=== PATIENT | female | born 1955 | race Caucasian/White ===

== ENCOUNTER → 2021-08-17 11:25 | Outpatient (CLI) | payer BC, SELFPAY ==
--- NOTE | 2021-08-17 | DI.US.S_ITS ---
PROCEDURE: US ABD AORTA ANEURYSM SCREEN INDICATIONS: Personal history of other diseases of the circulatory system TECHNIQUE: Real time scanning was performed of the aorta and iliac arteries, with image documentation. COMPARISON: [facility], , US CAROTID DOPPLER , 08/17/2021, 12:12. FINDINGS: Aorta: Proximal aortic diameter measures 2.4 cm. Mid-aorta measures 1.9 cm. There is a fusiform distal abdominal aortic aneurysm seen that measures 3.7 cm AP x 3.8 cm transversely, with a craniocaudal extent of 5.2 cm. Iliac arteries: Right common iliac artery measures 0.6 cm. Left common iliac artery measures 0.8 cm. IMPRESSION: Fusiform distal abdominal aortic aneurysm seen measuring 3.7 cm AP. Dictated by: Nikita Bowman M.D. on 08/17/2021 at 13:11 Approved by: Nikita Bowman M.D. on 08/17/2021 at 13:12
--- NOTE | 2021-08-17 | DI.US.S_ITS ---
PROCEDURE: US CAROTID DOPPLER BI INDICATIONS: Personal history of other diseases of the circulatory system TECHNIQUE: Color and pulse Doppler interrogation was performed of both carotid systems, with image documentation and velocity measurements. COMPARISON: [facility], US, US ABD AORTA ANEURYSM SCREEN, 08/17/2021, 11:57. FINDINGS: Stenosis calculations are based on SRU (Society of Radiologists in Ultrasound) criteria. The flow velocities and the arterial waveforms are normal within both carotid arterial systems. Atherosclerotic plaque is seen on both sides. The estimated degree of internal carotid artery stenosis is less than 50%. Antegrade flow is confirmed within both vertebral arteries. IMPRESSION: No hemodynamically significant stenosis is seen. Dictated by: Nikita Bowman M.D. on 08/17/2021 at 13:13 Approved by: Nikita Bowman M.D. on 08/17/2021 at 13:13
== END ==
PROVIDERS: PCP Physician Assistant; Referring Provider Physician Assistant; Visit Provider Physician Assistant
DX: Z13.6 Encounter for screening for cardiovascular disorders (principal); I71.4 Abdominal aortic aneurysm, without rupture; Z86.79 Personal history of other diseases of the circulatory system
CPT/HCPCS: 76706; 93880

== ENCOUNTER → 2021-10-06 | Outpatient (CLI) | payer BC, SELFPAY ==
--- NOTE | 2021-10-06 11:57 | DI.CT.S_ITS ---
PROCEDURE: CT CHEST ABD PEL W CON INDICATIONS: lung cancer in 2018 TECHNIQUE: After the administration of oral and intravenous contrast, axial sections acquired from the supraclavicular neck to the pubic symphysis. Coronal and sagittal reformats were performed. For radiation dose reduction, the following was used: automated exposure control, adjustment of mA and/or kV according to patient size. COMPARISON:None. FINDINGS: Image quality: Excellent. CHEST: Lower Neck: No enlarged lymph nodes. Thyroid: Normal size Axillae: No enlarged lymph nodes. Chest Wall: Unremarkable. Lungs, pleural and Airways: Biapical pleural irregularity and septal thickening. Focal spiculation posteromedial right upper lobe without a solid component, likely scar. There has been a prior left lower lobectomy. No masses or nodules are identified. Findings are superimposed on moderate diffuse centrilobular emphysematous changes. No suspicious ground-glass opacities. . Heart: Heart size is normal. No pericardial effusion. Mild coronary calcification. Thoracic Vessels: The aorta and pulmonary arteries demonstrate normal size. Moderate atherosclerotic arch calcification. Mediastinum and Leslie: No left hilar adenopathy. Borderline precarinal lymph node at 1.3 cm. Minimally prominent left paratracheal lymph node at 0.8 cm. No right hilar adenopathy. Esophagus: Minor lower esophageal wall thickening. No hiatal hernia. ABDOMEN: Liver: No masses Gallbladder: Normal wall thickness. Biliary ducts: Nondilated. Pancreas: Normal. Spleen: Normal size. Adrenal Glands: No nodules. Kidneys and Ureters: Normal enhancement. Nonobstructing 4 mm right upper pole stone. No hydronephrosis or hydroureter. No calcifications. . Stomach and Bowel: Stomach, small bowel loops, and appendix are normal. There is extensive diverticular disease of the sigmoid colon. Colon and rectum are otherwise normal. Peritoneum: No abnormal intraperitoneal fluid. No free air. Ventral Wall: Tiny fat containing umbilical hernia. Abdominal Nodes: No retroperitoneal or mesenteric adenopathy by size criteria. Vessels: Fusiform distal abdominal aortic aneurysm 4.8 cm in length demonstrates a small amount of circumferential thrombus and measures 4.0 x 4.0 cm in cross-sectional diameter. Moderate calcification at iliac bifurcation and external iliac arteries. The inferior vena cava is normal caliber. PELVIS: Pelvic Organs: Surgically absent uterus. No visible ovarian tissue. Bladder: Normal wall thickness. Pelvic Nodes: No suspicious adenopathy. Miscellaneous: No soft tissue mass or inguinal hernias. Bones: No suspicious bone lesions. Degenerative disc change at L5-S1. IMPRESSION: 1. No evidence of residual disease post left lower lobectomy. 2. Mildly prominent mediastinal lymph nodes as described. Comparison to prior exams is recommended. 3. Moderate pulmonary emphysema. 4. Nonobstructing right upper pole intrarenal calculus. 5. Distal abdominal aortic aneurysm. Correlate with prior imaging. 6. Sigmoid diverticulosis. 7. No evidence of metastatic disease in the abdomen or pelvis. Dictated by: Becca Sam M.D. on 10/15/2021 at 13:52 Approved by: Becca Sam M.D. on 10/15/2021 at 14:07
== END ==
LOC: CT 10:57
PROVIDERS: PCP Physician Assistant; Referring Provider Internal Medicine Medical Oncology; Visit Provider Internal Medicine Medical Oncology
DX: Z08 Encounter for follow-up examination after completed treatment for malignant neoplasm (principal); Z85.118 Personal history of other malignant neoplasm of bronchus and lung; R59.0 Localized enlarged lymph nodes; J43.9 Emphysema, unspecified; N20.0 Calculus of kidney; I71.4 Abdominal aortic aneurysm, without rupture; K57.30 Diverticulosis of large intestine without perforation or abscess without bleeding
CPT/HCPCS: 71260; 74177

== ENCOUNTER → 2021-10-15 10:27 | Outpatient (CLI) | payer BC, SELFPAY ==
--- NOTE | 2021-10-15 | DI.US.S_ITS ---
PROCEDURE: US ABDOMEN COMPLETE INDICATIONS: GASTRO-ESOPHAGEAL REFLUX DISEASE TECHNIQUE: Real-time scanning was performed of the abdominal and retroperitoneal organs, with image documentation. COMPARISON: None. FINDINGS: Liver: The liver demonstrates normal size. The liver demonstrates generalized moderately increased echogenicity. This decreases ultrasound sensitivity for detection of hepatic masses. The main portal vein demonstrates normal size and demonstrates normal appearing, hepatopetal flow. Gallbladder: No findings of gallstones or sludge are seen. The gallbladder wall is not thickened, measuring 3 mm or less. No specific pericholecystic fluid is seen. The sonographic Boo sign is negative. Biliary ducts: Intrahepatic bile ducts are non-dilated. Extrahepatic bile duct caliber measures 5 mm. Normal is 6-7 mm or less in diameter, or 10 mm or less post-cholecystectomy. Pancreas: Visualized portions of the pancreas are sonographically normal. Spleen: Spleen is normal in size and homogeneous in echotexture. Kidneys: Kidneys are normal in size and echotexture. Right kidney measures 9.7 cm long; left kidney measures 10.3 cm long. No hydronephrosis. No solid masses. There is a 7 mm left inferior shadowing kidney stone seen. Aorta: There is a distal abdominal aortic aneurysm seen, measuring 3.9 cm AP x 4.1 cm transversely, a craniocaudal extent of 4.5 cm. Iliacs: Proximal common iliac arteries are normal in caliber at less than 2.5 cm. IVC: Intrahepatic inferior vena cava is patent. Miscellaneous: No free abdominal fluid. IMPRESSION: A cause of gastroesophageal reflux disease is not seen. The gallbladder demonstrates a normal sonographic appearance. No biliary dilatation is seen. The liver demonstrates increased echogenicity. This finding is nonspecific, yet it is most commonly attributed to fatty infiltration. Mild distal abdominal aortic aneurysm, measuring 3.9 cm AP. Dictated by: Nikita Bowman M.D. on 10/15/2021 at 10:40 Approved by: Nikita Bowman M.D. on 10/15/2021 at 10:42
== END ==
PROVIDERS: PCP Physician Assistant; Referring Provider Internal Medicine Gastroenterology; Visit Provider Internal Medicine Gastroenterology
DX: K21.9 Gastro-esophageal reflux disease without esophagitis (principal); I71.4 Abdominal aortic aneurysm, without rupture
CPT/HCPCS: 76700

== ENCOUNTER → 2022-01-18 12:32 | Outpatient (CLI) | payer BC, SELFPAY ==
--- NOTE | 2022-01-18 | DI.MG.S_ITS ---
BILATERAL DIGITAL SCREENING MAMMOGRAM 3D/2D WITH CAD: 01/18/2022 CLINICAL: Routine screening. Family history of breast cancer. Comparison is made to exams dated: 03/13/2020 mammogram and 01/01/2019 mammogram - out side. Both breasts are almost entirely fatty (category a/<25% glandular tissue). Current study was also evaluated with a Computer Aided Detection (CAD) system. No significant masses, calcifications, or other findings are seen in either breast. There has been no significant interval change. IMPRESSION: NEGATIVE There is no mammographic evidence of malignancy. A 1 year screening mammogram is recommended. Based on the Tyrer Cuzick model (a risk assessment model) the patient's lifetime risk is 3.2% and her 10 year risk is 1.5%. According to the ACR, ACS, and NCCN guidelines, an annual breast MRI exam along with mammogram is recommended if the patient's lifetime risk is 20% or greater. This exam was interpreted at Station ID: [id number]. NOTE: For mammograms, a report in lay terms will be sent to the patient. Approximately 15% of breast malignancies will not be visualized mammographically. In the management of a palpable breast mass, a negative mammogram must not discourage biopsy of a clinically suspicious lesion. Electronically Signed By: Kishan tipton/cait:01/18/2022 13:53:52 letter sent: Normal Exam ACR BI-RADS Category 1: Negative 3341F
--- NOTE | 2022-01-18 12:34 | DI.US.S_ITS ---
PROCEDURE: US THYROID INDICATIONS: Nontoxic single thyroid nodule; Breast screning TECHNIQUE: Real-time scanning was performed of the thyroid gland, with image documentation. COMPARISON: None. FINDINGS: In the right superior thyroid a there is a 3 millimeter predominantly cystic hypoechoic nodule with smooth margins and a traversing septation. No punctate microcalcifications identified. Otherwise normal appearance of the thyroid. IMPRESSION: Tiny 3 millimeter right thyroid lobe nodule appears cystic. Follow-up in 12 months recommended to document stability. Dictated by: Marquis Mo M.D. on 01/18/2022 at 15:55 Approved by: Marquis Mo M.D. on 01/18/2022 at 15:56
== END ==
PROVIDERS: PCP Physician Assistant; Referring Provider Physician Assistant; Visit Provider Physician Assistant
DX: E04.1 Nontoxic single thyroid nodule (principal); Z12.31 Encounter for screening mammogram for malignant neoplasm of breast; Z80.3 Family history of malignant neoplasm of breast
CPT/HCPCS: 76536; 77063; 77067

== ENCOUNTER → 2022-03-16 11:56 | Outpatient (CLI) | payer BC, SELFPAY ==
--- NOTE | 2022-03-16 | DI.RAD.S_ITS ---
PROCEDURE: XR FOOT LT MIN 3V INDICATIONS: foot pain TECHNIQUE: 3 views of the foot were acquired. COMPARISON: [facility], CR, XR FOOT RT MIN 3V, 03/16/2022, 12:05. FINDINGS: Bones: No fractures or dislocations. No suspicious bony lesions. Mild 1st MTP and diffuse interphalangeal joint space narrowing. Plantar calcaneal enthesophyte. Soft tissues: No tibiotalar joint effusion. Achilles tendon appears normal. IMPRESSION: 1. Mild 1st MTP and diffuse interphalangeal joint degeneration. 2. Mild calcaneal enthesopathy. Dictated by: Omar Perkins [facility] Interpreted: Justine Bañuelos MD on 03/16/2022 at 12:40 Transcribed by: LUDY on 03/16/2022 at 12:41 Approved by: Justine Bañuelos M.D. on 03/16/2022 at 15:39
--- NOTE | 2022-03-16 12:00 | DI.RAD.S_ITS ---
PROCEDURE: XR FOOT RT MIN 3V INDICATIONS: Foot pain TECHNIQUE: 3 views of the foot were acquired. COMPARISON: None. FINDINGS: Bones: No fractures or dislocations. No suspicious bony lesions. Mild 1st MTP and diffuse interphalangeal joint space narrowing. Soft tissues: No tibiotalar joint effusion. Achilles tendon appears normal. IMPRESSION: 1. Mild 1st MTP and diffuse interphalangeal joint degeneration. Dictated by: Omar Perkins [facility] Interpreted: Justine Bañuelos MD on 03/16/2022 at 12:39 Transcribed by: LUDY on 03/16/2022 at 12:40 Approved by: Justine Bañuelos M.D. on 03/16/2022 at 15:39
--- NOTE | 2022-03-16 12:00 | DI.CT.S_ITS ---
PROCEDURE: CT CHEST WO CON INDICATIONS: Cough/COPD TECHNIQUE: Noncontrast 5 mm thick sections acquired from the pulmonary apices to the posterior costophrenic angles. 1 mm lung window, 5 mm thick coronal and sagittal and 7 mm axial MIP reformats were then acquired. For radiation dose reduction, the following was used: automated exposure control, adjustment of mA and/or kV according to patient size. COMPARISON: Outside Facility, RG, CT THORAX WITH CONTRAST, 09/04/2019, 10:36. [facility], CT, CT CHEST ABD PEL W CON, 10/06/2021, 11:58. FINDINGS: Image quality: Excellent. Lungs and pleura: Within the right lung apex, there is a wispy focus seen, which is similar to the prior examination and felt most likely be related to scarring. Centrilobular emphysematous changes are seen. These are more prominent at the lung apices than at the lung bases. Left lower lobectomy change can be seen, with associated volume loss. No findings of local recurrence can be seen. No acute air space opacities. No pleural effusions or pneumothorax. Central and peripheral airways are patent and normal in caliber. Mediastinum: Heart size is normal. No pericardial effusion. No mediastinal adenopathy by size criteria. The lymph nodes appear improved compared to the prior examination. Thoracic aorta and central pulmonary arteries are normal in size. Esophagus is normal in caliber. There is a small hiatal hernia. Bones and chest wall: No suspicious bony lesions. No vertebral body compression fractures. No axillary or supraclavicular adenopathy by size criteria. Thyroid gland demonstrates no significant noncontrast abnormality. Abdomen: Visualized upper abdominal solid organs and bowel loops appear normal in the absence of contrast. IMPRESSION: Left lower lobectomy, without findings of local recurrence. Likely scarring can be seen involving the right lung apex, which is similar to the prior CT. Underlying emphysematous changes are seen. On the prior study, borderline prominent mediastinal lymph nodes could be seen. These are improved on the current study. Incidental note is made of: Small hiatal hernia Dictated by: Nikita Bowman M.D. on 03/16/2022 at 16:08 Approved by: Nikita Bowman M.D. on 03/16/2022 at 16:11
== END ==
PROVIDERS: PCP Nurse Practitioner Family; Referring Provider Internal Medicine; Visit Provider Internal Medicine
DX: R05.1 Acute cough (principal); R06.02 Shortness of breath; J44.9 Chronic obstructive pulmonary disease, unspecified; K44.9 Diaphragmatic hernia without obstruction or gangrene; M19.072 Primary osteoarthritis, left ankle and foot; M19.071 Primary osteoarthritis, right ankle and foot; M77.32 Calcaneal spur, left foot; M21.6X1 Other acquired deformities of right foot; M21.6X2 Other acquired deformities of left foot
CPT/HCPCS: 71250; 73630

== ENCOUNTER 2022-09-13 11:18 | Day surgery (SDC) | payer MEDICARE, SELFPAY ==
--- NOTE | 2022-09-13 | PATH_ITS ---
[facility] Accession Number: [id number] No. of containers..02 Tissue . 01 Material submitted: . PART A: stomach - ANTRUM BIOPSY PART B: esophagus, E-G Junction - GE JUNCTION BIOPSY . 01 Diagnosis: A. Stomach, Antrum, Biopsy: Antral mucosa with mild chronic gastritis. No evidence of Helicobacter on H/E stain. Negative for intestinal metaplasia. Negative for dysplasia and malignancy. . B. Gastroesophageal Junction, Biopsy: Squamocolumnar junctional mucosa with mild active inflammation and foveolar hyperplasia, consistent with reflux-related changes. Negative for intestinal metaplasia. Negative for dysplasia and malignancy. MRV 09/15/2022 1744 Local . 01 Electronically signed: . Ingris Grimes MD, Pathologist NPI- [id number] . 01 Gross description: . Part A: ANTRUM BIOPSY: Received in formalin are 2 fragment(s) of rodriguez, soft tissue measuring 0.3 x 0.2 x 0.1 cm to 0.1 x 0.1 x 0.1 cm submitted entirely in 1 cassette(s) Part B: GE JUNCTION BIOPSY: Received in formalin are 2 fragment(s) of rodriguez, soft tissue measuring 0.2 x 0.2 x 0.1 cm to 0.2 x 0.1 x 0.1 cm submitted entirely in 1 cassette(s) /CPE 09/14/2022 0831 Local . 01 Pathologist provided ICD-10: K21.00 . 01 CPT . 538948, 670244 Specimen Comment: A courtesy copy of this report has been sent to [phone] Performed at: 01 [facility] [address] [place] [address] [address], [place], [place] [id number] MD Shaun Baltazar MD Phone: [phone]
[2022-09-13 11:37] VITALS: BP 129/74; PULSE 76; RESP 16; TEMP 35.7; O2SAT 98; BMI 28.3
[2022-09-13] MEDS: LACTATED RINGERS 1,000 ML 84 ML IV (11:53)
--- NOTE | 2022-09-13 12:07 | PM.HP.1 ---
History of Present Illness History of Present Illness Date Patient Seen: 09/13/22 Time Patient Seen: 12:07 Chief complaint: EGD Narrative: I reviewed my office note. The patient is off her rabeprazole x1 week now thinking that it creates constipation and abdominal discomfort. She used some alkaline water and had a reaction to that. She uses a little bit of lemon water at this point. She reports for updated EGD in the setting of established Barretts and esophagitis. [facility] Social History household members: spouse Smoking Status: Former smoker alcohol intake: never Meds Home Medications and Allergies Home Medications Medication Instructions Recorded Confirmed Type atenolol 25 mg tablet 12.5 mg PO DAILY 09/16/21 09/13/22 History atorvastatin 20 mg tablet 20 mg PO DAILY 09/16/21 09/13/22 History bimatoprost 0.01 % eye drops 1 drp ophthalmic (eye) DAILY 09/16/21 08/24/22 History (Fidelina) budesonide 160 mcg-glycopyr 9 2 inh inhalation BID 09/16/21 09/13/22 History mcg-formot 4.8 mcg/actuation HFA inhaler (Breztri Aerosphere) pantoprazole 40 mg tablet,delayed 40 mg PO DAILY 09/16/21 09/13/22 History release cetirizine 10 mg capsule (All Day 10 mg PO DAILY #60 caps 08/24/22 08/24/22 Rx Allergy (cetirizine)) Allergies Allergy/AdvReac Type Severity Reaction Status Date / Time Sulfa (Sulfonamide Allergy Unknown Verified 09/13/22 11:33 Antibiotics) Review of Systems Review of Systems ROS: Yes All systems reviewed with the patient and are negative except as otherwise documented Exam Vital Signs (past 8 hours): - 09/13/22 11:37 Temperature 96.3 F L Pulse Rate 76 Respiratory Rate 16 Blood Pressure 129/74 Pulse Oximetry 98 Oxygen Delivery Method Room Air Oxygen Delivery Method Room Air Const General: cooperative HENMT Head: normal to inspection Eyes General: appearance normal, both eyes and all related structures Neck Neck: normal visual inspection Chest Chest: normal inspection of the chest Resp Effort & Inspection: normal respiratory effort Cardio Rate: regular rate GI Inspection: normal to inspection Skin General: no rashes or lesions noted Neuro General: patient alert and patient awake Extrem General: normal to inspection and no pedal edema Psych Appearance: grossly normal Assessment & Plan Assessment & Plan narrative: 67-year-old female with refractory GERD and known Barretts. Updated EGD is pursued today.
--- NOTE | 2022-09-13 12:08 | PM.PREOP ---
Pre-operative Note Interval Note History & Physical reviewed/Exam performed by Physician: Yes Changes to H&P: No ASA Class (for procedural sedation): II
--- NOTE | 2022-09-13 13:02 | PM.OP.EGD ---
Operative Date/Time/Diagnoses Date of procedure: 09/13/22 Time of procedure: 13:03 Pre-op diagnosis: Refractory reflux history of Barretts Post-op diagnosis: same Procedure & Clinicians Study performed: EGD with biopsies Same procedure as scheduled: Yes Indications: Refractory reflux history of Barretts Surgeon: Faisal Dontao Procedure Notes SCOAP/Timeout: Done Procedure in detail: After the risks and benefits were explained, written and verbal informed consent was obtained. The patient was brought into the procedure room and placed into the left lateral decubitus position. Please see anesthesia note for sedation details. The scope was introduced into the mouth through the bite block and advanced under direct visualization to the 2nd portion of the duodenum. The scope was slowly withdrawn carefully examining the mucosa for any defects or lesions. Retroflexed views were accomplished in the stomach. The stomach was decompressed, the scope was then removed from the patient who tolerated the procedure well. Sedation minutes: 10 Complications: none Impression: 1. Duodenum: This was normal from the bulb through the 2nd portion. 2. Stomach: No gastric outlet obstruction no ulcers no mass lesions. Mild gastropathy was appreciated and biopsies were acquired from the antrum for exclusion of H pylori. The patient had a moderately J-shaped stomach. Retroflexed views of the LES disclosed a subtle sliding hiatal hernia. 3. Esophagus: The squamocolumnar junction correlated generally with the top of the gastric folds at 36 cm from the incisors. The Z-line was a little variable but this did not suggest classic Barretts. Evidence of LA grade C erosive esophagitis was present. Couple of biopsies were acquired from the GE junction for histopathologic analysis in light of prior diagnosis of Barretts. Endoscopic diagnosis 1. Small sliding hiatal hernia 2. Mild gastropathy 3. Irregular Z-line 4. LA grade C erosive esophagitis. Post-procedure Plan for aftercare: 1. Await histopathology. 2. I recommend a trial of [id number] Nexium 20 mg once daily taken 30-60 minutes before breakfast in the morning on an empty stomach. 3. Follow up GI clinic on progress. Should the Nexium be tolerated and effective, a longer-term prescription can be provided. Disposition: PACU
[2022-09-13 13:04] VITALS: BP 112/71; PULSE 78; RESP 12; TEMP 36.4; O2SAT 97
[2022-09-13 13:09] VITALS: BP 112/65; PULSE 74; RESP 14; O2SAT 97
[2022-09-13 13:16] VITALS: BP 117/73; PULSE 74; RESP 18; O2SAT 96
[2022-09-13 13:21] VITALS: BP 105/70; PULSE 70; RESP 14; O2SAT 98
== END 2022-09-13 13:28 | disposition home or self-care (01) ==
PROVIDERS: PCP Nurse Practitioner Family; Referring Provider Internal Medicine Gastroenterology; Visit Provider Internal Medicine Gastroenterology
PROC: 0DJ08ZZ Inspection of Upper Intestinal Tract, Via Natural or Artificial Opening Endoscopic (ICD-10-PCS; CPT 43235; principal; 2022-09-13 12:30)
DX: K21.00 Gastro-esophageal reflux disease with esophagitis, without bleeding (principal); Z87.19 Personal history of other diseases of the digestive system; K31.9 Disease of stomach and duodenum, unspecified; K44.9 Diaphragmatic hernia without obstruction or gangrene; K29.50 Unspecified chronic gastritis without bleeding
CPT/HCPCS: 43239; J2704

== ENCOUNTER 2022-11-20 12:55 | Emergency (ER) | payer MEDICARE, SELFPAY ==
--- NOTE | 2022-11-20 13:09 | DI.RAD.S_ITS ---
PROCEDURE: XR CHEST 2V INDICATIONS: cough, SHOB, COPD, left lobectomy, recent cruise TECHNIQUE: 2 views of the chest were acquired. COMPARISON: None. FINDINGS: Surgical changes and devices: None. Lungs and pleura: Lungs are clear. No pleural effusions or pneumothorax. Mediastinum: Mediastinal contours are normal. Heart size is normal. Bones and chest wall: No suspicious bony abnormalities. Soft tissues appear unremarkable. IMPRESSION: No acute cardiopulmonary process. Dictated by: Chepe Tellez M.D. on 11/20/2022 at 13:33 Approved by: Chepe Tellez M.D. on 11/20/2022 at 13:33
[2022-11-20 13:14] VITALS: BP 122/59; PULSE 86; RESP 24; TEMP 36.9; O2SAT 97; BMI 26.4
--- NOTE | 2022-11-20 13:52 | ED.URI ---
HPI - URI/Sore Throat <Kailyn Sam PA-C - Last Filed: 11/20/22 14:38> General Chief Complaint: Upper Respiratory Symptoms Stated Complaint: possible pneumonia Time Seen by Provider: 11/20/22 13:09 Source: patient Mode of arrival: Ambulatory History of Present Illness HPI Narrative: 67-year-old woman with a history of COPD presents with concern for 7 days of upper respiratory symptoms with cough that has been persistent irritating productive of yellow sputum a burning sensation in her sternum when she coughs and congestion and mild fatigue. Patient states that she has been on a cruise for about the past 7 days just got off the ship today she is been using [id number] cough medicines with limited relief from her symptoms. She does state in the past she has had antibiotics and steroids for COPD exacerbations, she is not a current smoker, she says she tries to avoid steroid medications when she can. Yesterday she used a albuterol nebulizer treatment from her son, she says this helped a little bit with her symptoms but she has not used an albuterol nebulizer today. She denies fevers, chills, nausea, vomiting, chest pain, abdominal pain, shortness of breath with exertion or any other symptoms. Related Data Home Medications Medication Instructions Recorded Confirmed atenolol 25 mg tablet 12.5 mg PO DAILY 09/16/21 09/29/22 atorvastatin 20 mg tablet 20 mg PO DAILY 09/16/21 09/29/22 budesonide 160 mcg-glycopyr 9 2 inh inhalation BID 09/16/21 09/29/22 mcg-formot 4.8 mcg/actuation HFA inhaler ([employer]) Previous Rx's Medication Instructions Recorded cetirizine 10 mg capsule (All Day 10 mg PO DAILY #60 caps 08/24/22 Allergy (cetirizine)) amoxicillin 500 mg-potassium 1 tab PO Q8H COPD exacerbation 10 11/20/22 clavulanate 125 mg tablet days #30 tabs (Augmentin) benzonatate 100 mg capsule 100 mg PO TID PRN cough #30 caps 11/20/22 prednisone 20 mg tablet 40 mg PO DAILY COPD exacerbation 4 11/20/22 days #8 tabs Allergies Allergy/AdvReac Type Severity Reaction Status Date / Time Sulfa (Sulfonamide Allergy Unknown Hives Verified 11/20/22 13:14 Antibiotics) Review of Systems <Kailyn Sam PA-C - Last Filed: 11/20/22 14:38> Review of Systems Narrative: See HPI Patient History <Kailyn Sam PA-C - Last Filed: 11/20/22 14:38> Medical History Asthma (~2009) Gonsales's esophagus (~2019) Carpal tunnel syndrome (~1994) Chronic back pain (~2011) COPD (chronic obstructive pulmonary disease) (~2016) Diverticular disease (~2009) Gastric reflux (~2019) Gastric ulcer (~2019) Lung cancer (~2016) Osteoarthritis (~2014) Osteoporosis (~2014) Shoulder pain (~2018) Sleep apnea (~2018) Surgical History Anesthesia History of carotid endarterectomy (~2017) History of carpal tunnel release (~1994) History of hysterectomy (~2002) History of knee surgery (~2009) Status post lobectomy of lung (~2017) Family History Father History of heart disease Hypertension Hyperlipidemia Mother History of heart disease Alzheimer's disease Brother History of heart disease Grandmother Cancer Social History household members: spouse Smoking Status: Former smoker alcohol intake: never Smoking Status: Former smoker Substance Use Type: does not use Exam <Kailyn Sam PA-C - Last Filed: 11/20/22 14:38> Narrative Exam Narrative: GENERAL: [67] year old patient appears stated age. Well-developed patient, in mild distress. HEAD: Atraumatic. Normocephalic. EYES: Pupils equal round and reactive. Extraocular motions intact. No scleral icterus. No injection or drainage. ENT: Nose without bleeding, purulent drainage. Airway patent. NECK: Trachea midline. Non tender CARDIOVASCULAR: Regular rate and rhythm without murmurs, gallops, or rubs. RESPIRATORY: Clear to auscultation, lung sounds slightly diminished in the bases. Breath sounds equal bilaterally. No wheezes, rales, or rhonchi, respiratory rate 24. GASTROINTESTINAL: Abdomen soft, non-tender, nondistended. EXTREMITIES: No edema or joint tenderness. BACK: Nontender without deformity or crepitance. No flank tenderness. NEURO: AOx3. SKIN: No rash or erythema of visible areas Initial Vital Signs Initial Vital Signs: Vital Signs Temperature 98.4 F 11/20/22 13:14 Pulse Rate 86 11/20/22 13:14 Respiratory Rate 24 11/20/22 13:14 Blood Pressure 122/59 L 11/20/22 13:14 Pulse Oximetry 97 11/20/22 13:14 Oxygen Delivery Method Room Air 11/20/22 13:14 <DO Dhaval Bhagat Last Filed: 11/20/22 14:52> Initial Vital Signs Initial Vital Signs: Vital Signs Temperature 98.4 F 11/20/22 13:14 Pulse Rate 86 11/20/22 13:14 Respiratory Rate 24 11/20/22 13:14 Blood Pressure 122/59 L 11/20/22 13:14 Pulse Oximetry 97 11/20/22 13:14 Oxygen Delivery Method Room Air 11/20/22 13:14 Course <Kailyn Sam PA-C - Last Filed: 11/20/22 14:38> Orders Ordered: ED Orders 11/20/22 13:09 CXR [XR chest 2V] Stat 11/20/22 13:20 COVID19 -Nasal RAPID Stat Discontinued Medications Albuterol (Albuterol Hfa Prepack) 1 box MISC SEEINSTR ONE Stop: 11/20/22 13:58 Last Admin: 11/20/22 14:13 Dose: 1 box Documented By: BECKA Vital Signs Vital signs: Vital Signs - 8 hr 11/20/22 13:14 11/20/22 13:53 11/20/22 14:27 Temperature 98.4 F Pulse Rate 86 86 Respiratory Rate 24 20 Blood Pressure 122/59 L Pulse Oximetry 97 98 98 Oxygen Delivery Method Room Air Room Air Room Air Oxygen Flow Rate 0 Fraction of Inspired Oxygen 21 11/20/22 14:45 Temperature Pulse Rate 81 Respiratory Rate 22 Blood Pressure 143/84 H Pulse Oximetry 98 Oxygen Delivery Method Room Air Oxygen Flow Rate Fraction of Inspired Oxygen <DO Dhaval Bhagat Last Filed: 11/20/22 14:52> Orders Ordered: ED Orders 11/20/22 13:09 CXR [XR chest 2V] Stat 11/20/22 13:20 COVID19 -Nasal RAPID Stat Discontinued Medications Albuterol (Albuterol Hfa Prepack) 1 box MISC SEEINSTR ONE Stop: 11/20/22 13:58 Last Admin: 11/20/22 14:13 Dose: 1 box Documented By: BECKA Vital Signs Vital signs: Vital Signs - 8 hr 11/20/22 13:14 11/20/22 13:53 11/20/22 14:27 Temperature 98.4 F Pulse Rate 86 86 Respiratory Rate 24 20 Blood Pressure 122/59 L Pulse Oximetry 97 98 98 Oxygen Delivery Method Room Air Room Air Room Air Oxygen Flow Rate 0 Fraction of Inspired Oxygen 21 11/20/22 14:45 Temperature Pulse Rate 81 Respiratory Rate 22 Blood Pressure 143/84 H Pulse Oximetry 98 Oxygen Delivery Method Room Air Oxygen Flow Rate Fraction of Inspired Oxygen MDM - URI/Sore Throat <Kailyn Sam PA-C - Last Filed: 11/20/22 14:38> Differential Diagnosis Differential diagnosis: Likely upper respiratory infection, viral infection, bronchitis and other (COPD exacerbation) Medical Records Attestation: I reviewed the patient's medical records. Lab Data Attestation: I reviewed the patient's lab results. Labs: Lab Results 11/20/22 Range/Units 13:20 SARS-CoV-2 (PCR) Positive H (Negative) Imaging Data Chest x-ray: My Impression: Agree with Radiology interpretation Radiologist's Impression: [address] [address] XRay Report Signed Patient: Maddie Nassar MR#: [id number] : 1955 Acct:[id number] Age/Sex: 67 / F Date of Service: 11/20/22 Loc: ED Accession Number: [id number] ?? Procedure: XR chest 2V Ordering Provider: Kailyn Sam P.A-C PROCEDURE:? XR CHEST 2V ? INDICATIONS:? cough, SHOB, COPD, left lobectomy, recent cruise ? TECHNIQUE:? 2 views of the chest were acquired.? ? COMPARISON:? None. ? FINDINGS:? ? Surgical changes and devices:? None.? ? Lungs and pleura:? Lungs are clear.? No pleural effusions or pneumothorax.? ? Mediastinum:? Mediastinal contours are normal.? Heart size is normal.? ? Bones and chest wall:? No suspicious bony abnormalities.? Soft tissues appear unremarkable.? ? IMPRESSION:? No acute cardiopulmonary process. ? ? ? Dictated by: Chepe Tellez M.D. on 11/20/2022 at 13:33 ? ? Approved by: Chepe Tellez M.D. on 11/20/2022 at 13:33?? MDM Narrative Medical decision making narrative: This is a 67-year-old woman with a history of left lower lobectomy, COPD, not currently a smoker who presents with concern for upper respiratory symptoms for 7 days after coming off of a cruise today. Patient's testing returns cause positive for COVID, her chest x-ray is negative for pneumonia, I am suspicious for COPD exacerbation given she has had a cough productive of yellow sputum for the past 5 days history of COPD and shortness of breath worse than her baseline. Her history and exam are less suspicious for cardiac etiology and cardiac workup is not obtained today. She does receive evaluation by RT and albuterol with spacer treatment here in the emergency department with education. She already has a steroid inhaler for her COPD. She is satting well on room air at 98%, and is prescribed antibiotics 10-day course of Augmentin, short course of prednisone and benzonatate for treatment. Return precautions provided, follow-up plan discussed, all questions answered. <Nikita Zarate, DO - Last Filed: 11/20/22 14:52> Lab Data Labs: Lab Results 11/20/22 Range/Units 13:20 SARS-CoV-2 (PCR) Positive H (Negative) Discharge Plan Departure Patient Disposition: Home Clinical Impression: Acute exacerbation of chronic obstructive pulmonary disease (COPD), COVID-19 Instructions: COVID-19 Activity Restrictions/Additional Instructions: *You have been diagnosed with COVID-19, COPD exacerbation *What to do: *Please continue to take your regular medications as directed. [3 ] New medication prescriptions sent to your pharmacy: [Prednisone, Augmentin, benzonatate] [ ] New medication written as a paper prescription [ ] No new medications given *Please follow up with your primary care provider in 2-3 days, call for an appointment. Let them know you were seen in the Emergency Department and that we ask that you be seen in follow up. We will electronically transmit a record of today's note if your PCP is in our system. UR positive for COVID today, this likely explains a lot of your recent symptoms, but because of your history of COPD as well as your productive cough with yellow sputum I am prescribing antibiotics for you even though you currently have a virus. I am also prescribing a short course of steroid medication for you as well. Please take both of these as prescribed even if you are feeling better. I also prescribed a cough medicine. *If you do not have a primary care provider please contact the [facility] Resource line at [phone]. They will ask some questions about your medical history and help get you set up with a doctor in the community. *Return to Emergency Department if you should have any new, worsening or concerning symptoms, such as [fever greater than 101 F, shaking chills, worsening pain, persistent vomiting or other bothersome symptoms] Prescriptions: New amoxicillin-pot clavulanate [Augmentin] 500-125 mg tablet 1 tab PO Q8H 10 Days Qty: 30 0RF prednisone 20 mg tablet 40 mg PO DAILY 4 Days Qty: 8 0RF benzonatate 100 mg capsule 100 mg PO TID PRN (Reason: cough) Qty: 30 1RF No Action All Day Allergy (cetirizine) 10 mg capsule 10 mg PO DAILY Qty: 60 0RF Rx Instructions: take one tab BID for 3 days then daily until clear atorvastatin 20 mg Tablet 20 mg PO DAILY atenolol 25 mg Tablet 12.5 mg PO DAILY Breztri Aerosphere 160-9-4.8 mcg/actuation Hfa Aerosol Inhaler 2 inh INHALATION BID Referrals: Irma Michele, [facility] [Primary Care Provider] - Stand Alone Forms: Patient Portal/API <Nikita Zarate, DO - Last Filed: 11/20/22 14:52> Cosign ED Attending Cosgeorgieature Attestation: Dr Zarate Co-Sign Statement: I was available for consultation during this patient's emergency department visit. This chart is signed by myself for administrative purposes only. I did not have direct contact with this patient during this visit. They were seen independently by the APC.
[2022-11-20 13:53] VITALS: PULSE 86; O2SAT 98
[2022-11-20 13:53] LABS: COVID19 -Nasal RAPID POSITIVE (Negative)
[2022-11-20] MEDS: ALBUTEROL HFA PREPACK 1 BOX MISC (14:13)
[2022-11-20 14:27] VITALS: RESP 20; O2SAT 98
[2022-11-20 14:45] VITALS: BP 143/84; PULSE 81; RESP 22; O2SAT 98
== END 2022-11-20 14:46 | disposition home or self-care (01) ==
PROVIDERS: Emergency Provider Student in an Organized Health Care Education/Training Program; PCP Nurse Practitioner Family
DX: U07.1 COVID-19 (principal); J44.1 Chronic obstructive pulmonary disease with (acute) exacerbation
CPT/HCPCS: 71046; 87635; 94640; 99282; 99283; C9803

== ENCOUNTER → 2023-01-20 | Outpatient (CLI) | payer OTHER, SELFPAY ==
--- NOTE | 2023-01-20 | DI.MG.S_ITS ---
BILATERAL DIGITAL SCREENING MAMMOGRAM 3D/2D WITH CAD: 01/20/2023 CLINICAL: Routine screening. Family history of breast cancer. Comparison is made to exams dated: 01/18/2022 mammogram - [facility], 03/13/2020 mammogram, and 01/01/2019 mammogram - out side. Both breasts are almost entirely fatty (category a/<25% glandular tissue). Current study was also evaluated with a Computer Aided Detection (CAD) system. There is a benign focal asymmetry in the left breast. No significant masses, calcifications, or other findings are seen in either breast. There has been no significant interval change. IMPRESSION: BENIGN There is no mammographic evidence of malignancy. A 1 year screening mammogram is recommended. Based on the Tyrer Cuzick model (a risk assessment model) the patient's lifetime risk is 3.1% and her 10 year risk is 1.5%. According to the ACR, ACS, and NCCN guidelines, an annual breast MRI exam along with mammogram is recommended if the patient's lifetime risk is 20% or greater. This exam was interpreted at Station ID: [id number]. NOTE: For mammograms, a report in lay terms will be sent to the patient. Approximately 15% of breast malignancies will not be visualized mammographically. In the management of a palpable breast mass, a negative mammogram must not discourage biopsy of a clinically suspicious lesion. Electronically Signed By: Deshawn amaro/cait:01/30/2023 14:04:03 letter sent: Normal Exam ACR BI-RADS Category 2: Benign Finding(s) 3342F
== END ==
LOC: MAMMO 13:22
PROVIDERS: PCP Physician Assistant; Referring Provider Nurse Practitioner Family; Visit Provider Physician Assistant
DX: Z12.31 Encounter for screening mammogram for malignant neoplasm of breast (principal)
CPT/HCPCS: 77063; 77067

== ENCOUNTER 2023-01-25 13:00 | Inpatient (IN) | payer OTHER, SELFPAY ==
[2023-01-25] VITALS (32 sets, daily range): BP systolic 80–153; BP diastolic 26–85; PULSE 63–101; RESP 15–43; TEMP 36.4–37.9; O2SAT 92–100; BMI 27.3
--- NOTE | 2023-01-25 | DI.RAD.S_ITS ---
PROCEDURE: XR ABDOMEN 1V INDICATIONS: right sided kidney stone TECHNIQUE: Three intra-operative images acquired by the Urology service. COMPARISON: None. FINDINGS: There is opacification of the right urinary collecting system. There is a wire in the renal pelvis and subsequent images of the proximal aspect of a nephroureteral stent. IMPRESSION: Intraoperative fluoroscopy for right ureteral stent placement. Dictated by: Becca Sam M.D. on 01/25/2023 at 19:50 Approved by: Becca Sam M.D. on 01/25/2023 at 19:50
[2023-01-25] MEDS: ONDANSETRON 4 MG ODT SL (13:24)
[2023-01-25 13:59] LABS: Bacteria Urine Moderate (10-30); Culture Indicated Urine Specimen Cultured; RBC Urine 10-30/HPF (0-5/HPF); Squamous Epithelial Cell Urine 1-5 /HPF (0-5/HPF); WBC Urine 10-30/HPF (0-5/HPF)
--- NOTE | 2023-01-25 14:28 | ED.FEMALEGU ---
HPI - Female Genitourinary <Anish Bocanegra PA-C - Last Filed: 01/25/23 18:02> General Chief complaint: Urogenital-Female Stated complaint: Vomiting, ABD pain Time Seen by Provider: 01/25/23 14:21 Source: patient Mode of arrival: Ambulatory History of Present Illness HPI Narrative: 67-year-old female with past medical history sleep apnea, COPD, asthma, osteoporosis, GERD, Gonsales's esophagus, osteoarthritis presents to the ED with 1 day of right lower quadrant pain, right flank pain, nausea, vomiting, chills. Patient denies fever, chest pain, shortness of breath, lightheadedness, dizziness, syncope. Patient also endorses urinary urgency and urinary frequency. Patient has a history of a descending AAA. Patient endorses 10/10 pain and nausea in the ED. patient endorses that she was diagnosed with a tiny kidney stone about 6 months ago. Patient states that she gets UTIs every once in awhile but not frequently. Related Data Home Medications Medication Instructions Recorded Confirmed atenolol 25 mg tablet 12.5 mg PO DAILY 09/16/21 09/29/22 atorvastatin 20 mg tablet 20 mg PO DAILY 09/16/21 09/29/22 budesonide 160 mcg-glycopyr 9 2 inh inhalation BID 09/16/21 09/29/22 mcg-formot 4.8 mcg/actuation HFA inhaler ([employer]) Previous Rx's Medication Instructions Recorded cetirizine 10 mg capsule (All Day 10 mg PO DAILY #60 caps 08/24/22 Allergy (cetirizine)) benzonatate 100 mg capsule 100 mg PO TID PRN cough #30 caps 11/20/22 Allergies Allergy/AdvReac Type Severity Reaction Status Date / Time Sulfa (Sulfonamide Allergy Unknown Hives Verified 11/20/22 13:14 Antibiotics) Review of Systems <Anish Bocanegra PA-C - Last Filed: 01/25/23 18:02> Review of Systems ROS Unobtainable: All systems reviewed & are unremarkable except as noted in HPI and below Constitutional Constitutional: Reports chills, Denies fatigue, Denies fever(s), Denies frequent falls, Denies lethargy and Denies weakness Eyes Eyes: Denies change in vision, Denies eye discharge, Denies irritation and Denies loss of vision ENT Ears, Nose, Mouth, and Throat: Denies change in voice, Denies dizziness, Denies neck pain, Denies sore throat and Denies throat swelling Cardiovascular Cardiovascular: Denies chest pain, Denies irregular heart rhythm, Denies lightheadedness, Denies palpitations, Denies dyspnea, Denies dyspnea on exertion and Denies orthopnea Respiratory Respiratory: Denies cough, Denies dyspnea, Denies dyspnea on exertion and Denies wheezing Gastrointestinal Gastrointestinal: Denies abdominal pain, Denies change in bowel habits, Denies diarrhea, Reports nausea and Reports vomiting Comments: Right flank pain, right lower quadrant pain Genitourinary Genitourinary: Denies hematuria, Denies flank pain, Denies urinary incontinence and Reports urinary urgency Comments: Urinary frequency Musculoskeletal Musculoskeletal: Denies back pain, Denies muscle weakness, Denies neck pain, Denies numbness and Denies tingling Integumentary/Breasts Skin/Breast: Denies pruritus, Denies erythema, Denies rash and Denies wounds Neurologic Neurologic: Denies behavioral changes, Denies confusion, Denies dizziness, Denies frequent falls, Denies loss of vision, Denies numbness, Denies tingling and Denies weakness Psychiatric Psychiatric: Denies anxiety, Denies behavioral changes, Denies confusion, Denies depression, Denies homicidal ideation and Denies suicidal ideation Endocrine Endocrine: Denies fatigue, Denies flushing and Denies palpitations Hematologic/Lymphatic Hematologic/Lymphatic: Denies easy bruising Allergic/Immunologic Allergic/Immunologic: Denies urticaria, Denies throat swelling and Denies wheezing Patient History <Anish Bocanegra PA-C - Last Filed: 01/25/23 18:02> Medical History Asthma (~2009) Gonsales's esophagus (~2019) Carpal tunnel syndrome (~1994) Chronic back pain (~2011) COPD (chronic obstructive pulmonary disease) (~2016) Diverticular disease (~2009) Gastric reflux (~2019) Gastric ulcer (~2019) Lung cancer (~2016) Osteoarthritis (~2014) Osteoporosis (~2014) Shoulder pain (~2018) Sleep apnea (~2018) Surgical History Anesthesia History of carotid endarterectomy (~2017) History of carpal tunnel release (~1994) History of hysterectomy (~2002) History of knee surgery (~2009) Status post lobectomy of lung (~2017) Family History Father History of heart disease Hypertension Hyperlipidemia Mother History of heart disease Alzheimer's disease Brother History of heart disease Grandmother Cancer Last Alcoholic Drink: does not use Substance Use Type: does not use Exam <Anish Bocanegra PA-C - Last Filed: 01/25/23 18:02> Narrative Exam Narrative: Const General:?cooperative, healthy appearing and comfortable HENIN Head:?normal to inspection Ears:?hearing grossly normal bilaterally Nose:?external nose normal Face and sinus:?normal facial exam and sinuses nontender Mouth:?oral mucosae normal Throat:?posterior oropharynx normal Eyes General:?appearance normal, both eyes and all related structures Neck Neck:?normal visual inspection and no lymphadenopathy noted Resp Effort & Inspection:?normal respiratory effort Auscultation:?clear to auscultation bilaterally Cardio Rate:?regular rate Rhythm:?regular rhythm GI Abdomen is soft, nondistended. Generalized tenderness to palpation. Neuro General:?patient alert, patient awake and patient oriented x3 Initial Vital Signs Initial Vital Signs: Vital Signs Temperature 97.5 F L 01/25/23 13:14 Pulse Rate 67 01/25/23 13:14 Respiratory Rate 18 01/25/23 13:14 Blood Pressure 108/67 01/25/23 13:14 Pulse Oximetry 98 01/25/23 13:14 Oxygen Delivery Method Room Air 01/25/23 13:14 <Gay Cameron DO - Last Filed: 01/25/23 18:45> Initial Vital Signs Initial Vital Signs: Vital Signs Temperature 97.5 F L 01/25/23 13:14 Pulse Rate 67 01/25/23 13:14 Respiratory Rate 18 01/25/23 13:14 Blood Pressure 108/67 01/25/23 13:14 Pulse Oximetry 98 01/25/23 13:14 Oxygen Delivery Method Room Air 01/25/23 13:14 Course <Anish Bocanegra PA-C - Last Filed: 01/25/23 18:02> Orders Ordered: ED Orders 01/25/23 13:20 Urine Culture Stat Urine Microscopic Stat 01/25/23 13:59 EKG-12 Lead Stat 01/25/23 14:40 Complete Blood Count AUTO DIFF Stat Comprehensive Metabolic Panel Stat Lactate (Lactic Acid) Stat Lipase Stat 01/25/23 15:42 CT abdomen pelvis w con Stat 01/25/23 17:50 Blood Culture Stat 01/25/23 17:55 CBC Auto Diff [Complete Blood Count AUTO DIFF] Stat Type and Screen Stat Hydrocodone Bitart/Acetaminophen (Hydrocodone/Acet 5/325 Tablet) 1 tab PO PACUNOW PRN PRN Reason: Mild or moderate pain Albuterol (Albuterol 2.5 Mg/3 Ml Neb (Adult)) 2.5 mg INH NOW PRN PRN Reason: Coughing, Wheezing, Dyspnea Albuterol/Ipratropium (Albuterol/Ipratropium 3 Ml Ampul) 3 ml INH Q1H PRN PRN Reason: Shortness Of Breath Benzocaine (Benzocaine/Menthol 1 Anca Pkt) 1 each PO PRN PRN PRN Reason: Sore Throat Fentanyl (Fentanyl 100 Mcg/2 Ml Inj) 0 mcg IV Q5M PRN PRN Reason: Pain, Moderate (4-6) Hydromorphone HCl (Hydromorphone 1 Mg Inj) 0 mg IV Q5MIN PRN PRN Reason: Pain, Moderate (4-6) Hydroxyzine Pamoate (Hydroxyzine Pamoate 25 Mg Capsule) 25 mg PO NOW PRN PRN Reason: Pain, Mild (1-3) Lactated Ringer's (Lactated Ringers) 1,000 mls @ 21 mls/hr IV CONT TYRONE Lorazepam (Lorazepam 2 Mg/Ml Inj) 0.25 mg IV NOW PRN PRN Reason: Anxiety Meperidine HCl (Meperidine 50 Mg/Ml Inj) 25 mg IV PACUNOW PRN PRN Reason: Moderate pain or shivering Metoclopramide HCl (Metoclopramide 10 Mg/2 Ml Inj) 10 mg IV NOW PRN PRN Reason: Nausea And Vomiting Ondansetron HCl (Ondansetron 4 Mg Odt) 4 mg SL NOW PRN PRN Reason: Nausea And Vomiting Last Admin: 01/25/23 13:24 Dose: 4 mg Documented By: GUERO Ondansetron HCl (Ondansetron 4 Mg/2 Ml Inj) 4 mg IV NOW PRN PRN Reason: Nausea And Vomiting Oxycodone HCl (Oxycodone Ir 5 Mg Tablet) 5 mg PO PACUNOW PRN PRN Reason: Mild or moderate pain Oxycodone/Acetaminophen (Oxycodone/Acetaminophen 5/325 Tablet) 1 tab PO PACUNOW PRN PRN Reason: Mild or Moderate Pain Discontinued Medications Sodium Chloride (Normal Saline 0.9%) 1,000 mls @ 1,000 mls/hr IV BOLUS ONE Stop: 01/25/23 17:49 Last Admin: 01/25/23 16:59 Dose: 1,000 mls/hr Documented By: GERDA Ceftriaxone Sodium 1,000 mg/ (Sodium Chloride) 100 mls @ 200 mls/hr IV NOW ONE Stop: 01/25/23 16:55 Last Infusion: 01/25/23 17:41 Dose: 0 mls/hr Documented By: Admin: 01/25/23 17:40 Dose: 200 mls/hr Documented By: LIZZETH Gentamicin Sulfate 240 mg/ (Sodium Chloride) 106 mls @ 106 mls/hr IV NOW ONE Stop: 01/25/23 17:49 Ketorolac Tromethamine (Ketorolac 30 Mg/Ml Vial) 15 mg IV NOW ONE Stop: 01/25/23 14:36 Last Admin: 01/25/23 14:45 Dose: 15 mg Documented By: GERDA Morphine Sulfate (Morphine 4 Mg/Ml Inj) 4 mg IV NOW ONE Stop: 01/25/23 15:57 Last Admin: 01/25/23 16:57 Dose: 4 mg Documented By: GERDA Vital Signs Vital signs: Vital Signs - 8 hr 01/25/23 13:14 01/25/23 15:40 01/25/23 17:03 Temperature 97.5 F L Pulse Rate 67 80 Respiratory Rate 18 Blood Pressure 108/67 153/66 H 151/77 H Pulse Oximetry 98 100 Oxygen Delivery Method Room Air Room Air 01/25/23 17:03 01/25/23 17:30 01/25/23 17:31 Temperature Pulse Rate 93 H 101 H Respiratory Rate 41 H 43 H Blood Pressure 129/56 L Pulse Oximetry 93 Oxygen Delivery Method 01/25/23 17:31 Temperature Pulse Rate 101 H Respiratory Rate 35 H Blood Pressure Pulse Oximetry 92 Oxygen Delivery Method <Gay Cameron, DO - Last Filed: 01/25/23 18:45> Orders Ordered: ED Orders 01/25/23 13:20 Urine Culture Stat Urine Microscopic Stat 01/25/23 13:59 EKG-12 Lead Stat 01/25/23 14:40 Complete Blood Count AUTO DIFF Stat Comprehensive Metabolic Panel Stat Lactate (Lactic Acid) Stat Lipase Stat 01/25/23 15:42 CT abdomen pelvis w con Stat 01/25/23 17:50 Blood Culture Stat 01/25/23 17:55 CBC Auto Diff [Complete Blood Count AUTO DIFF] Stat Type and Screen Stat Hydrocodone Bitart/Acetaminophen (Hydrocodone/Acet 5/325 Tablet) 1 tab PO PACUNOW PRN PRN Reason: Mild or moderate pain Albuterol (Albuterol 2.5 Mg/3 Ml Neb (Adult)) 2.5 mg INH NOW PRN PRN Reason: Coughing, Wheezing, Dyspnea Albuterol/Ipratropium (Albuterol/Ipratropium 3 Ml Ampul) 3 ml INH Q1H PRN PRN Reason: Shortness Of Breath Benzocaine (Benzocaine/Menthol 1 Anca Pkt) 1 each PO PRN PRN PRN Reason: Sore Throat Fentanyl (Fentanyl 100 Mcg/2 Ml Inj) 0 mcg IV Q5M PRN PRN Reason: Pain, Moderate (4-6) Hydromorphone HCl (Hydromorphone 1 Mg Inj) 0 mg IV Q5MIN PRN PRN Reason: Pain, Moderate (4-6) Hydroxyzine Pamoate (Hydroxyzine Pamoate 25 Mg Capsule) 25 mg PO NOW PRN PRN Reason: Pain, Mild (1-3) Lactated Ringer's (Lactated Ringers) 1,000 mls @ 21 mls/hr IV CONT TYRONE Lorazepam (Lorazepam 2 Mg/Ml Inj) 0.25 mg IV NOW PRN PRN Reason: Anxiety Meperidine HCl (Meperidine 50 Mg/Ml Inj) 25 mg IV PACUNOW PRN PRN Reason: Moderate pain or shivering Metoclopramide HCl (Metoclopramide 10 Mg/2 Ml Inj) 10 mg IV NOW PRN PRN Reason: Nausea And Vomiting Ondansetron HCl (Ondansetron 4 Mg Odt) 4 mg SL NOW PRN PRN Reason: Nausea And Vomiting Last Admin: 01/25/23 13:24 Dose: 4 mg Documented By: GUERO Ondansetron HCl (Ondansetron 4 Mg/2 Ml Inj) 4 mg IV NOW PRN PRN Reason: Nausea And Vomiting Oxycodone HCl (Oxycodone Ir 5 Mg Tablet) 5 mg PO PACUNOW PRN PRN Reason: Mild or moderate pain Oxycodone/Acetaminophen (Oxycodone/Acetaminophen 5/325 Tablet) 1 tab PO PACUNOW PRN PRN Reason: Mild or Moderate Pain Discontinued Medications Sodium Chloride (Normal Saline 0.9%) 1,000 mls @ 1,000 mls/hr IV BOLUS ONE Stop: 01/25/23 17:49 Last Admin: 01/25/23 16:59 Dose: 1,000 mls/hr Documented By: GERDA Ceftriaxone Sodium 1,000 mg/ (Sodium Chloride) 100 mls @ 200 mls/hr IV NOW ONE Stop: 01/25/23 16:55 Last Infusion: 01/25/23 17:41 Dose: 0 mls/hr Documented By: Admin: 01/25/23 17:40 Dose: 200 mls/hr Documented By: LIZZETH Gentamicin Sulfate 240 mg/ (Sodium Chloride) 106 mls @ 106 mls/hr IV NOW ONE Stop: 01/25/23 17:49 Ketorolac Tromethamine (Ketorolac 30 Mg/Ml Vial) 15 mg IV NOW ONE Stop: 01/25/23 14:36 Last Admin: 01/25/23 14:45 Dose: 15 mg Documented By: GERDA Morphine Sulfate (Morphine 4 Mg/Ml Inj) 4 mg IV NOW ONE Stop: 01/25/23 15:57 Last Admin: 01/25/23 16:57 Dose: 4 mg Documented By: GERDA Vital Signs Vital signs: Vital Signs - 8 hr 01/25/23 13:14 01/25/23 15:40 01/25/23 17:03 Temperature 97.5 F L Pulse Rate 67 80 Respiratory Rate 18 Blood Pressure 108/67 153/66 H 151/77 H Pulse Oximetry 98 100 Oxygen Delivery Method Room Air Room Air 01/25/23 17:03 01/25/23 17:30 01/25/23 17:31 Temperature Pulse Rate 93 H 101 H Respiratory Rate 41 H 43 H Blood Pressure 129/56 L Pulse Oximetry 93 Oxygen Delivery Method 01/25/23 17:31 Temperature Pulse Rate 101 H Respiratory Rate 35 H Blood Pressure Pulse Oximetry 92 Oxygen Delivery Method MDM - Female Genitourinary <Anish Bocanegra PA-C - Last Filed: 01/25/23 18:02> Lab Data 01/25/23 17:55 01/25/23 14:40 Labs: Lab Results 01/25/23 01/25/23 01/25/23 Range/Units 13:20 14:40 14:40 WBC 8.6 (4.5-11.0) X10^3/uL RBC 4.51 (4.0-5.2) X10^6/uL Hgb 14.4 (12.0-16.0) g/dL Hct 42.1 (36-46) % MCV 93.3 (80-100) fL MCH 31.9 (26-34) PG MCHC 34.1 (30-36) % RDW 14.5 (11.6-14.8) % Plt Count 193 (150-400) X10^3/uL Neut % (Auto) 90.4 H (50-75) % Lymph % (Auto) 7.7 L (25-40) % [place] % (Auto) 1.4 L (3-14) % Eos % (Auto) 0.3 L (2-4) % Baso % (Auto) 0.2 (0-2) % Neut # (Auto) 7800 H (3238-0915) /uL Lymph # (Auto) 700 L (4315-4260) /uL [place] # (Auto) 100 (0-900) /uL Eos # (Auto) 0 (0-450) /uL Baso # (Auto) 0 (0-100) /uL Sodium 140 (137-145) mmol/L Potassium 4.2 (3.4-5.1) mmol/L Chloride 108 H (98-107) mmol/L Carbon Dioxide 25 (22-32) mmol/L BUN 14 (7-17) mg/dL Creatinine 0.83 (0.52-1.04) mg/dL Estimated GFR > 60 (>60) mL/min BUN/Creatinine Ratio 16.9 (6-22) Glucose 122 H (80-110) mg/dL Lactate (0.7-2.1) mmol/L Calcium 8.9 (8.4-10.2) mg/dL Total Bilirubin 1.3 (0.2-1.3) mg/dL AST 47 H (14-36) IU/L ALT 45 H (<35) IU/L Alkaline Phosphatase 85 (38-126) U/L Total Protein 7.2 (6.3-8.2) g/dL Albumin 4.3 (3.5-5.0) g/dL Globulin 2.9 (1.7-4.1) g/dL Albumin/Globulin Ratio 1.5 (1.0-2.8) Lipase 90 (23-300) U/L Urine RBC 10-30/hpf H (0-5/HPF) Urine WBC 10-30/hpf H (0-5/HPF) Ur Squamous Epith Cells 1-5 /hpf (0-5/HPF) Urine Bacteria Moderate (10-30) H (None) Ur Culture Indicated? Specimen cultured 01/25/23 Range/Units 14:40 WBC (4.5-11.0) X10^3/uL RBC (4.0-5.2) X10^6/uL Hgb (12.0-16.0) g/dL Hct (36-46) % MCV (80-100) fL MCH (26-34) PG MCHC (30-36) % RDW (11.6-14.8) % Plt Count (150-400) X10^3/uL Neut % (Auto) (50-75) % Lymph % (Auto) (25-40) % [place] % (Auto) (3-14) % Eos % (Auto) (2-4) % Baso % (Auto) (0-2) % Neut # (Auto) (3787-3183) /uL Lymph # (Auto) (0258-4720) /uL [place] # (Auto) (0-900) /uL Eos # (Auto) (0-450) /uL Baso # (Auto) (0-100) /uL Sodium (137-145) mmol/L Potassium (3.4-5.1) mmol/L Chloride (98-107) mmol/L Carbon Dioxide (22-32) mmol/L BUN (7-17) mg/dL Creatinine (0.52-1.04) mg/dL Estimated GFR (>60) mL/min BUN/Creatinine Ratio (6-22) Glucose (80-110) mg/dL Lactate 1.4 (0.7-2.1) mmol/L Calcium (8.4-10.2) mg/dL Total Bilirubin (0.2-1.3) mg/dL AST (14-36) IU/L ALT (<35) IU/L Alkaline Phosphatase (38-126) U/L Total Protein (6.3-8.2) g/dL Albumin (3.5-5.0) g/dL Globulin (1.7-4.1) g/dL Albumin/Globulin Ratio (1.0-2.8) Lipase (23-300) U/L Urine RBC (0-5/HPF) Urine WBC (0-5/HPF) Ur Squamous Epith Cells (0-5/HPF) Urine Bacteria (None) Ur Culture Indicated? Urine Dip Bedside Urine Glucose Negative Bedside Urine Bilirubin - Negative Bedside Urine Ketone - Negative Urine Specific [place] 1.025 Bedside Urine Occult Blood +++ Bedside Urine pH 5.5 Bedside Urine Protein + 30 Bedside Urine Urobilinogen - Negative Bedside Urine Nitrite + Positive Bedside Urine Leukocytes + 70 Esterase MDM Narrative Medical decision making narrative: 67-year-old female with past medical history sleep apnea, COPD, asthma, osteoporosis, GERD, Gonsales's esophagus, osteoarthritis presents to the ED with 1 day of right lower quadrant pain, right flank pain, nausea, vomiting, chills. Concern for UTI versus pyelonephritis versus nephrolithiasis versus ruptured AAA versus appendicitis versus other intra-abdominal pathology versus other. Will obtain labs, lactate, UA, CT abdomen pelvis. Will give Zofran, ketorolac for symptoms. CT abdomen pelvis shows the 3.7 x 4.2 cm infrarenal abdominal aortic aneurysm, which is minimally changed. There is a 3 mm obstructive stone at the right UVJ causing mild right hydronephrosis, which is being patient's symptoms today. Urologist Dr. Pelletier was consulted, he agrees to admit the patient for stenting. Patient's pain was well controlled with ketorolac and morphine. Patient did appear somewhat pale as she progressed through the ED stay, however vitals remained stable. Labs within normal limits. Lactate normal. Repeat labs ordered. Patient is admitted. <Gay Cameron, - Last Filed: 01/25/23 18:45> Lab Data Labs: Lab Results 01/25/23 01/25/23 01/25/23 Range/Units 13:20 14:40 14:40 WBC 8.6 (4.5-11.0) X10^3/uL RBC 4.51 (4.0-5.2) X10^6/uL Hgb 14.4 (12.0-16.0) g/dL Hct 42.1 (36-46) % MCV 93.3 (80-100) fL MCH 31.9 (26-34) PG MCHC 34.1 (30-36) % RDW 14.5 (11.6-14.8) % Plt Count 193 (150-400) X10^3/uL Neut % (Auto) 90.4 H (50-75) % Lymph % (Auto) 7.7 L (25-40) % [place] % (Auto) 1.4 L (3-14) % Eos % (Auto) 0.3 L (2-4) % Baso % (Auto) 0.2 (0-2) % Neut # (Auto) 7800 H (5443-3760) /uL Lymph # (Auto) 700 L (9735-1647) /uL [place] # (Auto) 100 (0-900) /uL Eos # (Auto) 0 (0-450) /uL Baso # (Auto) 0 (0-100) /uL Sodium 140 (137-145) mmol/L Potassium 4.2 (3.4-5.1) mmol/L Chloride 108 H (98-107) mmol/L Carbon Dioxide 25 (22-32) mmol/L BUN 14 (7-17) mg/dL Creatinine 0.83 (0.52-1.04) mg/dL Estimated GFR > 60 (>60) mL/min BUN/Creatinine Ratio 16.9 (6-22) Glucose 122 H (80-110) mg/dL Lactate (0.7-2.1) mmol/L Calcium 8.9 (8.4-10.2) mg/dL Total Bilirubin 1.3 (0.2-1.3) mg/dL AST 47 H (14-36) IU/L ALT 45 H (<35) IU/L Alkaline Phosphatase 85 (38-126) U/L Total Protein 7.2 (6.3-8.2) g/dL Albumin 4.3 (3.5-5.0) g/dL Globulin 2.9 (1.7-4.1) g/dL Albumin/Globulin Ratio 1.5 (1.0-2.8) Lipase 90 (23-300) U/L Urine RBC 10-30/hpf H (0-5/HPF) Urine WBC 10-30/hpf H (0-5/HPF) Ur Squamous Epith Cells 1-5 /hpf (0-5/HPF) Urine Bacteria Moderate (10-30) H (None) Ur Culture Indicated? Specimen cultured 01/25/23 Range/Units 14:40 WBC (4.5-11.0) X10^3/uL RBC (4.0-5.2) X10^6/uL Hgb (12.0-16.0) g/dL Hct (36-46) % MCV (80-100) fL MCH (26-34) PG MCHC (30-36) % RDW (11.6-14.8) % Plt Count (150-400) X10^3/uL Neut % (Auto) (50-75) % Lymph % (Auto) (25-40) % [place] % (Auto) (3-14) % Eos % (Auto) (2-4) % Baso % (Auto) (0-2) % Neut # (Auto) (8300-1369) /uL Lymph # (Auto) (5208-3579) /uL [place] # (Auto) (0-900) /uL Eos # (Auto) (0-450) /uL Baso # (Auto) (0-100) /uL Sodium (137-145) mmol/L Potassium (3.4-5.1) mmol/L Chloride (98-107) mmol/L Carbon Dioxide (22-32) mmol/L BUN (7-17) mg/dL Creatinine (0.52-1.04) mg/dL Estimated GFR (>60) mL/min BUN/Creatinine Ratio (6-22) Glucose (80-110) mg/dL Lactate 1.4 (0.7-2.1) mmol/L Calcium (8.4-10.2) mg/dL Total Bilirubin (0.2-1.3) mg/dL AST (14-36) IU/L ALT (<35) IU/L Alkaline Phosphatase (38-126) U/L Total Protein (6.3-8.2) g/dL Albumin (3.5-5.0) g/dL Globulin (1.7-4.1) g/dL Albumin/Globulin Ratio (1.0-2.8) Lipase (23-300) U/L Urine RBC (0-5/HPF) Urine WBC (0-5/HPF) Ur Squamous Epith Cells (0-5/HPF) Urine Bacteria (None) Ur Culture Indicated? Urine Dip Bedside Urine Glucose Negative Bedside Urine Bilirubin - Negative Bedside Urine Ketone - Negative Urine Specific [place] 1.025 Bedside Urine Occult Blood +++ Bedside Urine pH 5.5 Bedside Urine Protein + 30 Bedside Urine Urobilinogen - Negative Bedside Urine Nitrite + Positive Bedside Urine Leukocytes + 70 Esterase MDM Narrative Medical decision making narrative: 67-year-old female with past medical history sleep apnea, COPD, asthma, osteoporosis, GERD, Gonsales's esophagus, osteoarthritis presents to the ED with 1 day of right lower quadrant pain, right flank pain, nausea, vomiting, chills. Concern for UTI versus pyelonephritis versus nephrolithiasis versus ruptured AAA versus appendicitis versus other intra-abdominal pathology versus other. Will obtain labs, lactate, UA, CT abdomen pelvis. Will give Zofran, ketorolac for symptoms. CT abdomen pelvis shows the 3.7 x 4.2 cm infrarenal abdominal aortic aneurysm, which is minimally changed. There is a 3 mm obstructive stone at the right UVJ causing mild right hydronephrosis, which is being patient's symptoms today. Urologist Dr. Pelletier was consulted, he agrees to admit the patient for stenting. Patient's pain was well controlled with ketorolac and morphine. Patient did appear somewhat pale as she progressed through the ED stay, however vitals remained stable. Labs within normal limits. Lactate normal. Patient was seen and evaluated by myself as well. Patient's case was concerning as she is known AAA as well, CT abdomen pelvis shows minimal change, 3 mL obstructive stone. Patient has not been persistently hypotensive or tachycardic. She states started with flank pain wraps around to the front, some low-grade chills, nausea vomiting as well as dysuria urgency frequency. Patient had outpatient ultrasound which she shared the findings was 3.7 cm on ultrasound, priors CT shows about 4 cm for her aneurysm. Patient has a obstructive kidney stone with UTI does not meet septic criteria but case was discussed with Urology and plan for OR today. Repeat labs ordered. Patient is admitted. Discharge Plan Departure Patient Disposition: Admitted As Inpatient Clinical Impression: Right kidney stone Admit Date/Time: 01/25/23 17:38 Admit Provider: Fernando Pelletier
[2023-01-25] MEDS: KETOROLAC 30 MG/ML VIAL 15 MG IV (14:45)
[2023-01-25 14:49] LABS: Add Manual Diff / Slide Review NO; Basophils Absolute Auto 0 /uL (0-100); Basophils Percent Auto 0.2 % (0-2); Eosinophils Absolute Auto 0 /uL (0-450); Eosinophils Percent Auto 0.3 % (2-4); Hematocrit 42.1 % (36-46); Hemoglobin 14.4 g/dL (12.0-16.0); Lymphocytes Absolute Auto 700 /uL (1100-4500); Lymphocytes Percent Auto 7.7 % (25-40); Mean Corpuscular HGB Conc 34.1 % (30-36); Mean Corpuscular Hemoglobin 31.9 PG (26-34); Mean Corpuscular Volume 93.3 fL (80-100); Monocytes Absolute Auto 100 /uL (0-900); Monocytes Percent Auto 1.4 % (3-14); Neutrophils Absolute Auto 7800 /uL (1500-7000); Neutrophils Percent Auto 90.4 % (50-75); Platelet Count 193 X10^3/uL (150-400); Red Blood Cell Count 4.51 X10^6/uL (4.0-5.2); Red Cell Distribution Width 14.5 % (11.6-14.8); White Blood Cell Count 8.6 X10^3/uL (4.5-11.0)
[2023-01-25 14:55] LABS: Lactate (Lactic Acid) 1.4 mmol/L (0.7-2.1)
[2023-01-25 14:57] LABS: Alanine Aminotransferase 45 IU/L (<35); Albumin 4.3 g/dL (3.5-5.0); Albumin Globulin Ratio 1.5 (1.0-2.8); Alkaline Phosphatase 85 U/L (38-126); Aspartate Aminotransferase 47 IU/L (14-36); BUN Creatinine Ratio 16.9 (6-22); Bilirubin Total 1.3 mg/dL (0.2-1.3); Blood Urea Nitrogen 14 mg/dL (7-17); Calcium 8.9 mg/dL (8.4-10.2); Carbon Dioxide 25 mmol/L (22-32); Chloride 108 mmol/L (98-107); Estimated Glomerular Filt Rate > 60 mL/min (>60); Globulin 2.9 g/dL (1.7-4.1); Glucose 122 mg/dL (80-110); HEMOLYSIS < 15 (0-50); Lipase 90 U/L (23-300); Potassium 4.2 mmol/L (3.4-5.1); Sodium 140 mmol/L (137-145); Total Protein 7.2 g/dL (6.3-8.2)
--- NOTE | 2023-01-25 15:42 | DI.CT.S_ITS ---
PROCEDURE: CT ABDOMEN PELVIS W CON INDICATIONS: Abdominal, flank pain, hx AAA TECHNIQUE: After the administration of oral and IV contrast, axial sections were acquired from the lung bases to the pubic symphysis. Coronal and sagittal reformats were performed. For radiation dose reduction, the following was used: automated exposure control, adjustment of mA and/or kV according to patient size. COMPARISON: CT, CT CHEST WO CON, 03/16/2022, 12:04. [facility], CT, CT CHEST ABD PEL W CON, 10/06/2021, 11:58. Outside Facility, RG, CT ABDOMEN/PELVIS WITH CONTRAST, 03/18/2020, 10:50. FINDINGS: Image quality: Excellent. Lung bases: Moderate to severe emphysema.. Small hiatal hernia. Heart: Normal size. Moderate coronary artery calcification. ABDOMEN: Liver: Normal size. Moderate hepatic steatosis. Gallbladder: Unremarkable. Biliary ducts: Unremarkable. Pancreas: Unremarkable. Spleen: Unremarkable. Adrenal Glands: Unremarkable. Kidneys and Ureters: There is a 3 mm stone at the right ureterovesical junction. There is moderate right hydronephrosis and mild perinephric stranding. Mild right hydroureter is noted. No left renal stone or hydronephrosis.. Stomach and Bowel: Stomach, small bowel loops, and colon are normal in caliber. There are innumerable sigmoid diverticula. There is mild thickening of the sigmoid colon. Peritoneum: No abnormal intraperitoneal fluid. No free air. Ventral Wall: No hernia. Abdominal Nodes: No retroperitoneal or mesenteric adenopathy by size criteria. Vessels: Infrarenal abdominal aortic aneurysm measuring 3.7 x 4.2 cm, minimally since 03/18/2020. Moderate atherosclerotic calcifications. The inferior vena cava is normal in size. PELVIS: Pelvic Organs: Unremarkable. Bladder: Unremarkable. Pelvic Nodes: No enlarged lymph nodes. Miscellaneous: No inguinal hernias are seen. Bones: Unremarkable. IMPRESSION: 1. There is a 3 mm obstructive stone at the right ureterovesical junction causing mild right hydronephrosis. 2. Severe sigmoid diverticulosis. There is thickening of sigmoid colon, likely secondary to chronic diverticular disease. A differential diagnosis is segmental colitis. 3. Moderate hepatic steatosis. 4. A 3.7 x 4.2 cm infrarenal abdominal aortic aneurysm, minimally changed. 5. Moderate to severe emphysema. Dictated by: Rayne Antunez M.D. on 01/25/2023 at 16:57 Approved by: Rayne Antunez M.D. on 01/25/2023 at 17:15
--- NOTE | 2023-01-25 15:47 | PC.NURSE ---
patient reports significant right flank and abd pain. Declining anything stronger for pain at this time
--- NOTE | 2023-01-25 16:55 | PC.NURSE ---
Patient continues to express significant discomfort. Patient shaking, rapid shallow breathing and using her home inhaler. Patient color poor, cool to touch. Provider brought to bedside. Patient agreeable to small dose of pain medication. Patient moved to Room 8.
[2023-01-25] MEDS: MORPHINE 4 MG/ML INJ IV (16:57)
[2023-01-25] MEDS: ONDANSETRON 4 MG/2 ML INJ (16:57)
[2023-01-25] MEDS: SODIUM CHLORIDE 0.9% 1,000 ML 1000 ML IV (16:59)
--- NOTE | 2023-01-25 17:14 | PC.NURSE ---
Generalized abd discomfort upon exam
--- NOTE | 2023-01-25 17:34 | P.CONS_ITS ---
History of Present Illness Consult details Date Patient Seen: 01/25/23 Time Patient Seen: 17:34 Chief complaint: Vomiting, ABD pain Reason for consult: Urinary tract infection and ureteral stone Narrative: The patient is a 67-year-old female presenting to the [facility] ED with a 1 day complaint of right lower quadrant pain right flank pain nausea, vomiting, and chills. She also reports urinary frequency and urgency. Her pain on p resentation with associated nausea was 10/10. CT KUB demonstrates a 3-4 mm right distal ureteral calculus. Urinalysis demonstrates moderate bacteria, leukocytes, and is leukocyte esterase positive. WBC demonstrates left shift. Chest no previous history of active stone but states that she was told she had ?tiny? stone several months ago. Review of imaging study history indicates a finding of a nonobstructing 4 mm right upper pole calculus on CT imaging 10/06/2021. Meds Home Medications and Allergies Home Medications Medication Instructions Recorded Confirmed Type atenolol 25 mg tablet 12.5 mg PO DAILY 09/16/21 09/29/22 History atorvastatin 20 mg tablet 20 mg PO DAILY 09/16/21 09/29/22 History budesonide 160 mcg-glycopyr 9 2 inh inhalation BID 09/16/21 09/29/22 History mcg-formot 4.8 mcg/actuation HFA inhaler ([employer]) cetirizine 10 mg capsule (All Day 10 mg PO DAILY #60 caps 08/24/22 09/29/22 Rx Allergy (cetirizine)) benzonatate 100 mg capsule 100 mg PO TID PRN cough #30 caps 11/20/22 Rx Allergies Allergy/AdvReac Type Severity Reaction Status Date / Time Sulfa (Sulfonamide Allergy Unknown Hives Verified 11/20/22 13:14 Antibiotics) Review of Systems Review of Systems ROS: Yes All systems reviewed with the patient and are negative except as otherwise documented Exam Vital Signs (past 8 hours): - 01/25/23 13:14 01/25/23 15:40 01/25/23 17:03 Temperature 97.5 F L Pulse Rate 67 80 Respiratory Rate 18 Blood Pressure 108/67 153/66 H 151/77 H Pulse Oximetry 98 100 Oxygen Delivery Method Room Air Room Air 01/25/23 17:03 Temperature Pulse Rate 93 H Respiratory Rate 41 H Blood Pressure Pulse Oximetry Oxygen Delivery Method Oxygen Delivery Method Room Air Narrative Exam Narrative: Elderly woman in moderate distress but hemodynamically stable. Chest-equal and unlabored expansion bilaterally other than light crackles bilateral upper flores. Heart-regular rate and rhythm. Objective Labs 01/25/23 14:40 01/25/23 14:40 Labs: Laboratory Results - last 24 hr 01/25/23 01/25/23 01/25/23 13:20 14:40 14:40 WBC 8.6 RBC 4.51 Hgb 14.4 Hct 42.1 MCV 93.3 MCH 31.9 MCHC 34.1 RDW 14.5 Plt Count 193 Neut % (Auto) 90.4 H Lymph % (Auto) 7.7 L [place] % (Auto) 1.4 L Eos % (Auto) 0.3 L Baso % (Auto) 0.2 Neut # (Auto) 7800 H Lymph # (Auto) 700 L [place] # (Auto) 100 Eos # (Auto) 0 Baso # (Auto) 0 Sodium 140 Potassium 4.2 Chloride 108 H Carbon Dioxide 25 BUN 14 Creatinine 0.83 Estimated GFR > 60 BUN/Creatinine Ratio 16.9 Glucose 122 H Lactate Calcium 8.9 Total Bilirubin 1.3 AST 47 H ALT 45 H Alkaline Phosphatase 85 Total Protein 7.2 Albumin 4.3 Globulin 2.9 Albumin/Globulin Ratio 1.5 Lipase 90 Urine RBC 10-30/hpf H Urine WBC 10-30/hpf H Ur Squamous Epith Cells 1-5 /hpf Urine Bacteria Moderate (10-30) H Ur Culture Indicated? Specimen cultured 01/25/23 14:40 WBC RBC Hgb Hct MCV MCH MCHC RDW Plt Count Neut % (Auto) Lymph % (Auto) [place] % (Auto) Eos % (Auto) Baso % (Auto) Neut # (Auto) Lymph # (Auto) [place] # (Auto) Eos # (Auto) Baso # (Auto) Sodium Potassium Chloride Carbon Dioxide BUN Creatinine Estimated GFR BUN/Creatinine Ratio Glucose Lactate 1.4 Calcium Total Bilirubin AST ALT Alkaline Phosphatase Total Protein Albumin Globulin Albumin/Globulin Ratio Lipase Urine RBC Urine WBC Ur Squamous Epith Cells Urine Bacteria Ur Culture Indicated? [facility] Medical History Asthma (~2009) Gonsales's esophagus (~2019) Carpal tunnel syndrome (~1994) Chronic back pain (~2011) COPD (chronic obstructive pulmonary disease) (~2016) Diverticular disease (~2009) Gastric reflux (~2019) Gastric ulcer (~2019) Lung cancer (~2017) Osteoarthritis (~2014) Osteoporosis (~2014) Shoulder pain (~2018) Sleep apnea (~2018) Surgical History Anesthesia History of carotid endarterectomy (~2017) History of carpal tunnel release (~1994) History of hysterectomy (~2002) History of knee surgery (~2009) Status post lobectomy of lung (~2017) Family History Father History of heart disease Hypertension Hyperlipidemia Mother History of heart disease Alzheimer's disease Brother History of heart disease Grandmother Cancer Social History household members: spouse Tobacco & Substance Use Smoking Status: Former smoker alcohol intake: never Assessment & Plan Assessment & Plan narrative: Assessment: 1. Obstructing 3-4 mm right distal ureteral calculus. 2. UTI/right pyelonephritis. Plan: 1. Discussion, informed consent, and scheduling for immediate operative intervention-CYSTOSCOPY/RIGHT URETERAL STONE MANIPULATION WITHOUT REMOVAL/PLACEMENT RIGHT URETERAL STENT.
--- NOTE | 2023-01-25 17:37 | PC.NURSE ---
This RN's first interaction with patient. Pt was in fasttrack room until a treatment room was available.
[2023-01-25] MEDS: cefTRIAXone 1,000 MG in SODIUM CHLORIDE 0.9% 100 ML 200 MG IV (17:40)
--- NOTE | 2023-01-25 17:40 | PC.NURSE ---
Report given to Jani VACA for PACU
[2023-01-25 18:16] LABS: Hematocrit 41.3 % (36-46); Hemoglobin 14.3 g/dL (12.0-16.0); Mean Corpuscular HGB Conc 34.6 % (30-36); Mean Corpuscular Hemoglobin 32.3 PG (26-34); Mean Corpuscular Volume 93.4 fL (80-100); Platelet Count 120 X10^3/uL (150-400); Red Blood Cell Count 4.43 X10^6/uL (4.0-5.2); Red Cell Distribution Width 13.9 % (11.6-14.8)
[2023-01-25 18:23] LABS: Add Manual Diff / Slide Review YES
[2023-01-25] MEDS: GENTAMICIN 240 MG in SODIUM CHLORIDE 0.9% 100 ML 106 MG IV (18:41)
--- NOTE | 2023-01-25 18:45 | SUR.OPER ---
Lithotomy on padded OR bed, head on pillow, arms secured on padded arm boards at <90 degrees abduction. Legs secured in padded yellow fins stirrups.
--- NOTE | 2023-01-25 19:00 | P.OP_ITS ---
Operative Date/Time/Diagnoses Date of procedure: 01/25/23 Time of procedure: 19:00 Pre-op diagnosis: 1. Obstructing 3-4 mm right distal ureteral calculus. 2. UTI/right pyelonephritis. Post-op diagnosis: same Procedure & Clinicians Procedure: 1. Cystoscopy/right ureteral stone manipulation without removal. 2. Cystoscopy/placement right ureteral stent. Same procedure as scheduled: Yes Indications: 1. Obstructing 3-4 mm right distal ureteral calculus. 2. UTI/right pyelonephritis. Surgeon: Fernando Pelletier Click Yes if Unassisted: Yes Anesthesia Type: General Operative Notes Findings: Moderate atrophic vaginitis and grade 2-3 cystocele. Closure Type: not applicable Specimen(s): none sent Applied: other (Six Dominican by 22-32 cm multi-length stent.) Estimated Blood Loss (mL): 0 Blood products transfused: none Procedure in detail: The patient was positioned supine was administered general anesthesia. She was then repositioned in semilithotomy abdomen, genitalia and prepped and sterile 22 Dominican panendoscope passed the urinary findings as described above. A sponge stick with gauze was required to elevate the trigone and bladder floor for adequate visualization of the ureters normal position bilaterally. A 0.35 hybrid guidewire was then selected and advanced in the right collecting system and advanced proximally under direct and fluoroscopic guidance. Next, a 6 Dominican by 22-32 cm multi-length stent was selected and this was advanced over the hybrid guidewire, again under direct and fluoroscopic guidance. NO RETRIEVAL LINE WAS LEFT IN PLACE. The bladder was then drained completely and the gaspar endoscope was removed. The patient then repositioned supine, awakened, and transferred [facility] and in stable condition. Complications: none Post-operative Condition: stable Disposition: PACU Plan for aftercare: 1. Admit to acute care-hospitalist service. 2. Follow-up at [facility] post discharge to formulate next step plan for right ureteroscopic laser lithotripsy.
[2023-01-25] MEDS: LACTATED RINGERS 1,000 ML 21 ML IV ×2 (19:08→19:10)
[2023-01-25 19:09] LABS: Neutrophils Absolute Manual 1260 /uL (3000-5900); Total Cells Counted 100
[2023-01-25 19:10] LABS: RBC Morphology Normal Morphology
[2023-01-25] MEDS: LACTATED RINGERS 1,000 ML 42 ML IV (19:42)
[2023-01-25 21:03] LABS: White Blood Cell Count 1.8 X10^3/uL (4.5-11.0)
[2023-01-25] MEDS: LACTATED RINGERS 1,000 ML 75 ML IV (22:40)
--- NOTE | 2023-01-25 23:42 | P.HP_ITS ---
History of Present Illness History of Present Illness Date Patient Seen: 01/25/23 Time Patient Seen: 23:42 Chief complaint: Vomiting, ABD pain Narrative: The pt is a 67 yo with a hx of severe COPD s/p lobectomy and HTN who has been having lower back pain for the past 2 days but the pain became much more severe today and radiated to the anterior aspect of the abd and suprapubic area. She reports having nausea and vomiting today, chills, sweats, urinary urgency and frequency. The pt also states she has had kidney stones for several years. There has been no crampy abd pain, no change in bowel habits or constipation. CT scan done in the ER showed a 3 mm Rt UJP stone with right sided hydronephrosis, urology was notified and she was taken to the OR [facility] for a cystoscopy and stent placement. Post procedure, she was hypotensive even after 4 liters but she states she is like this frequently after surgery. [facility] Medical History Asthma (~2009) Gonsales's esophagus (~2019) Carpal tunnel syndrome (~1994) Chronic back pain (~2011) COPD (chronic obstructive pulmonary disease) (~2016) Diverticular disease (~2009) Gastric reflux (~2019) Gastric ulcer (~2019) Lung cancer (~2016) Osteoarthritis (~2014) Osteoporosis (~2014) Shoulder pain (~2018) Sleep apnea (~2018) Surgical History Anesthesia History of carotid endarterectomy (~2017) History of carpal tunnel release (~1994) History of hysterectomy (~2002) History of knee surgery (~2009) Status post lobectomy of lung (~2017) Family History Father History of heart disease Hypertension Hyperlipidemia Mother History of heart disease Alzheimer's disease Brother History of heart disease Grandmother Cancer Social History household members: spouse Smoking Status: Former smoker alcohol intake: never Meds Home Medications and Allergies Home Medications Medication Instructions Recorded Confirmed Type atenolol 25 mg tablet 12.5 mg PO DAILY 09/16/21 01/25/23 History atorvastatin 20 mg tablet 20 mg PO DAILY 09/16/21 01/25/23 History budesonide 160 mcg-glycopyr 9 2 inh inhalation BID 09/16/21 01/25/23 History mcg-formot 4.8 mcg/actuation HFA inhaler ([employer]) hydroxyzine HCl 50 mg tablet 50 mg PO BEDTIME 01/25/23 01/25/23 History Allergies Allergy/AdvReac Type Severity Reaction Status Date / Time Sulfa (Sulfonamide Allergy Unknown Hives Verified 11/20/22 13:14 Antibiotics) Exam Vital Signs (past 8 hours): - 01/25/23 17:03 01/25/23 17:03 01/25/23 17:30 Temperature Pulse Rate 93 H 101 H Respiratory Rate 41 H 43 H Blood Pressure 151/77 H Pulse Oximetry 93 Oxygen Delivery Method Oxygen Flow Rate 01/25/23 17:31 01/25/23 17:31 01/25/23 18:13 Temperature 99.1 F Pulse Rate 101 H 90 Respiratory Rate 35 H 22 Blood Pressure 129/56 L Pulse Oximetry 92 94 Oxygen Delivery Method Room Air Oxygen Flow Rate 01/25/23 19:03 01/25/23 19:05 01/25/23 19:07 Temperature 100.3 F H Pulse Rate 91 H 89 94 H Respiratory Rate 27 H 26 H 22 Blood Pressure 86/37 L 87/37 L 80/37 L Pulse Oximetry 95 95 95 Oxygen Delivery Method Room Air Room Air Room Air Oxygen Flow Rate 01/25/23 19:12 01/25/23 19:16 01/25/23 19:16 Temperature Pulse Rate 98 H 94 H 94 H Respiratory Rate 16 16 15 Blood Pressure 97/39 L 88/48 L 88/48 L Pulse Oximetry 94 94 94 Oxygen Delivery Method Room Air Room Air Room Air Oxygen Flow Rate 01/25/23 19:26 01/25/23 19:26 01/25/23 19:32 Temperature Pulse Rate 93 H 63 91 H Respiratory Rate 17 22 23 Blood Pressure 99/46 L 99/46 L 92/40 L Pulse Oximetry 96 94 95 Oxygen Delivery Method Room Air Room Air Room Air Oxygen Flow Rate 01/25/23 19:36 01/25/23 19:41 01/25/23 19:44 Temperature 99 F Pulse Rate 94 H 91 H 92 H Respiratory Rate 17 21 16 Blood Pressure 82/42 L 86/41 L 87/43 L Pulse Oximetry 95 95 95 Oxygen Delivery Method Room Air Room Air Room Air Oxygen Flow Rate 01/25/23 20:00 01/25/23 20:15 01/25/23 20:30 Temperature 99.0 F 98.2 F 98.1 F Pulse Rate 92 H 92 H 93 H Respiratory Rate 15 15 16 Blood Pressure 104/33 L 99/44 L 117/85 Pulse Oximetry 92 92 93 Oxygen Delivery Method Oxygen Flow Rate 0 0 0 01/25/23 20:45 01/25/23 21:00 01/25/23 21:15 Temperature 98.1 F 98.1 F Pulse Rate 97 H 90 91 H Respiratory Rate 16 15 15 Blood Pressure 108/45 L 108/45 L 101/49 L Pulse Oximetry 93 93 93 Oxygen Delivery Method Oxygen Flow Rate 0 0 0 01/25/23 22:50 01/25/23 21:45 01/25/23 22:00 Temperature Pulse Rate 94 H 94 H 94 H Respiratory Rate 15 15 15 Blood Pressure 94/45 L 103/43 L 86/30 L Pulse Oximetry 94 94 92 Oxygen Delivery Method Oxygen Flow Rate 0 0 0 01/25/23 22:15 01/25/23 22:30 01/25/23 22:45 Temperature Pulse Rate 95 H 99 H 98 H Respiratory Rate 17 17 17 Blood Pressure 99/49 L 94/42 L 95/35 L Pulse Oximetry 95 97 98 Oxygen Delivery Method Oxygen Flow Rate 0 0 0 01/25/23 23:00 Temperature 99.8 F H Pulse Rate 98 H Respiratory Rate 17 Blood Pressure 87/26 L Pulse Oximetry 97 Oxygen Delivery Method Oxygen Flow Rate 0 Oxygen Delivery Method Room Air Oxygen Flow Rate 0 Const General: cooperative and comfortable Orientation: alert, awake and oriented x3 Resp Auscultation: clear to auscultation bilaterally Cardio Rate: regular rate Rhythm: regular rhythm GI Palpation: soft Auscultation: normal bowel sounds Objective Labs 01/25/23 17:55 01/25/23 14:40 Labs: Laboratory Results - last 24 hr 01/25/23 01/25/23 01/25/23 13:20 14:40 14:40 WBC 8.6 RBC 4.51 Hgb 14.4 Hct 42.1 MCV 93.3 MCH 31.9 MCHC 34.1 RDW 14.5 Plt Count 193 Neut % (Auto) 90.4 H Lymph % (Auto) 7.7 L [place] % (Auto) 1.4 L Eos % (Auto) 0.3 L Baso % (Auto) 0.2 Neut # (Auto) 7800 H Lymph # (Auto) 700 L [place] # (Auto) 100 Eos # (Auto) 0 Baso # (Auto) 0 Total Counted Seg Neutrophils % Band Neutrophils % Lymphocytes % (Manual) Monocytes % (Manual) Neutrophils # (Manual) Plt Morphology Comment RBC Morphology Sodium 140 Potassium 4.2 Chloride 108 H Carbon Dioxide 25 BUN 14 Creatinine 0.83 Estimated GFR > 60 BUN/Creatinine Ratio 16.9 Glucose 122 H Lactate Calcium 8.9 Total Bilirubin 1.3 AST 47 H ALT 45 H Alkaline Phosphatase 85 Total Protein 7.2 Albumin 4.3 Globulin 2.9 Albumin/Globulin Ratio 1.5 Lipase 90 Urine RBC 10-30/hpf H Urine WBC 10-30/hpf H Ur Squamous Epith Cells 1-5 /hpf Urine Bacteria Moderate (10-30) H Ur Culture Indicated? Specimen cultured Blood Type Antibody Screen 01/25/23 01/25/23 01/25/23 14:40 17:55 17:55 WBC 1.8 L* D RBC 4.43 Hgb 14.3 Hct 41.3 MCV 93.4 MCH 32.3 MCHC 34.6 RDW 13.9 Plt Count 120 L Neut % (Auto) Not Reportable Lymph % (Auto) Not Reportable [place] % (Auto) Not Reportable Eos % (Auto) Not Reportable Baso % (Auto) Not Reportable Neut # (Auto) Lymph # (Auto) Not Reportable [place] # (Auto) Not Reportable Eos # (Auto) Baso # (Auto) Not Reportable Total Counted 100 Seg Neutrophils % 52.0 Band Neutrophils % 18.0 H Lymphocytes % (Manual) 26.0 Monocytes % (Manual) 4.0 Neutrophils # (Manual) 1260 L Plt Morphology Comment RBC Morphology Normal morphology Sodium Potassium Chloride Carbon Dioxide BUN Creatinine Estimated GFR BUN/Creatinine Ratio Glucose Lactate 1.4 Calcium Total Bilirubin AST ALT Alkaline Phosphatase Total Protein Albumin Globulin Albumin/Globulin Ratio Lipase Urine RBC Urine WBC Ur Squamous Epith Cells Urine Bacteria Ur Culture Indicated? Blood Type B Negative Antibody Screen Negative Assessment & Plan Assessment and plan (1) Right kidney stone: Status: Acute (2) Hydronephrosis: Status: Acute (3) UTI (urinary tract infection): Status: Acute (4) COPD (chronic obstructive pulmonary disease): Status: Acute (5) Gastric reflux: Status: Acute (6) Diverticular disease: Status: Acute Plan Will admit the pt to the hospitalist service, started heidi pt on zosyn ( received gentamycin in the OR), antiemetics and pain meds ordered PRN. Breathing tx & albuterol prn ordered due to her COPD. currently on room air, hypotensive but asymptomatic at this time, continue on IVF of NS at 125cc/hr, repeat labs in am, urine culture pending, The pt will f/up with urology as an outpt for possible lithotripsy.
[2023-01-26] VITALS (45 sets, daily range): BP systolic 87–134; BP diastolic 28–62; PULSE 78–97; RESP 16–43; TEMP 36.3–37.1; O2SAT 61–100
[2023-01-26] MEDS: PIPERACILLIN/TAZO 3.375 GM in SODIUM CHLORIDE 0.9% 100 ML IV ×4 (00:07→23:41)
[2023-01-26] MEDS: SODIUM CHLORIDE 0.9% 1,000 ML 125 ML IV ×3 (00:07→17:16)
[2023-01-26] MEDS: ALBUTEROL 1.25 MG/3 ML NEB (PEDIATRIC) INH (00:16)
[2023-01-26] MEDS: ACETAMINOPHEN 325 MG TABLET 650 MG PO (02:26)
[2023-01-26] MEDS: IBUPROFEN 600 MG TABLET PO (02:27)
[2023-01-26 04:59] LABS: MRSA (Nasal) PCR Not Detected (Not Detect)
[2023-01-26] MEDS: HYDROCODONE/ACET 5/325 TABLET 1 TAB PO (05:09)
[2023-01-26 05:23] LABS: Add Manual Diff / Slide Review NO; Basophils Absolute Auto 0 /uL (0-100); Basophils Percent Auto 0.1 % (0-2); Eosinophils Absolute Auto 0 /uL (0-450); Hematocrit 37.2 % (36-46); Hemoglobin 12.6 g/dL (12.0-16.0); Lymphocytes Absolute Auto 800 /uL (1100-4500); Lymphocytes Percent Auto 4.5 % (25-40); Mean Corpuscular HGB Conc 33.8 % (30-36); Mean Corpuscular Hemoglobin 31.9 PG (26-34); Mean Corpuscular Volume 94.4 fL (80-100); Monocytes Absolute Auto 900 /uL (0-900); Monocytes Percent Auto 5.1 % (3-14); Neutrophils Absolute Auto 15200 /uL (1500-7000); Neutrophils Percent Auto 90.3 % (50-75); Platelet Count 133 X10^3/uL (150-400); Red Blood Cell Count 3.94 X10^6/uL (4.0-5.2); Red Cell Distribution Width 14.7 % (11.6-14.8)
[2023-01-26 05:42] LABS: White Blood Cell Count 16.8 X10^3/uL (4.5-11.0)
[2023-01-26 06:01] LABS: BUN Creatinine Ratio 13.7 (6-22); Blood Urea Nitrogen 13 mg/dL (7-17); Calcium 7.9 mg/dL (8.4-10.2); Carbon Dioxide 23 mmol/L (22-32); Chloride 110 mmol/L (98-107); Estimated Glomerular Filt Rate > 60 mL/min (>60); Glucose 153 mg/dL (80-110); HEMOLYSIS < 15 (0-50); Potassium 3.9 mmol/L (3.4-5.1); Sodium 141 mmol/L (137-145)
[2023-01-26 06:08] LABS: CTX-M Resistance Not Detected (Not Detect); Enterococcus faecalis Not Detected (Not Detect); Enterococcus faecium Not Detected (Not Detect); IMP Resistance Not Detected (Not Detect); KPC Resistance Not Detected (Not Detect); Listeria monocytogenes Not Detected (Not Detect); NDM Resistance Not Detected (Not Detect); OXA-48-like Resistance Not Detected (Not Detect); Staphylococcus species Not Detected (Not Detect); VIM Resistance Not Detected (Not Detect)
[2023-01-26] MEDS: PANTOPRAZOLE DR 20 MG TABLET PO (06:08)
[2023-01-26 06:09] LABS: Acinetobacter calcoa-baumannii Not Detected (Not Detect); Bacteroides fragilis Not Detected (Not Detect); Candida albicans Not Detected (Not Detect); Candida auris Not Detected (Not Detect); Candida glabrata Not Detected (Not Detect); Candida krusei Not Detected (Not Detect); Candida parapsilosis Not Detected (Not Detect); Candida tropicalis Not Detected (Not Detect); Cryptococcus neoformans/gatti Not Detected (Not Detect); Enterobacter cloacae complex Not Detected (Not Detect); Enterobacterales DETECTED (Not Detect); Haemophilus influenzae Not Detected (Not Detect); Klebsiella aerogenes Not Detected (Not Detect); Neisseria meningitidis Not Detected (Not Detect); Proteus species Not Detected (Not Detect); Pseudomonas aeruginosa Not Detected (Not Detect); Salmonella species Not Detected (Not Detect); Serratia marcescens Not Detected (Not Detect); Staphylococcus epidermidis Not Detected (Not Detect); Staphylococcus lugdunensis Not Detected (Not Detect); Stenotrophomonas maltophilia Not Detected (Not Detect); Streptococcus agalactiae (Gr B Not Detected (Not Detect); Streptococcus pneumonia Not Detected (Not Detect); Streptococcus pyogenes (Gr A) Not Detected (Not Detect); Streptococcus species Not Detected (Not Detect)
[2023-01-26] MEDS: ALBUTEROL/IPRATROPIUM 3 ML AMPUL INH (07:09)
[2023-01-26] MEDS: ATORVASTATIN 20 MG TABLET PO (08:09)
[2023-01-26] MEDS: ENOXAPARIN 40 MG/0.4 ML SYRINGE SUBCUT (08:09)
[2023-01-26] MEDS: BUTALB/APAP/CAFFEINE 50/325/40 TABLET 1 EACH PO ×2 (10:29→20:48)
[2023-01-26] MEDS: PHENAZOPYRIDINE 100 MG TABLET PO ×3 (10:29→20:47)
[2023-01-26] MEDS: FLUCONAZOLE 100 MG TABLET 150 MG PO (10:29)
--- NOTE | 2023-01-26 13:46 | CM.DANOTE ---
Initial DCP Assessment Note: Pt is a 67-year old woman who presented to the ER with 1-day of lower right quadrant pain, nausea, vomiting, chills, and urinary urgency/frequency. She describes her pain as 10/10. CT imaging demonstrates a small kidney stone causing mild right hydronephrosis, and plan is for stent placement 01/[address] Fan. Payor: [facility] PCP: Dr. Irma Michele BEHAVIORAL GENETICIST reviewed EMR and medical status. Met with pt/spouse at bedside to introduce self and role. Pt found to be wincing, expressing continued acute pain. She shares that she did have the stent placement today, however due to sepsis, she will need antibiotics and resolution of the infection before a second surgery can be done approx. 2-weeks from now. Plan is for pt to f/u with Dr. Fan/Urology outpatient for f/u and scheduling of surgery. Pt denies any further needs at this time, will plan to care for her once she is d/c'd home, no in-home resource needs are identified at this time. DCP to continue to monitor and follow as d/c care plan is developed. Discharge Planning/Care Management CM Discharge Assessment Start: 01/26/23 13:41 Freq: Status: Active Protocol: Document 01/26/23 13:41 DPL (Rec: 01/26/23 13:46 DPL [id number]) Discharge Planning Assessment Assigned Curing Room Supervisor THOMAS Hernandez Advance Directives? No History Provided By Patient Expected Length of Stay 3 Has Patient been admitted in last 30 No days? Prior Living Arrangements House Comment Lives independently w/spouse in her own home. Household Members spouse Type of transporation used prior to Drives own vehicle admit Independent with ADL's Yes Is patient alert and oriented? Yes Comment N/A Caregiver for Another No Comment N/A Comment None anticipated. Barriers to Discharge No Discharge Plan Home Referrals Initiated None needed Additional Comment Pt is requesting assistance with making her f/u appt. w/ Urology prior to d/c. Review Status In Process Please Provide Date Initial DC 01/26/23 Assessment Was Performed
--- NOTE | 2023-01-26 14:14 | PM.PN.1 ---
Subjective Subjective Interval history: The pt is a 67 yo with a hx of severe COPD s/p lobectomy and HTN who was admitted with obstructive uropathy, now found to have gram negative bacteremia due to urinary infection in the setting of her obstruction. She feels much improved today, a bit weak but has chronic back pain and resolution of her presenting symptoms. She is tolerating a diet today without nausea or vomiting. Exam Vital Signs (past 8 hours): - 01/26/23 07:16 01/26/23 06:30 01/26/23 06:30 Pulse Rate 87 84 Respiratory Rate 16 20 Blood Pressure 105/56 L Pulse Oximetry 94 94 Oxygen Delivery Method Room Air 01/26/23 07:00 01/26/23 07:00 01/26/23 07:30 Pulse Rate 82 Respiratory Rate 21 Blood Pressure 118/55 L 118/57 L Pulse Oximetry 94 Oxygen Delivery Method 01/26/23 07:30 01/26/23 08:00 01/26/23 08:00 Pulse Rate 86 90 Respiratory Rate 18 19 Blood Pressure 99/51 L Pulse Oximetry 94 94 Oxygen Delivery Method 01/26/23 07:00 01/26/23 10:00 01/26/23 08:30 Pulse Rate 89 Respiratory Rate 36 H Blood Pressure Pulse Oximetry 94 94 Oxygen Delivery Method Room Air Room Air 01/26/23 08:31 01/26/23 08:31 01/26/23 08:32 Pulse Rate 91 H 91 H Respiratory Rate 36 H 38 H Blood Pressure 126/57 L Pulse Oximetry 94 94 Oxygen Delivery Method 01/26/23 08:32 01/26/23 09:00 01/26/23 09:16 Pulse Rate 88 Respiratory Rate 23 Blood Pressure 132/57 L 131/59 L Pulse Oximetry 95 Oxygen Delivery Method 01/26/23 09:16 01/26/23 09:30 01/26/23 10:00 Pulse Rate 87 86 82 Respiratory Rate 27 H 29 H 22 Blood Pressure Pulse Oximetry 95 95 95 Oxygen Delivery Method 01/26/23 10:30 01/26/23 11:00 01/26/23 11:30 Pulse Rate 86 83 78 Respiratory Rate 28 H 25 H 19 Blood Pressure Pulse Oximetry 95 Oxygen Delivery Method 01/26/23 12:00 01/26/23 12:30 01/26/23 12:36 Pulse Rate 88 87 Respiratory Rate 29 H 32 H Blood Pressure 118/58 L Pulse Oximetry 96 Oxygen Delivery Method 01/26/23 12:36 01/26/23 12:44 01/26/23 12:44 Pulse Rate 86 93 H Respiratory Rate 35 H 36 H Blood Pressure 113/55 L Pulse Oximetry 95 91 Oxygen Delivery Method 01/26/23 13:00 01/26/23 13:00 01/26/23 13:02 Pulse Rate 81 82 Respiratory Rate 29 H 25 H Blood Pressure 117/54 L Pulse Oximetry 95 96 Oxygen Delivery Method 01/26/23 13:02 Pulse Rate Respiratory Rate Blood Pressure 116/59 L Pulse Oximetry Oxygen Delivery Method Oxygen Delivery Method Room Air Oxygen Flow Rate 0 Narrative Exam Narrative: Gen: No acute distress CV: RRR no mr/g Pulm: CTA b/l Abd: S NT ND Ext; No edema Objective Labs 01/26/23 04:50 01/26/23 04:50 Labs: Laboratory Results - last 24 hr 01/25/23 01/25/23 01/25/23 14:40 14:40 14:40 WBC 8.6 RBC 4.51 Hgb 14.4 Hct 42.1 MCV 93.3 MCH 31.9 MCHC 34.1 RDW 14.5 Plt Count 193 Neut % (Auto) 90.4 H Lymph % (Auto) 7.7 L [place] % (Auto) 1.4 L Eos % (Auto) 0.3 L Baso % (Auto) 0.2 Neut # (Auto) 7800 H Lymph # (Auto) 700 L [place] # (Auto) 100 Eos # (Auto) 0 Baso # (Auto) 0 Total Counted Seg Neutrophils % Band Neutrophils % Lymphocytes % (Manual) Monocytes % (Manual) Neutrophils # (Manual) Plt Morphology Comment RBC Morphology Sodium 140 Potassium 4.2 Chloride 108 H Carbon Dioxide 25 BUN 14 Creatinine 0.83 Estimated GFR > 60 BUN/Creatinine Ratio 16.9 Glucose 122 H Lactate 1.4 Calcium 8.9 Total Bilirubin 1.3 AST 47 H ALT 45 H Alkaline Phosphatase 85 Total Protein 7.2 Albumin 4.3 Globulin 2.9 Albumin/Globulin Ratio 1.5 Lipase 90 Nasal Screen MRSA (PCR) A.calcoaceticus-baumannii cmplx PCR Bacteroides fragilis Sonia albicans (PCR) Sonia auris (PCR) C. glabrata (PCR) C. krusei (PCR) C. parapsilosis (PCR) C. tropicalis (PCR) C. neoform/gattii (PCR) Enterobacterales (PCR) E. cloacae complex PCR Enterococc faecalis PCR Enterococc faecium PCR E. coli (PCR) H. influenzae (PCR) Klebsiella aerogenes (PCR) Klebsiella oxytoca PCR Klebsiella pneumoniae List. monocytogenes PCR N. meningitidis (PCR) Proteus species (PCR) Salmonella spp. (PCR) Serratia marcescens PCR Staphylococcus sp PCR Staph aureus (PCR) Staph epidermidis (PCR) Staph lugdunensis PCR S. maltophilia (PCR) Streptococcus sp PCR Group A Strep (PCR) Strep agalactiae (PCR) Strep pneumoniae (PCR) P. aeruginosa (PCR) blaIMP Car res Gene PCR KPC-Carbap Res Gene PCR blaNDM Car Res Gene PCR OXA-48 Carbapenem Resis Gene (PCR) blaVIM Car Res Gene PCR CTX-M Gene Resistance (PCR) Blood Type Antibody Screen 01/25/23 01/25/23 01/26/23 17:55 17:55 02:16 WBC 1.8 L* D RBC 4.43 Hgb 14.3 Hct 41.3 MCV 93.4 MCH 32.3 MCHC 34.6 RDW 13.9 Plt Count 120 L Neut % (Auto) Not Reportable Lymph % (Auto) Not Reportable [place] % (Auto) Not Reportable Eos % (Auto) Not Reportable Baso % (Auto) Not Reportable Neut # (Auto) Lymph # (Auto) Not Reportable [place] # (Auto) Not Reportable Eos # (Auto) Baso # (Auto) Not Reportable Total Counted 100 Seg Neutrophils % 52.0 Band Neutrophils % 18.0 H Lymphocytes % (Manual) 26.0 Monocytes % (Manual) 4.0 Neutrophils # (Manual) 1260 L Plt Morphology Comment RBC Morphology Normal morphology Sodium Potassium Chloride Carbon Dioxide BUN Creatinine Estimated GFR BUN/Creatinine Ratio Glucose Lactate Calcium Total Bilirubin AST ALT Alkaline Phosphatase Total Protein Albumin Globulin Albumin/Globulin Ratio Lipase Nasal Screen MRSA (PCR) Not detected A.calcoaceticus-baumannii cmplx PCR Bacteroides fragilis Sonia albicans (PCR) Sonia auris (PCR) C. glabrata (PCR) C. krusei (PCR) C. parapsilosis (PCR) C. tropicalis (PCR) C. neoform/gattii (PCR) Enterobacterales (PCR) E. cloacae complex PCR Enterococc faecalis PCR Enterococc faecium PCR E. coli (PCR) H. influenzae (PCR) Klebsiella aerogenes (PCR) Klebsiella oxytoca PCR Klebsiella pneumoniae List. monocytogenes PCR N. meningitidis (PCR) Proteus species (PCR) Salmonella spp. (PCR) Serratia marcescens PCR Staphylococcus sp PCR Staph aureus (PCR) Staph epidermidis (PCR) Staph lugdunensis PCR S. maltophilia (PCR) Streptococcus sp PCR Group A Strep (PCR) Strep agalactiae (PCR) Strep pneumoniae (PCR) P. aeruginosa (PCR) blaIMP Car res Gene PCR KPC-Carbap Res Gene PCR blaNDM Car Res Gene PCR OXA-48 Carbapenem Resis Gene (PCR) blaVIM Car Res Gene PCR CTX-M Gene Resistance (PCR) Blood Type B Negative Antibody Screen Negative 01/26/23 01/26/23 01/26/23 04:50 04:50 04:56 WBC 16.8 H D RBC 3.94 L Hgb 12.6 Hct 37.2 MCV 94.4 MCH 31.9 MCHC 33.8 RDW 14.7 Plt Count 133 L Neut % (Auto) 90.3 H Lymph % (Auto) 4.5 L [place] % (Auto) 5.1 Eos % (Auto) 0.0 L Baso % (Auto) 0.1 Neut # (Auto) 30708 H Lymph # (Auto) 800 L [place] # (Auto) 900 Eos # (Auto) 0 Baso # (Auto) 0 Total Counted Seg Neutrophils % Band Neutrophils % Lymphocytes % (Manual) Monocytes % (Manual) Neutrophils # (Manual) Plt Morphology Comment RBC Morphology Sodium 141 Potassium 3.9 Chloride 110 H Carbon Dioxide 23 BUN 13 Creatinine 0.95 Estimated GFR > 60 BUN/Creatinine Ratio 13.7 Glucose 153 H Lactate Calcium 7.9 L Total Bilirubin AST ALT Alkaline Phosphatase Total Protein Albumin Globulin Albumin/Globulin Ratio Lipase Nasal Screen MRSA (PCR) A.calcoaceticus-baumannii cmplx PCR Not detected Bacteroides fragilis Not detected Sonia albicans (PCR) Not detected Sonia auris (PCR) Not detected C. glabrata (PCR) Not detected C. krusei (PCR) Not detected C. parapsilosis (PCR) Not detected C. tropicalis (PCR) Not detected C. neoform/gattii (PCR) Not detected Enterobacterales (PCR) Detected H E. cloacae complex PCR Not detected Enterococc faecalis PCR Not detected Enterococc faecium PCR Not detected E. coli (PCR) Not detected H. influenzae (PCR) Not detected Klebsiella aerogenes (PCR) Not detected Klebsiella oxytoca PCR Not detected Klebsiella pneumoniae Not detected List. monocytogenes PCR Not detected N. meningitidis (PCR) Not detected Proteus species (PCR) Not detected Salmonella spp. (PCR) Not detected Serratia marcescens PCR Not detected Staphylococcus sp PCR Not detected Staph aureus (PCR) Not detected Staph epidermidis (PCR) Not detected Staph lugdunensis PCR Not detected S. maltophilia (PCR) Not detected Streptococcus sp PCR Not detected Group A Strep (PCR) Not detected Strep agalactiae (PCR) Not detected Strep pneumoniae (PCR) Not detected P. aeruginosa (PCR) Not detected blaIMP Car res Gene PCR Not detected KPC-Carbap Res Gene PCR Not detected blaNDM Car Res Gene PCR Not detected OXA-48 Carbapenem Resis Gene (PCR) Not detected blaVIM Car Res Gene PCR Not detected CTX-M Gene Resistance (PCR) Not detected Blood Type Antibody Screen [facility] Medical History Asthma (~2009) Gonsales's esophagus (~2019) Carpal tunnel syndrome (~1994) Chronic back pain (~2011) COPD (chronic obstructive pulmonary disease) (~2016) Diverticular disease (~2009) Gastric reflux (~2019) Gastric ulcer (~2019) Lung cancer (~2016) Osteoarthritis (~2014) Osteoporosis (~2014) Shoulder pain (~2018) Sleep apnea (~2018) Surgical History Anesthesia History of carotid endarterectomy (~2017) History of carpal tunnel release (~1994) History of hysterectomy (~2002) History of knee surgery (~2009) Status post lobectomy of lung (~2017) Family History Father History of heart disease Hypertension Hyperlipidemia Mother History of heart disease Alzheimer's disease Brother History of heart disease Grandmother Cancer Social History household members: spouse Smoking Status: Former smoker alcohol intake: never Assessment & Plan Assessment & Plan narrative: 1. Sepsis with hypotension, thrombocytopenia, and hyperbilirubinemia secondary to gram negative bacteremia in the setting of #2 below - continue zosyn for antibiotics pending blood and urine culture results - now s/p stent placement with urology, no clemente catheter placed. Outpatient follow up with urology recommended for further management. - appreciate urology consultation - continue to follow leukocytosis and renal function with cbc and bmp 2. Acute cystitis / bacteremia secondary to R nephrolithiasis with R ureteral obstruction / hydronephrosis. - continue zosyn as noted above, treatment with 10 -14 days of antibiotic therapy given bacteremia with stent placement, will hope to transition to oral once cultures finalize. 3. COPD with prior lobectomy, without exacerbation - patient to bring in home breztri for continued maintenance therapy - albuterol prn to continue as needed for wheezing or shortness of breath. 4. HLD, chronic - continue home statin 5. HTN, chronic - hold home atenolol for now given presenting sepsis with hypotensino. Code: Full, surrogate is patient's spouse DVT: Lovenox daily Dispo: can downgrade from ICU to floor, hemodynamically improved with no hypotension today, no pressor needs. Will be inpatient. Anticipate discharge home in the next 2-3 days. I spent 30 minutes providing critical care management this patient. This excludes time spent in performing separately billed procedures. Scores SOFA PaO2/FIO2: >=400 mmHg Platelets: < 150 Bilirubin: 1.2-1.9 mg/dL Hypotension: MAP < 70 mmHg Andres Coma Scale: 15 Renal: < 1.2 mg/dL SOFA Score: 3
--- NOTE | 2023-01-26 14:16 | PC.NURSE ---
Addendum entered by Izabela Penny R.N. 01/26/23 18:54: Pt BP continues to be stable, pt complaining of vaginal itching without vaginal drainage - provider notified. Pt became tachypneic around 1800, RT called to eval and treat per order. Original Note: Pt BP stable today with systolics over 110 and MAPs >65 without vasopressors. Atenolol held per provider in am due to hypotensive overnight. Pt a little light-headed with standing and ambulation but was not orthostatic. In AM pt complained about headache, provider ordered a migraine medication which resolved the headache.
[2023-01-26] MEDS: VENTOLIN 2 EACH INH (15:13)
[2023-01-26] MEDS: ALBUTEROL 2.5 MG/3 ML NEB (ADULT) INH (18:32)
[2023-01-26] MEDS: FORMOTEROL INH (19:56)
[2023-01-26] MEDS: GLYCOPYRROLATE INH (19:56)
[2023-01-26] MEDS: [UNRECOGNIZED DRUG - OTHER] INH (19:56)
[2023-01-26] MEDS: BUDESONIDE INH (19:56)
[2023-01-26] MEDS: SENNOSIDES 8.6 MG TABLET 17.2 MG PO (20:48)
[2023-01-26] MEDS: hydrOXYzine pamoate 25 MG CAPSULE 50 MG PO (20:48)
[2023-01-27] VITALS (31 sets, daily range): BP systolic 149–179; BP diastolic 68–98; PULSE 77–100; RESP 16–48; TEMP 36.1–36.6; O2SAT 88–96
[2023-01-27] MEDS: SODIUM CHLORIDE 0.9% 1,000 ML 125 ML IV (01:55)
[2023-01-27] MEDS: ALBUTEROL 2.5 MG/3 ML NEB (ADULT) INH ×4 (02:49→18:05)
[2023-01-27 04:47] LABS: Add Manual Diff / Slide Review NO; Basophils Absolute Auto 0 /uL (0-100); Eosinophils Absolute Auto 0 /uL (0-450); Hematocrit 35.9 % (36-46); Hemoglobin 12.1 g/dL (12.0-16.0); Lymphocytes Absolute Auto 1000 /uL (1100-4500); Lymphocytes Percent Auto 5.5 % (25-40); Mean Corpuscular HGB Conc 33.7 % (30-36); Mean Corpuscular Hemoglobin 31.8 PG (26-34); Mean Corpuscular Volume 94.1 fL (80-100); Monocytes Absolute Auto 800 /uL (0-900); Monocytes Percent Auto 4.7 % (3-14); Neutrophils Absolute Auto 16100 /uL (1500-7000); Neutrophils Percent Auto 89.8 % (50-75); Platelet Count 133 X10^3/uL (150-400); Red Blood Cell Count 3.81 X10^6/uL (4.0-5.2); Red Cell Distribution Width 14.9 % (11.6-14.8); White Blood Cell Count 17.9 X10^3/uL (4.5-11.0)
[2023-01-27 05:00] LABS: BUN Creatinine Ratio 18.2 (6-22); Blood Urea Nitrogen 16 mg/dL (7-17); Calcium 7.5 mg/dL (8.4-10.2); Carbon Dioxide 19 mmol/L (22-32); Chloride 117 mmol/L (98-107); Estimated Glomerular Filt Rate > 60 mL/min (>60); Glucose 150 mg/dL (80-110); HEMOLYSIS < 15 (0-50); Potassium 3.8 mmol/L (3.4-5.1); Sodium 145 mmol/L (137-145)
[2023-01-27] MEDS: [UNRECOGNIZED DRUG - OTHER] INH ×2 (08:19→20:14)
[2023-01-27] MEDS: FORMOTEROL INH ×2 (08:19→20:14)
[2023-01-27] MEDS: BUDESONIDE INH ×2 (08:19→20:14)
[2023-01-27] MEDS: GLYCOPYRROLATE INH ×2 (08:19→20:14)
[2023-01-27] MEDS: cefTRIAXone 2,000 MG in SODIUM CHLORIDE 0.9% 100 ML 200 MG IV (08:52)
[2023-01-27] MEDS: atenoloL 25 MG TABLET 12.5 MG PO (08:53)
[2023-01-27] MEDS: PHENAZOPYRIDINE 100 MG TABLET PO ×3 (08:55→20:24)
[2023-01-27] MEDS: ATORVASTATIN 20 MG TABLET PO (08:55)
--- NOTE | 2023-01-27 11:18 | DI.RAD.S_ITS ---
PROCEDURE: XR CHEST 1V INDICATIONS: hemoptysis TECHNIQUE: One view of the chest was acquired. COMPARISON: [facility], CR, XR CHEST 2V, 11/20/2022, 13:11. FINDINGS: Surgical changes and devices: None. Lungs and pleura: Lung volumes are low. Increase, [id number] diffuse lung disease. No pleural effusions identified. Mediastinum: Heart size within normal limits. Bones and chest wall: Unremarkable IMPRESSION: Increased, [id number] diffuse lung disease representing infection/inflammation. A component of alveolar hemorrhage is possible given reported hemoptysis. Consider future imaging surveillance to assess for resolution. Dictated by: Jason Carmichael M.D. on 01/27/2023 at 11:54 Approved by: Jason Carmichael M.D. on 01/27/2023 at 11:55
--- NOTE | 2023-01-27 14:13 | PC.NURSE ---
Pt c/o SOB after waking. Oxygenation 85%-88% on RA. Pt declining nasal cannula, stating, It's making me worse. Humidification added to oxygen, pt still declining. Pt tachypneic with small hemoptysis into a tissue. Crackles in lungs bilaterally with +1 general edema with +2 in BLE. Fluids stopped. Pt able to recover, saturation 92% on RA. Provider notified. Sputum obtained. Pt able to ambulate to BR without tachypneia recurrence. Care ongoing, will continue to monitor.
--- NOTE | 2023-01-27 14:47 | PM.PN.1 ---
Subjective Subjective Interval history: The pt is a 67 yo with a hx of severe COPD s/p lobectomy and HTN who was admitted with obstructive uropathy, now found to have E. coli bacteremia due to urinary infection in the setting of her obstruction. She feels horrible today, complains of diffuse swelling, shortness of breath, required O2 overnight but is peeing a lot this morning and feels better now. She also developed some hemoptysis today and some sputum production. Chest xray with diffuse lung disease but no focal infiltrates, most likely pulmonary edema in this setting. Exam Vital Signs (past 8 hours): - 01/27/23 08:12 01/27/23 08:19 01/27/23 08:30 Temperature Pulse Rate 82 89 Respiratory Rate 26 H 24 Blood Pressure Pulse Oximetry 92 90 L Oxygen Delivery Method Nasal Cannula Room Air Room Air Oxygen Flow Rate 2 01/27/23 08:00 01/27/23 09:30 01/27/23 10:00 Temperature Pulse Rate 100 H 86 Respiratory Rate 26 H 22 Blood Pressure 160/98 H 162/72 H Pulse Oximetry 88 L 92 92 Oxygen Delivery Method Room Air Oxygen Flow Rate 0 0 0 01/27/23 12:34 01/27/23 12:40 01/27/23 14:00 Temperature 97.4 F L Pulse Rate 81 Respiratory Rate 22 Blood Pressure 166/88 H Pulse Oximetry 92 91 Oxygen Delivery Method Room Air Oxygen Flow Rate 0 0 Oxygen Delivery Method Room Air Oxygen Flow Rate 0 Narrative Exam Narrative: Gen: No acute distress CV: RRR no mr/g Pulm: trace rales bilateral bases, no wheezing. Abd: S NT ND Ext; No edema Objective Labs 01/27/23 04:15 01/27/23 04:15 Labs: Laboratory Results - last 24 hr 01/27/23 01/27/23 04:15 04:15 WBC 17.9 H RBC 3.81 L Hgb 12.1 Hct 35.9 L MCV 94.1 MCH 31.8 MCHC 33.7 RDW 14.9 H Plt Count 133 L Neut % (Auto) 89.8 H Lymph % (Auto) 5.5 L [place] % (Auto) 4.7 Eos % (Auto) 0.0 L Baso % (Auto) 0.0 Neut # (Auto) 80280 H Lymph # (Auto) 1000 L [place] # (Auto) 800 Eos # (Auto) 0 Baso # (Auto) 0 Sodium 145 Potassium 3.8 Chloride 117 H Carbon Dioxide 19 L BUN 16 Creatinine 0.88 Estimated GFR > 60 BUN/Creatinine Ratio 18.2 Glucose 150 H Calcium 7.5 L PFSH Medical History Asthma (~2009) Gonsales's esophagus (~2019) Carpal tunnel syndrome (~1994) Chronic back pain (~2011) COPD (chronic obstructive pulmonary disease) (~2016) Diverticular disease (~2009) Gastric reflux (~2019) Gastric ulcer (~2019) Lung cancer (~2016) Osteoarthritis (~2014) Osteoporosis (~2014) Shoulder pain (~2018) Sleep apnea (~2018) Surgical History Anesthesia History of carotid endarterectomy (~2017) History of carpal tunnel release (~1994) History of hysterectomy (~2002) History of knee surgery (~2009) Status post lobectomy of lung (~2017) Family History Father History of heart disease Hypertension Hyperlipidemia Mother History of heart disease Alzheimer's disease Brother History of heart disease Grandmother Cancer Social History household members: spouse Smoking Status: Former smoker alcohol intake: never Assessment & Plan Assessment & Plan narrative: 1. Sepsis with hypotension, thrombocytopenia, and hyperbilirubinemia secondary to gram negative bacteremia in the setting of #2 below - narrow to ceftriaxone from zosyn given urine cultures with sensitive E. coli. Can discharge on oral therapy. Awaiting final blood cultures still, pending speciation and sensitivities though high probability for E. coli. - WBC increased slightly, unclear if new pulmonary process but should have been covered with zosyn, may be stress response. If not improving tomorrow, or new fever add azithro for atypical coverage. - now s/p stent placement with urology, no clemente catheter placed. Outpatient follow up with urology recommended for further management. - appreciate urology consultation - continue to follow leukocytosis and renal function with cbc and bmp 2. Acute cystitis / bacteremia secondary to R nephrolithiasis with R ureteral obstruction / hydronephrosis. - continued zosyn as noted above initially and will narrow to ceftriaxone today, treatment with 10 -14 days of antibiotic therapy given bacteremia with stent placement, will transition to oral therapy on discharge. 3. Acute respiratory failure with hypoxia, secondary to acute volume overload from resuscitation for #1 and #2 above. - hold IV fluids - CXR today with likely diffuse edema, patient now no longer requiring O2. - discussed furosemide with patient for symptom help, but patient wished to avoid at this time given how much she is already urinating. Will continue to follow for now. 4. COPD with prior lobectomy, without exacerbation - patient brought in home [facility] for continued maintenance therapy, will continue at this time. - albuterol prn to continue as needed for wheezing or shortness of breath. 5. HLD, chronic - continue home statin 6. HTN, chronic - Resumed home atenolol. Code: Full, surrogate is patient's spouse DVT: Lovenox daily Dispo: Anticipate discharge home in the next 1-3 days, remains inpatient.
[2023-01-27] MEDS: ACETAMINOPHEN 325 MG TABLET 650 MG PO ×2 (15:46→20:24)
[2023-01-27] MEDS: hydrOXYzine pamoate 25 MG CAPSULE 50 MG PO (20:23)
[2023-01-27] MEDS: SODIUM CHLORIDE 0.9% FLUSH 10 ML IV (20:24)
[2023-01-27] MEDS: FUROSEMIDE 40 MG/4 ML VIAL IV (21:15)
--- NOTE | 2023-01-27 22:39 | PC.NURSE ---
Addendum entered by Annmarie Velásquez R.N. 01/28/23 06:57: Patient was able to rest throughout the night, total UOP 3700ml clear orange. Sleeping without O2, SpO2 92%, no more shortness of breath or hemoptymis. Original Note: [employer] [id number] Dr. King contacted at 2039 about increased shortness of breath and hemoptysis, patient has coarse crackles posteriorly and coarse audible wheezes. Patient had refused Lasix earlier, but is agreeable to it now. 40mg IV Lasix given, Purewick placed for night.
[2023-01-28] VITALS (39 sets, daily range): BP systolic 127–180; BP diastolic 59–83; PULSE 72–90; RESP 14–53; TEMP 36.1–37.2; O2SAT 89–96
[2023-01-28 04:49] LABS: Add Manual Diff / Slide Review NO; Basophils Absolute Auto 0 /uL (0-100); Basophils Percent Auto 0.1 % (0-2); Eosinophils Absolute Auto 0 /uL (0-450); Eosinophils Percent Auto 0.2 % (2-4); Hematocrit 36.3 % (36-46); Hemoglobin 12.4 g/dL (12.0-16.0); Lymphocytes Absolute Auto 2300 /uL (1100-4500); Lymphocytes Percent Auto 13.8 % (25-40); Mean Corpuscular HGB Conc 34.2 % (30-36); Mean Corpuscular Hemoglobin 31.6 PG (26-34); Mean Corpuscular Volume 92.4 fL (80-100); Monocytes Absolute Auto 1000 /uL (0-900); Monocytes Percent Auto 5.8 % (3-14); Neutrophils Absolute Auto 13600 /uL (1500-7000); Neutrophils Percent Auto 80.1 % (50-75); Platelet Count 149 X10^3/uL (150-400); Red Blood Cell Count 3.93 X10^6/uL (4.0-5.2); Red Cell Distribution Width 14.7 % (11.6-14.8); White Blood Cell Count 16.9 X10^3/uL (4.5-11.0)
[2023-01-28 04:55] LABS: Blood Urea Nitrogen 16 mg/dL (7-17); Calcium 8.5 mg/dL (8.4-10.2); Carbon Dioxide 27 mmol/L (22-32); Chloride 107 mmol/L (98-107); Estimated Glomerular Filt Rate > 60 mL/min (>60); Glucose 118 mg/dL (80-110); HEMOLYSIS < 15 (0-50); Potassium 3.1 mmol/L (3.4-5.1); Sodium 141 mmol/L (137-145)
[2023-01-28] MEDS: ACETAMINOPHEN 325 MG TABLET 650 MG PO (07:35)
[2023-01-28] MEDS: PANTOPRAZOLE DR 20 MG TABLET PO (07:36)
[2023-01-28] MEDS: cefTRIAXone 2,000 MG in SODIUM CHLORIDE 0.9% 100 ML 200 MG IV (07:36)
[2023-01-28] MEDS: PHENAZOPYRIDINE 100 MG TABLET PO (08:25)
[2023-01-28] MEDS: atenoloL 25 MG TABLET 12.5 MG PO (08:25)
[2023-01-28] MEDS: ATORVASTATIN 20 MG TABLET PO (08:25)
[2023-01-28] MEDS: FORMOTEROL INH ×2 (08:26→19:27)
[2023-01-28] MEDS: [UNRECOGNIZED DRUG - OTHER] INH ×2 (08:26→19:27)
[2023-01-28] MEDS: GLYCOPYRROLATE INH ×2 (08:26→19:27)
[2023-01-28] MEDS: BUDESONIDE INH ×2 (08:26→19:27)
[2023-01-28] MEDS: SODIUM CHLORIDE 0.9% FLUSH 10 ML IV ×2 (08:39→21:09)
[2023-01-28] MEDS: ALBUTEROL 2.5 MG/3 ML NEB (ADULT) INH ×4 (08:47→19:21)
[2023-01-28] MEDS: POTASSIUM CHLORIDE 20 MEQ TAB 40 MEQ PO (09:25)
--- NOTE | 2023-01-28 12:48 | P.PN_ITS ---
Subjective Subjective Interval history: The pt is a 67 yo with a hx of severe COPD s/p lobectomy and HTN who was admitted with obstructive uropathy, now found to have E. coli bacteremia due to urinary infection in the setting of her obstruction. Feels much improved today, got a dose of furosemide overnight and does not feel dyspnic today. WBC improving. We had prolonged discussion about risks and benefits of discharge home vs continued monitoring. After discussion with patient and daughter they elected for continued monitoring here in the hospital, and if continued stability discharge home tomorrow. Exam Vital Signs (past 8 hours): - 01/28/23 06:00 01/28/23 07:00 01/28/23 08:48 Temperature Pulse Rate 81 Respiratory Rate 14 Blood Pressure Pulse Oximetry 91 92 Oxygen Delivery Method Room Air Nasal Cannula Nasal Cannula Oxygen Flow Rate 1 01/28/23 08:00 01/28/23 10:05 01/28/23 11:02 Temperature 97.7 F Pulse Rate 80 72 Respiratory Rate 27 H 18 Blood Pressure 166/76 H 133/62 Pulse Oximetry 93 92 Oxygen Delivery Method Room Air Oxygen Flow Rate 2 0 01/28/23 05:00 01/28/23 05:30 01/28/23 06:00 Temperature Pulse Rate 76 72 75 Respiratory Rate 27 H 25 H 27 H Blood Pressure Pulse Oximetry 92 92 92 Oxygen Delivery Method Oxygen Flow Rate 01/28/23 06:30 01/28/23 07:00 01/28/23 07:30 Temperature Pulse Rate 76 82 81 Respiratory Rate 26 H 29 H 34 H Blood Pressure Pulse Oximetry 92 90 L 91 Oxygen Delivery Method Oxygen Flow Rate 01/28/23 07:32 01/28/23 07:32 01/28/23 08:00 Temperature Pulse Rate 80 73 Respiratory Rate 35 H 31 H Blood Pressure 166/76 H Pulse Oximetry 90 L 92 Oxygen Delivery Method Oxygen Flow Rate 01/28/23 08:30 01/28/23 09:00 01/28/23 09:30 Temperature Pulse Rate 81 90 85 Respiratory Rate 53 H 35 H 30 H Blood Pressure Pulse Oximetry 89 L 91 Oxygen Delivery Method Oxygen Flow Rate 01/28/23 10:00 01/28/23 10:30 01/28/23 10:53 Temperature Pulse Rate 76 77 77 Respiratory Rate 30 H 26 H 45 H Blood Pressure Pulse Oximetry Oxygen Delivery Method Oxygen Flow Rate 01/28/23 11:01 01/28/23 12:24 Temperature Pulse Rate 83 Respiratory Rate 14 Blood Pressure 133/62 Pulse Oximetry 90 L Oxygen Delivery Method Room Air Oxygen Flow Rate Oxygen Delivery Method Room Air Oxygen Flow Rate 0 Narrative Exam Narrative: Gen: No acute distress CV: RRR no mr/g Pulm: trace rales bilateral bases, no wheezing. Abd: S NT ND Ext; No edema Objective Labs 01/28/23 04:05 01/28/23 04:05 Labs: Laboratory Results - last 24 hr 01/28/23 01/28/23 04:05 04:05 WBC 16.9 H RBC 3.93 L Hgb 12.4 Hct 36.3 MCV 92.4 MCH 31.6 MCHC 34.2 RDW 14.7 Plt Count 149 L Neut % (Auto) 80.1 H Lymph % (Auto) 13.8 L [place] % (Auto) 5.8 Eos % (Auto) 0.2 L Baso % (Auto) 0.1 Neut # (Auto) 54735 H Lymph # (Auto) 2300 [place] # (Auto) 1000 H Eos # (Auto) 0 Baso # (Auto) 0 Sodium 141 Potassium 3.1 L Chloride 107 Carbon Dioxide 27 BUN 16 Creatinine 0.80 Estimated GFR > 60 BUN/Creatinine Ratio 20.0 Glucose 118 H Calcium 8.5 PFSH Medical History Asthma (~2009) Gonsales's esophagus (~2019) Carpal tunnel syndrome (~1994) Chronic back pain (~2011) COPD (chronic obstructive pulmonary disease) (~2016) Diverticular disease (~2009) Gastric reflux (~2019) Gastric ulcer (~2019) Lung cancer (~2016) Osteoarthritis (~2015) Osteoporosis (~2015) Shoulder pain (~2018) Sleep apnea (~2019) Surgical History Anesthesia History of carotid endarterectomy (~2017) History of carpal tunnel release (~1994) History of hysterectomy (~2002) History of knee surgery (~2009) Status post lobectomy of lung (~2017) Family History Father History of heart disease Hypertension Hyperlipidemia Mother History of heart disease Alzheimer's disease Brother History of heart disease Grandmother Cancer Social History household members: spouse Smoking Status: Former smoker alcohol intake: never Assessment & Plan Assessment & Plan narrative: 1. Sepsis with hypotension, thrombocytopenia, and hyperbilirubinemia secondary to gram negative bacteremia in the setting of #2 below - narrowed to ceftriaxone yesterday from zosyn given urine cultures with sensitive E. coli. Can discharge on oral therapy. Blood cultures finalized with gaspar-sensitive E. coli. - WBC improved today. Developed hemoptysis on 01/27, CXR without focal infiltrate and think bleeding likely due to recent intubation on admission. - now s/p stent placement with urology, no clemente catheter placed. Outpatient fo llow up with urology recommended for further management. - appreciate urology consultation - continue to follow leukocytosis and renal function with cbc and bmp 2. Acute cystitis / bacteremia secondary to R nephrolithiasis with R ureteral obstruction / hydronephrosis. - continued zosyn as noted above initially and will narrow to ceftriaxone on 01/27, treatment with 14 days of antibiotic therapy total given bacteremia with stent placement, will transition to oral therapy on discharge. 3. Acute respiratory failure with hypoxia, secondary to acute volume overload from resuscitation for #1 and #2 above. - likely secondary to fluid resuscitation. Improved after getting single dose of diuretic overnight on 01/27. - CXR 01/27 with likely diffuse edema, patient now no longer requiring O2. 4. COPD with prior lobectomy, without exacerbation - [facility] for continued maintenance therapy, will continue at this time. - albuterol prn to continue as needed for wheezing or shortness of breath. 5. HLD, chronic - continue home statin 6. HTN, chronic - Resumed home atenolol. She remains hypertensive. With above fluid retention, consider additional HCTZ or other diuretic for treatment of HTN if pressures remain elevated. Code: Full, surrogate is patient's spouse DVT: Lovenox daily Dispo: Anticipate discharge home in the next 1-2 days, remains inpatient. She is ambulatory without assistance in her room, no need for PT/OT at this time.
[2023-01-28] MEDS: BUTALB/APAP/CAFFEINE 50/325/40 TABLET 1 EACH PO (16:52)
[2023-01-29] VITALS (7 sets, daily range): BP systolic 130–149; BP diastolic 68–88; PULSE 80–91; RESP 16–19; TEMP 36.7–37.5; O2SAT 89–97
[2023-01-29] MEDS: ACETAMINOPHEN 325 MG TABLET 650 MG PO (04:34)
[2023-01-29 05:23] LABS: Add Manual Diff / Slide Review NO; Basophils Absolute Auto 0 /uL (0-100); Basophils Percent Auto 0.3 % (0-2); Eosinophils Absolute Auto 100 /uL (0-450); Hematocrit 36.4 % (36-46); Hemoglobin 12.7 g/dL (12.0-16.0); Lymphocytes Absolute Auto 2500 /uL (1100-4500); Lymphocytes Percent Auto 23.4 % (25-40); Mean Corpuscular HGB Conc 34.7 % (30-36); Mean Corpuscular Hemoglobin 31.9 PG (26-34); Mean Corpuscular Volume 91.8 fL (80-100); Monocytes Absolute Auto 1000 /uL (0-900); Monocytes Percent Auto 9.3 % (3-14); Neutrophils Absolute Auto 7100 /uL (1500-7000); Platelet Count 157 X10^3/uL (150-400); Red Blood Cell Count 3.97 X10^6/uL (4.0-5.2); Red Cell Distribution Width 14.1 % (11.6-14.8); White Blood Cell Count 10.8 X10^3/uL (4.5-11.0)
[2023-01-29 05:28] LABS: BUN Creatinine Ratio 14.8 (6-22); Blood Urea Nitrogen 12 mg/dL (7-17); Calcium 8.5 mg/dL (8.4-10.2); Carbon Dioxide 25 mmol/L (22-32); Chloride 103 mmol/L (98-107); Estimated Glomerular Filt Rate > 60 mL/min (>60); Glucose 123 mg/dL (80-110); HEMOLYSIS < 15 (0-50); Potassium 3.2 mmol/L (3.4-5.1); Sodium 137 mmol/L (137-145)
--- NOTE | 2023-01-29 07:55 | PM.DS.1 ---
History of Present Illness History of Present Illness Date Patient Seen: 01/25/23 Time Patient Seen: 23:42 Chief complaint: Vomiting, ABD pain Narrative: The pt is a 67 yo with a hx of severe COPD s/p lobectomy and HTN who has been having lower back pain for the past 2 days but the pain became much more severe today and radiated to the anterior aspect of the abd and suprapubic area. She reports having nausea and vomiting today, chills, sweats, urinary urgency and frequency. The pt also states she has had kidney stones for several years. There has been no crampy abd pain, no change in bowel habits or constipation. CT scan done in the ER showed a 3 mm Rt UJP stone with right sided hydronephrosis, urology was notified and she was taken to the OR [facility] for a cystoscopy and stent placement. Post procedure, she was hypotensive even after 4 liters but she states she is like this frequently after surgery. Discharge Providers Provider Date of admission: 01/25/23 17:38 Discharge Date: 01/29/23 Primary care physician: Irma Michele Discharge provider: Gopi Doshi DO Summary Hospital Course Discharge Diagnosis: 1. Sepsis with hypotension, thrombocytopenia, and hyperbilirubinemia secondary to gram negative bacteremia in the setting of #2 below, resolved ?- narrowed to ceftriaxone yesterday from zosyn given urine cultures with sensitive E. coli. Can discharge on oral therapy. Blood cultures finalized with gaspar-sensitive E. coli. ?- WBC now normal. Developed hemoptysis on 01/27, CXR without focal infiltrate and think bleeding likely due to recent intubation on admission. ?- now s/p stent placement with urology, no clemente catheter placed. Outpatient follow up with urology recommended for further management. ?- appreciate urology consultation 2. Acute cystitis / bacteremia secondary to R nephrolithiasis with R ureteral obstruction / hydronephrosis, improved ?- continued zosyn as noted above initially and narrowed to ceftriaxone on 01/27, recieved 4 days of IV abx - E. coli pansensitive - discharged on 10 more days of po levaquin 3. Acute respiratory failure with hypoxia, secondary to acute volume overload from resuscitation for #1 and #2 above. Resolved. ?- likely secondary to fluid resuscitation. Improved after getting single dose of diuretic overnight on 01/27. ?- CXR 01/27 with likely diffuse edema, patient now no longer requiring O2 after lasix. 4. COPD with prior lobectomy, without exacerbation ?- patient brought in home breztri for continued maintenance therapy, will continue at this time. ?- albuterol prn to continue as needed for wheezing or shortness of breath. 5. HLD, chronic ?- continue home statin 6. HTN, chronic ?- Resumed home atenolol. She remains hypertensive. With above fluid retention, consider additional HCTZ or other diuretic for treatment of HTN if pressures remain elevated. 7. Hemoptysis - occured following intubation for urologic stent, likely trauma related from intubation, was also receiving DVT proph with lovenox - CXR showed inflammation with possible small alveolar hemorrhage, but repeat CXR the next day showed this was resolving - counseled to see her PCP if the hemoptysis doesn't resolved over time - not on any blood thinners at home Hospital Course: Admitted for sepsis and found to have impacted R kidney stone with R hydro. Recieved IV Zosyn and blood and urine cultures grew pansensitive E. coli. Urology placed stent and pt will see in clinic for lithotripsy and stent removal. Was requiring O2 following extubation from stent, with some mild hemoptysis. CXR showed inflammation with possible alveolar hemorrhage but serial CXR showed this was improving. She was counseled to have her PCP f/u on the hemoptysis if not resolving over time. May warrant outpatient CT chest if this is the case. Weaned off O2 after receiving IV lasix. Discharged on 10 additional days of po levaquin to complete 14 day abx course. Time Spent with Patient Time spent: Greater than 30 minutes Exam Vital Signs (past 8 hours): - 01/29/23 00:00 01/29/23 02:00 01/29/23 04:00 Temperature 98.1 F 99.5 F Pulse Rate 84 91 H Respiratory Rate 18 19 Blood Pressure 149/68 H 135/88 Pulse Oximetry 90 L 90 L 89 L Oxygen Delivery Method Room Air 01/29/23 06:00 Temperature Pulse Rate Respiratory Rate Blood Pressure Pulse Oximetry 92 Oxygen Delivery Method Room Air Oxygen Delivery Method Room Air Oxygen Flow Rate 0 Narrative Exam Narrative: Gen: No acute distress CV: RRR no mr/g Pulm: trace rales bilateral bases, no wheezing. Abd: S NT ND Ext; No edema Objective Labs 01/29/23 04:30 01/29/23 04:30 Labs: Laboratory Results - last 24 hr 01/29/23 01/29/23 04:30 04:30 WBC 10.8 RBC 3.97 L Hgb 12.7 Hct 36.4 MCV 91.8 MCH 31.9 MCHC 34.7 RDW 14.1 Plt Count 157 Neut % (Auto) 66.0 Lymph % (Auto) 23.4 L Miner % (Auto) 9.3 Eos % (Auto) 1.0 L Baso % (Auto) 0.3 Neut # (Auto) 7100 H Lymph # (Auto) 2500 [place] # (Auto) 1000 H Eos # (Auto) 100 Baso # (Auto) 0 Sodium 137 Potassium 3.2 L Chloride 103 Carbon Dioxide 25 BUN 12 Creatinine 0.81 Estimated GFR > 60 BUN/Creatinine Ratio 14.8 Glucose 123 H Calcium 8.5 PFSH Medical History Asthma (~2009) Gonsales's esophagus (~2019) Carpal tunnel syndrome (~1994) Chronic back pain (~2011) COPD (chronic obstructive pulmonary disease) (~2016) Diverticular disease (~2009) Gastric reflux (~2019) Gastric ulcer (~2019) Lung cancer (~2016) Osteoarthritis (~2014) Osteoporosis (~2014) Shoulder pain (~2018) Sleep apnea (~2018) Surgical History Anesthesia History of carotid endarterectomy (~2017) History of carpal tunnel release (~1994) History of hysterectomy (~2002) History of knee surgery (~2009) Status post lobectomy of lung (~2017) Family History Father History of heart disease Hypertension Hyperlipidemia Mother History of heart disease Alzheimer's disease Brother History of heart disease Grandmother Cancer Social History household members: spouse Smoking Status: Former smoker alcohol intake: never Discharge Plan Discharge Plan Patient Disposition: Home Provider Discharge Comment: You were admitted for an impacted kidney stone causing sepsis from E. coli UTI and bloodstream infection. A stent was placed by urology to relieve the obstruction, and now you will need to f/u with them in clinic for stone removal. Your sepsis improved with IV antibiotics and you will now finish 10 more days of oral antibiotics at home. Discharge orders & Medications Prescriptions: New levofloxacin 750 mg tablet 750 mg PO DAILY 10 Days Qty: 10 0RF Rx Instructions: start on 01/30. Continued atorvastatin 20 mg Tablet 20 mg PO DAILY atenolol 25 mg Tablet 12.5 mg PO DAILY Breztri Aerosphere 160-9-4.8 mcg/actuation Hfa Aerosol Inhaler 2 inh INHALATION BID hydroxyzine HCl 50 mg tablet 50 mg PO BEDTIME Follow up/Referrals: Irma Michele PA-C [Primary Care Provider] - 2 Weeks Fernando Pelletier MD [Physician] - 1 Week Visit Report/Discharge Packet Stand Alone Forms: Patient Portal/API, Stroke Signs & Symptoms Discharge Data Primary Care Provider: Irma Michele
[2023-01-29] MEDS: ALBUTEROL 2.5 MG/3 ML NEB (ADULT) INH (08:17)
[2023-01-29] MEDS: GLYCOPYRROLATE INH (08:18)
[2023-01-29] MEDS: BUDESONIDE INH (08:18)
[2023-01-29] MEDS: FORMOTEROL INH (08:18)
[2023-01-29] MEDS: [UNRECOGNIZED DRUG - OTHER] INH (08:18)
[2023-01-29] MEDS: ENOXAPARIN 40 MG/0.4 ML SYRINGE SUBCUT (08:22)
[2023-01-29] MEDS: PHENAZOPYRIDINE 100 MG TABLET PO (08:22)
[2023-01-29] MEDS: ATORVASTATIN 20 MG TABLET PO (08:22)
[2023-01-29] MEDS: atenoloL 25 MG TABLET 12.5 MG PO (08:22)
[2023-01-29] MEDS: POTASSIUM CHLORIDE 20 MEQ TAB 40 MEQ PO (08:30)
[2023-01-29] MEDS: cefTRIAXone 2,000 MG in SODIUM CHLORIDE 0.9% 100 ML 200 MG IV (08:30)
--- NOTE | 2023-01-29 09:16 | DI.RAD.S_ITS ---
PROCEDURE: XR CHEST 1V INDICATIONS: continued hemoptysis TECHNIQUE: One view of the chest was acquired. COMPARISON: [facility], CR, XR CHEST 1V, 01/27/2023, 11:32. FINDINGS: Surgical changes and devices: Mediastinal surgical clips noted Lungs and pleura: Lungs are clear. No pleural effusions or pneumothorax. Left basilar atelectasis and or infiltrate Mediastinum: Mediastinal contours appear normal. Heart size is normal. Atherosclerotic vascular calcification noted in the aortic arch. Bones and chest wall: No suspicious bony lesions. Overlying soft tissues appear unremarkable. IMPRESSION: Improving left basilar atelectasis and or infiltrate Approved by: Kenny Flores M.D. on 01/29/2023 at 10:05
--- NOTE | 2023-01-29 10:25 | PC.NURSE ---
Addendum entered by Gricelda Murphy R.N. 01/29/23 12:14: Pt D/C orders HL D/C'd intact. Home instructions given w/understanding Pt escorted by staff via W/C to waiting vehicle D/C in stable status Original Note: Pt denies discomfort HL discontinued intact Chest X-ray completed. Awaiting D/C after CXR viewed Call light w/in reach, pt calls appropriately for needs Continue w/plan of care.
--- NOTE | 2023-01-29 13:51 | CM.DPC ---
DCP Discharge Home Per MD, pt has improved but still coughing up some bloody mucus and xray determined no further medical concerns with her lungs at this time and pt medically stable to d/c with stent in place and oral abx and outpt f/u with Urology for her kidney stones after she completes her abx course and no further barriers to discharge at this time. Plan: Patient to d/c home via spouse POV and oral medications and outpt f/u with Dr. Pelletier for stent and kidney stones. No further SW needs at this time. Otilia Orozco, EXTENSION SERVICE SPECIALIST
== END 2023-01-29 12:05 | disposition home or self-care (01) | DRG 659 ==
LOC: ED 14:46 → AC 17:39 → ICU 01-26 07:38
PROVIDERS: Emergency Medicine; Internal Medicine; Admitting Provider Specialist; Emergency Provider Student in an Organized Health Care Education/Training Program; PCP Physician Assistant; Referring Provider Student in an Organized Health Care Education/Training Program; Visit Provider Internal Medicine
PROC: 0T768DZ Dilation of Right Ureter with Intraluminal Device, Via Natural or Artificial Opening Endoscopic (ICD-10-PCS; principal; 2023-01-25 18:15)
DX: N13.6 Pyonephrosis (principal); A41.9 Sepsis, unspecified organism; J96.01 Acute respiratory failure with hypoxia; R04.2 Hemoptysis; J44.9 Chronic obstructive pulmonary disease, unspecified; Z90.2 Acquired absence of lung [part of]; I10 Essential (primary) hypertension; I95.81 Postprocedural hypotension; K21.9 Gastro-esophageal reflux disease without esophagitis; D69.6 Thrombocytopenia, unspecified; E80.6 Other disorders of bilirubin metabolism; E78.5 Hyperlipidemia, unspecified; I71.40 Abdominal aortic aneurysm, without rupture, unspecified
CPT/HCPCS: 36415; 52330; 52332; 71045; 74018; 74177; 76000; 80048; 80053; 81003; 81015; 83605; 83690; 85007; 85025; 86850; 86900; 86901; 87040; 87070; 87077; 87086; 87154; 87186; 87205; 87797; 93005; 93010; 94640; 94760; 94762; 96374; 96375; 99222; 99284; J0330; J0696; J1100; J1170; J1650; J1885; J1940; J2270; J2405; J2543; J3010; J7613

== ENCOUNTER → 2023-02-15 12:26 | Outpatient (CLI) | payer OTHER, SELFPAY ==
[2023-01-25 21:41] VITALS: BMI 27.3
--- NOTE | 2023-02-15 12:27 | DI.RAD.S_ITS ---
PROCEDURE: XR KUB INDICATIONS: kidney stones TECHNIQUE: One view of the abdomen acquired. COMPARISON: [facility], CT, CT ABDOMEN PELVIS W CON, 01/25/2023, 15:32. [facility], CR, XR ABDOMEN 1V, 01/25/2023, 18:49. FINDINGS: Surgical changes and devices: Right ureteral stent in expected position.. Bowel: Bowel gas pattern is normal. Soft tissues: No suspicious abdominal calcifications. Visualized solid organ contours appear normal in size. Bones: No suspicious bony lesions. IMPRESSION: Right ureteral stent. Right UVJ stone not identified and may have passed. Please correlate with clinical data. Dictated by: Feli Chávez MD, PhD on 02/15/2023 at 13:08 Approved by: Feli Chávez MD, PhD on 02/15/2023 at 13:10
== END ==
PROVIDERS: PCP Physician Assistant; Referring Provider Specialist; Visit Provider Specialist
DX: N20.0 Calculus of kidney (principal); Z96.0 Presence of urogenital implants
CPT/HCPCS: 74018

== ENCOUNTER 2023-02-18 06:40 | Day surgery (SDC) | payer OTHER, SELFPAY ==
[2023-01-25 21:41] VITALS: BMI 27.3
[2023-02-16 16:09] VITALS: BMI 29.1
[2023-02-18] VITALS (7 sets, daily range): BP systolic 114–136; BP diastolic 53–67; PULSE 68–83; RESP 12–22; TEMP 36.2–36.5; O2SAT 95–100; BMI 29.1
--- NOTE | 2023-02-18 | DI.RAD.S_ITS ---
PROCEDURE: XR ABDOMEN 1V INDICATIONS: RT STENT REMOVAL TECHNIQUE: 2 intra-operative images acquired by the Urology service. COMPARISON: [facility], CR, XR ABDOMEN 1V, 01/25/2023, 18:49. FINDINGS: Operative fluoroscopy utilized during ureteral stent removal. IMPRESSION: Operative imaging utilized during removal of a right ureteral stent. No radiographic evidence of complications. Dictated by: Julien Marcus M.D. on 02/18/2023 at 13:19 Approved by: Julien Marcus M.D. on 02/18/2023 at 13:20
--- NOTE | 2023-02-18 07:34 | PM.PREOP ---
Pre-operative Note Interval Note History & Physical reviewed/Exam performed by Physician: Yes Changes to H&P: No
[2023-02-18] MEDS: LACTATED RINGERS 1,000 ML 21 ML IV (07:36)
[2023-02-18] MEDS: CEFAZOLIN 2 GM/100 ML PREMIX 100 ML IV (07:50)
--- NOTE | 2023-02-18 08:09 | SUR.OPER ---
Lithotomy on padded OR bed, head on pillow, arms secured on padded arm boards at <90 degrees abduction. Legs secured in padded yellow fins stirrups.
[2023-02-18] MEDS: iopamidoL 30 ML VIAL INTRAURETH (08:17)
--- NOTE | 2023-02-18 08:38 | P.OP_ITS ---
Operative Date/Time/Diagnoses Date of procedure: 02/18/23 Time of procedure: 08:30 Pre-op diagnosis: 1. 3 mm right distal ureteral calculus. 2. Retained right ureteral stent. 3. History of urosepsis. Post-op diagnosis: same Procedure & Clinicians Procedure: 1. Cystoscopy/right ureteral stent removal. 2. Cystoscopy/right ureteroscopic stone extraction. 3. Cystoscopy/right retrograde pyelogram. Same procedure as scheduled: No (No laser treatment required. See findings.) Indications: 1. 3 mm right distal ureteral calculus. 2. Retained right ureteral stent. 3. History of urosepsis. Surgeon: Fernando Pelletier Click Yes if Unassisted: Yes Anesthesia Type: General Operative Notes Findings: 1. Urethra-mild to moderate-sized caruncle without thrombosis or hemorrhage. 2. Bladder-grade 2 cystocele. Normal ureteral orifices bilaterally. The right ureteral orifice has a right ureteral stent coil emitting with associated mild edema and erythema. There encrustations noted on the stent coil. 3. Right ureter- index calculus readily fragmented into numerous pieces upon removal of the ureteral stent. Closure Type: not applicable Specimen(s): other (Stone fragments.) Estimated Blood Loss (mL): 0 Procedure in detail: The patient was positioned in supine was administered general anesthesia. She was then repositioned in semi-lithotomy in the lower abdomen, genitalia, and groin were then prepped and draped in sterile fashion. The 22 Maltese panendoscope was then passed the lower urinary tract with findings as described above. The alligator foreign body grasper was utilized and engaged the distal right ureteral stent coil and then bring it out to the level of the urethral meatus. Attempts to pass a hybrid guidewire were unsuccessful due to stent encrustation. Therefore, the stent was manually removed in its entirety in the gaspar endoscope was reintroduced lower urinary tract and now 0.35 hybrid guidewire was advanced through the working channel of the panendoscope was then advanced in the right ureteral orifice in proximally under direct and fluoroscopic guidance. The panendoscope was then backloaded off the wire. The wire was secured to the surgical drape. The semi rigid ureteral scope was then prepared and was introduced in lower urinary tract and then into the right ureteral orifice. Stone fragments were seen in residing dependently in the floor of the bladder at this time as well as in the distal ureteral segment. Ureteroscopy was performed to the level of the right ureteropelvic junction without evidence of intact stone seen. At this point the semi rigid ureteral scope was withdrawn to a point just proximal to the right ureteral orifice. A retrograde pyelogram was then performed with cine. No stone or filling defect was identified. The semi rigid ureteral scope was then removed. The panendoscope was then reintrodu juan in the bladder was irrigated of its fragments. Numerous fragments were then collected and submitted to laboratory for analysis. The bladder was drained completely and the panendoscope was removed a final time. The patient was then repositioned in supine, awakened, and transported recovery in stable condition. Complications: none Post-operative Condition: stable Disposition: PACU Plan for aftercare: Discharge home.
[2023-02-18] MEDS: ONDANSETRON 4 MG/2 ML INJ IV (08:45)
[2023-02-18] MEDS: ACETAMINOPHEN 325 MG TABLET 650 MG PO (08:56)
== END 2023-02-18 09:33 | disposition home or self-care (01) ==
PROVIDERS: PCP Physician Assistant; Referring Provider Specialist; Visit Provider Specialist
PROC: (CPT 52352; principal; 2023-02-18 07:45)
DX: N20.1 Calculus of ureter (principal); Z96.0 Presence of urogenital implants; N36.2 Urethral caruncle
CPT/HCPCS: 52352; 74018; 76000; 82365; J0690; J1100; J2405; J2704; J3010; Q9967

== ENCOUNTER → 2023-04-11 12:19 | Outpatient (CLI) | payer OTHER, SELFPAY ==
[2023-01-25 21:41] VITALS: BMI 27.3
[2023-04-11 13:49] LABS: Uric Acid 3.4 mg/dL (2.5-6.2)
== END ==
PROVIDERS: PCP Physician Assistant; Referring Provider Specialist; Visit Provider Specialist
DX: Z96.0 Presence of urogenital implants (principal); N20.1 Calculus of ureter; N13.30 Unspecified hydronephrosis; N20.0 Calculus of kidney
CPT/HCPCS: 36415; 82310; 84550

== ENCOUNTER → 2023-05-06 12:13 | Outpatient (CLI) | payer OTHER, SELFPAY ==
[2023-01-25 21:41] VITALS: BMI 27.3
--- NOTE | 2023-05-06 | DI.CT.S_ITS ---
PROCEDURE: CT CHEST WO CON INDICATIONS: Chronic obstructive pulmonary disease, unspecified TECHNIQUE: Noncontrast 5 mm thick sections acquired from the pulmonary apices to the posterior costophrenic angles. 1 mm lung window, 5 mm thick coronal and sagittal and 7 mm axial MIP reformats were then acquired. For radiation dose reduction, the following was used: automated exposure control, adjustment of mA and/or kV according to patient size. COMPARISON: [facility], CT, CT CHEST WO CON, 03/16/2022, 12:04. FINDINGS: Image quality: Diagnostic. Lungs and pleura: There is severe centrilobular emphysema with an apical predominance. Apical scarring is present bilaterally, as before. Mediastinum: Heart size is normal. No pericardial effusion. No mediastinal adenopathy by size criteria. Thoracic aorta and central pulmonary arteries are normal in size. Scattered atheromatous calcifications are present within the aortic arch. Esophagus is normal in caliber. No hiatal hernia. Bones and chest wall: No suspicious bony lesions. No vertebral body compression fractures. No axillary or supraclavicular adenopathy by size criteria. The thyroid is unremarkable. Upper Abdomen: Visualized upper abdominal solid organs and bowel loops appear normal in the absence of contrast. IMPRESSION: 1. No suspicious pulmonary nodules or acute airspace opacities. 2. Pulmonary emphysema. Dictated by: Heather Gupta M.D. on 05/06/2023 at 15:58 Approved by: Heather Gupta M.D. on 05/06/2023 at 16:02
== END ==
PROVIDERS: PCP Physician Assistant; Referring Provider Internal Medicine; Visit Provider Internal Medicine
DX: C34.32 Malignant neoplasm of lower lobe, left bronchus or lung (principal); J43.2 Centrilobular emphysema
CPT/HCPCS: 71250

== ENCOUNTER → 2023-06-22 14:44 | Outpatient (CLI) | payer OTHER, SELFPAY ==
[2023-01-25 21:41] VITALS: BMI 27.3
--- NOTE | 2023-06-22 | DI.US.S_ITS ---
PROCEDURE: US THYROID INDICATIONS: THYROID NODULE TECHNIQUE: Real-time scanning was performed of the thyroid gland, with image documentation. COMPARISON: [facility], US, US THYROID, 01/18/2022, 12:49. FINDINGS: Right: Thyroid lobe measures 4.6 x 1.7 x 1.7 cm, and is homogeneous in echotexture. Left: Thyroid lobe measures 3.3 x 1.4 x 1.5 cm, and is homogenous in echotexture. Isthmus: 0.2 cm thick. Nodule number: 1 Location: Right upper pole Size: 0.3 x 0.2 x 0.2 cm, previously 0.3 x 0.2 x 0.2 cm. Composition: Cystic Echogenicity: Anechoic Shape: wider than tall. Margins: Smooth Echogenic foci: Peripheral Total points: 1 ACR TI-RADS category: Benign IMPRESSION: Unremarkable thyroid ultrasound. No further follow-up currently required. ACR TI-RADS definitions and recommendations: TI-RADS 1 (benign): 0 points. FNA not needed. TI-RADS 2 (not suspicious): 2 points. FNA not needed. TI-RADS 3 (mildly suspicious): 3 points. * FNA if 2.5 cm or larger, follow up if 1.5 cm or larger (at 1, 3, and 5 years). TI-RADS 4 (moderately suspicious): 4-6 points. * FNA if 1.5 cm or larger, follow up if 1 cm or larger (at 1, 2, 3, and 5 years). TI-RADS 5 (highly suspicious): 7 points or more. * FNA if 1 cm or larger, follow up if 0.5 cm or larger (every year for 5 years). Dictated by: Julien Marcus M.D. on 06/22/2023 at 17:31 Approved by: Julien Marcus M.D. on 06/22/2023 at 17:37
--- NOTE | 2023-06-22 | DI.US.S_ITS ---
PROCEDURE: US AORTA LIMITED INDICATIONS: HX ENDARTERECTOMY TECHNIQUE: Real time scanning was performed of the aorta and iliac arteries, with image documentation. COMPARISON: None. FINDINGS: Aorta: Proximal aortic diameter measures 2.4 cm. Mid-aorta measures 2.2 cm. Distal aortic diameter is 3.9 cm. Iliac arteries: Right common iliac artery measures 1.1 cm. Left common iliac artery measures 0.9 cm. Elevated velocities in the external iliac vasculature, measuring 305 centimeter/second on the right and 264 centimeter/second on the left. IMPRESSION: Infrarenal aortic aneurysm measuring 3.9 cm. Recommend 3 year follow-up per ACR consensus guidelines. Elevated velocities within the external iliac vasculature, suggestive of stenosis. Dictated by: Chepe Tellez M.D. on 06/23/2023 at 0:55 Approved by: Chepe Tellez M.D. on 06/23/2023 at 0:57
--- NOTE | 2023-06-22 | DI.MRI.S_ITS ---
P pole ROCEDURE: MR LUMBAR SPINE WO CON INDICATIONS: RADICULOPATHY TECHNIQUE: Noncontrast sagittal T1 spin echo and T2 fast echo, sagittal STIR, and T2 fast spin echo through the lumbar spine. In cases with scoliosis, additional coronal T2 fast spin echo may be performed. COMPARISON: [facility], , AORTA LIMITED, 06/22/2023, 15:11. FINDINGS: Image quality: Excellent. Alignment and Curvature: There is normal bony alignment. Bone Marrow: Marrow is of normal overall signal. No acute vertebral body compression fractures. Spinal Cord: Conus medullaris terminates at the L1-2 level. Visualized cord demonstrates normal signal and size. Paraspinous Soft Tissues: No paravertebral masses. Infrarenal aortic aneurysm, better characterized on same day aortic ultrasound T12-L1: Normal appearance. L1-L2: Normal appearance. L2-L3: Disc osteophyte complex, facet hypertrophy, moderate spinal canal narrowing, moderate right and mild left neural foraminal narrowing. L3-L4: Broad-based disc bulge, ligamentum flavum hypertrophy, facet hypertrophy causing moderate spinal canal narrowing, mild right and [id number] left neural foraminal narrowing. L4-L5: Broad-based disc bulge, ligamentum flavum hypertrophy, facet hypertrophy causing severe spinal canal narrowing and moderate to severe bilateral neural foraminal narrowing L5-S1: Broad-based disc bulge, ligamentum flavum hypertrophy. Severe left and mild to moderate right neural foraminal narrowing. IMPRESSION: Multilevel degenerative disc disease and facet arthrosis. Of note, there is moderate spinal canal narrowing at L2-3, L3-4 and severe spinal canal narrowing at L4-5. Additionally, there is severe left and [id number] right neural foraminal narrowing at L5-S1, moderate to severe bilateral neural foraminal narrowing at L4-5. Infrarenal aortic aneurysm, better characterized on same day ultrasound. Please see ultrasound for further recommendations. Dictated by: Chepe Tellez M.D. on 06/23/2023 at 0:27 Approved by: Chepe Tellez M.D. on 06/23/2023 at 0:32
--- NOTE | 2023-06-22 | DI.US.S_ITS ---
PROCEDURE: US CAROTID DOPPLER BI INDICATIONS: AAA TECHNIQUE: Color and pulse Doppler interrogation was performed of both carotid systems, with image documentation and velocity measurements. COMPARISON: [facility], , US CAROTID DOPPLER BI, 08/17/2021, 12:12. FINDINGS: Stenosis calculations are based on SRU (Society of Radiologists in Ultrasound) criteria. Right side: Brachial blood pressure: 141/66 mm Hg. Common carotid artery peak systolic velocity: 78 cm/sec. Internal carotid artery peak systolic velocity: 135 cm/sec. Internal carotid artery end diastolic velocity: 42 cm/sec. External carotid artery peak systolic velocity: 77 cm/sec. ICA/CCA peak systolic ratio: 1.7 . Mckeon scale imaging description: Moderate atherosclerotic plaque Percent internal carotid artery stenosis: Greater than 50 . Vertebral artery: Flow direction is antegrade. Left side: Brachial blood pressure: 142/68 mm Hg. Common carotid artery peak systolic velocity: 169 cm/sec. Internal carotid artery peak systolic velocity: 116 cm/sec. Internal carotid artery end diastolic velocity: 32 cm/sec. External carotid artery peak systolic velocity: 86 cm/sec. ICA/CCA peak systolic ratio: 0.7 . Mckeon scale imaging description: Atherosclerotic plaque particularly in the distal common carotid Percent internal carotid artery stenosis: Less than 50 . Vertebral artery: Flow direction is antegrade. IMPRESSION: 50-69% stenosis, proximal right ICA. Less than but approaching 50% stenosis in the proximal left ICA. Greater than 50% stenosis in the distal left CCA Approved by: Kenny Flores M.D. on 06/22/2023 at 19:29
== END ==
PROVIDERS: PCP Physician Assistant; Referring Provider Physical Medicine & Rehabilitation; Visit Provider Physical Medicine & Rehabilitation
DX: M51.16 Intervertebral disc disorders with radiculopathy, lumbar region (principal); M51.17 Intervertebral disc disorders with radiculopathy, lumbosacral region; M47.26 Other spondylosis with radiculopathy, lumbar region; M47.27 Other spondylosis with radiculopathy, lumbosacral region; I65.23 Occlusion and stenosis of bilateral carotid arteries; I71.40 Abdominal aortic aneurysm, without rupture, unspecified; E04.1 Nontoxic single thyroid nodule; Z98.890 Other specified postprocedural states
CPT/HCPCS: 72148; 76536; 76770; 93880; 93979

== ENCOUNTER → 2023-11-17 12:19 | Outpatient (CLI) | payer MEDICARE, SELFPAY ==
[2023-01-25 21:41] VITALS: BMI 27.3
--- NOTE | 2023-11-17 12:20 | DI.RAD.S_ITS ---
PROCEDURE: XR FOOT LT MIN 3V INDICATIONS: lateral pain / swelling x 2 weeks, cracking last night TECHNIQUE: 3 views of the foot were acquired. COMPARISON: [facility], , XR FOOT LT MIN 3V, 03/16/2022, 12:05. FINDINGS: Bones: Mildly displaced fracture at the base of the 5th metatarsal, 1.3 cm from the base. Soft tissues: No tibiotalar joint effusion. Achilles tendon appears normal. IMPRESSION: Mildly displaced fracture at the base of the 5th metatarsal. Dictated by: Chepe Tellez M.D. on 11/17/2023 at 14:50 Approved by: Chepe Tellez M.D. on 11/17/2023 at 14:51
== END ==
PROVIDERS: PCP Physician Assistant; Referring Provider Physician Assistant; Visit Provider Physician Assistant
DX: S92.352A Displaced fracture of fifth metatarsal bone, left foot, initial encounter for closed fracture (principal); M79.672 Pain in left foot
CPT/HCPCS: 73630

== ENCOUNTER → 2024-01-31 12:37 | Outpatient (CLI) | payer MEDICARE, SELFPAY ==
[2023-01-25 21:41] VITALS: BMI 27.3
--- NOTE | 2024-01-31 12:39 | DI.MG.S_ITS ---
BILATERAL DIGITAL SCREENING MAMMOGRAM 3D/2D WITH CAD: 01/31/2024 CLINICAL: Routine screening. Family history of breast cancer. Comparison is made to exams dated: 01/20/2023 mammogram, 01/18/2022 mammogram - [facility], and 03/13/2020 mammogram - out side. The breasts are almost entirely fatty (category a/<25% glandular tissue). Current study was also evaluated with a Computer Aided Detection (CAD) system. There is a benign focal asymmetry in the left breast. No significant masses, calcifications, or other findings are seen in either breast. There has been no significant interval change. IMPRESSION: BENIGN There is no mammographic evidence of malignancy. A 1 year screening mammogram is recommended. Based on the Tyrer Cuzick model (a risk assessment model) the patient's lifetime risk is 2.9% and her 10 year risk is 1.5%. According to the ACR, ACS, and NCCN guidelines, an annual breast MRI exam along with mammogram is recommended if the patient's lifetime risk is 20% or greater. This exam was interpreted at Station ID: [id number]. NOTE: For mammograms, a report in lay terms will be sent to the patient. Approximately 15% of breast malignancies will not be visualized mammographically. In the management of a palpable breast mass, a negative mammogram must not discourage biopsy of a clinically suspicious lesion. Electronically Signed By: Becca cartagena/cait:01/31/2024 14:59:16 letter sent: Normal Exam ACR BI-RADS Category 2: Benign [id number]
== END ==
PROVIDERS: PCP Internal Medicine; Visit Provider Physician Assistant
DX: Z12.31 Encounter for screening mammogram for malignant neoplasm of breast (principal); Z80.3 Family history of malignant neoplasm of breast; R92.313 Mammographic fatty tissue density, bilateral breasts
CPT/HCPCS: 77063; 77067

== ENCOUNTER → 2024-03-21 11:45 | Outpatient (CLI) | payer MEDICARE, SELFPAY ==
[2023-01-25 21:41] VITALS: BMI 27.3
[2024-03-21 13:09] LABS: Add Manual Diff / Slide Review NO; Basophils Absolute Auto 0 /uL (0-100); Basophils Percent Auto 0.5 % (0-2); Eosinophils Absolute Auto 200 /uL (0-450); Eosinophils Percent Auto 2.3 % (2-4); Hematocrit 45.9 % (36-46); Hemoglobin 15.6 g/dL (12.0-16.0); Lymphocytes Absolute Auto 1500 /uL (1100-4500); Mean Corpuscular HGB Conc 34.1 % (30-36); Mean Corpuscular Hemoglobin 32.2 PG (26-34); Mean Corpuscular Volume 94.6 fL (80-100); Monocytes Absolute Auto 600 /uL (0-900); Monocytes Percent Auto 8.7 % (3-14); Neutrophils Absolute Auto 4500 /uL (1500-7000); Neutrophils Percent Auto 66.5 % (50-75); Platelet Count 205 X10^3/uL (150-400); Red Blood Cell Count 4.85 X10^6/uL (4.0-5.2); Red Cell Distribution Width 13.7 % (11.6-14.8); White Blood Cell Count 6.8 X10^3/uL (4.5-11.0)
[2024-03-21 13:10] LABS: Alanine Aminotransferase 27 IU/L (<35); Albumin 4.5 g/dL (3.5-5.0); Albumin Globulin Ratio 1.6 (1.0-2.8); Alkaline Phosphatase 72 U/L (38-126); Aspartate Aminotransferase 57 IU/L (14-36); BUN Creatinine Ratio 17.3 (6-22); Bilirubin Total 1.6 mg/dL (0.2-1.3); Blood Urea Nitrogen 14 mg/dL (7-17); Calcium 9.5 mg/dL (8.4-10.2); Carbon Dioxide 22 mmol/L (22-32); Chloride 109 mmol/L (98-107); Estimated Glomerular Filt Rate > 60 mL/min (>60); Globulin 2.8 g/dL (1.7-4.1); Glucose 97 mg/dL (80-110); Potassium 4.5 mmol/L (3.4-5.1); Sodium 141 mmol/L (137-145); Total Protein 7.3 g/dL (6.3-8.2)
[2024-03-21 13:11] LABS: HEMOLYSIS 119 (0-50)
== END ==
PROVIDERS: PCP Internal Medicine; Referring Provider Physician Assistant; Visit Provider Physician Assistant
DX: L29.89 Other pruritus (principal)
CPT/HCPCS: 36415; 80053; 85025

== ENCOUNTER 2024-03-26 13:53 | Emergency (ER) | payer MEDICARE, SELFPAY ==
[2023-01-25 21:41] VITALS: BMI 27.3
[2024-03-26] VITALS (7 sets, daily range): BP systolic 138–166; BP diastolic 69–72; PULSE 66–78; RESP 20; TEMP 36.5; O2SAT 90–99; BMI 28.5
[2024-03-26 16:29] LABS: Alanine Aminotransferase 33 IU/L (<35); Albumin 4.6 g/dL (3.5-5.0); Albumin Globulin Ratio 1.4 (1.0-2.8); Alkaline Phosphatase 75 U/L (38-126); Aspartate Aminotransferase 48 IU/L (14-36); BUN Creatinine Ratio 15.7 (6-22); Bilirubin Total 1.4 mg/dL (0.2-1.3); Blood Urea Nitrogen 13 mg/dL (7-17); Calcium 9.5 mg/dL (8.4-10.2); Carbon Dioxide 25 mmol/L (22-32); Chloride 107 mmol/L (98-107); Estimated Glomerular Filt Rate > 60 mL/min (>60); Globulin 3.4 g/dL (1.7-4.1); Glucose 96 mg/dL (80-110); HEMOLYSIS < 15 (0-50); Lipase 72 U/L (23-300); Potassium 3.9 mmol/L (3.4-5.1); Sodium 139 mmol/L (137-145)
[2024-03-26 16:36] LABS: Bacteria Urine None Seen; Culture Indicated Urine Cult Not Indicated; RBC Urine None Seen (0-5/HPF); Squamous Epithelial Cell Urine None Seen (0-5/HPF); Urine Volume 10mL (spun); WBC Urine None Seen (0-5/HPF)
[2024-03-26 16:55] LABS: Add Manual Diff / Slide Review NO; Basophils Absolute Auto 100 /uL (0-100); Basophils Percent Auto 0.7 % (0-2); Eosinophils Absolute Auto 200 /uL (0-450); Eosinophils Percent Auto 1.8 % (2-4); Hematocrit 47.9 % (36-46); Hemoglobin 16.5 g/dL (12.0-16.0); Lymphocytes Absolute Auto 2100 /uL (1100-4500); Lymphocytes Percent Auto 23.6 % (25-40); Mean Corpuscular HGB Conc 34.4 % (30-36); Mean Corpuscular Hemoglobin 32.7 PG (26-34); Monocytes Absolute Auto 700 /uL (0-900); Neutrophils Absolute Auto 5900 /uL (1500-7000); Neutrophils Percent Auto 65.9 % (50-75); Platelet Count 237 X10^3/uL (150-400); Red Blood Cell Count 5.05 X10^6/uL (4.0-5.2); Red Cell Distribution Width 13.8 % (11.6-14.8); White Blood Cell Count 8.9 X10^3/uL (4.5-11.0)
--- NOTE | 2024-03-26 18:10 | DI.CT.S_ITS ---
PROCEDURE: CT ABDOMEN PELVIS W CON INDICATIONS: R abdominal pain hx of stones TECHNIQUE: After the administration of intravenous contrast, axial sections acquired from the lung bases to the pubic symphysis. Coronal and sagittal reformats were performed. For radiation dose reduction, the following was used: automated exposure control, adjustment of mA and/or kV according to patient size. COMPARISON: [facility], CT, CT ABDOMEN PELVIS W CON, 01/25/2023, 15:32. FINDINGS: Image quality: Diagnostic. Lower Chest: No significant findings. ABDOMEN: Liver: No solid mass. Steatosis. Gallbladder: No radiopaque gallstones or wall thickening. Biliary ducts: No biliary dilation. Pancreas: No ductal dilation. Spleen: Size is within normal limits. Adrenal Glands: No adrenal nodules. Kidneys and Ureters: No hydronephrosis. No solid mass. No complex renal cystic lesion which requires follow up. Stomach and Bowel: Normal colonic caliber, without significant wall thickening. Prominent colonic diverticula are present without appreciable inflammatory change. Appendix is normal. Peritoneum: No abnormal intraperitoneal fluid. No free air. Ventral Wall: No significant ventral hernia. Abdominal Nodes: No retroperitoneal or mesenteric adenopathy by size criteria. Vessels: Aorta demonstrates aneurysmal dilation of the distal abdominal aorta immediately superior to the iliac bifurcation, unchanged. PELVIS: Pelvic Organs: Unremarkable. Bladder: No bladder wall thickening, accounting for underdistention. Pelvic Nodes: No enlarged lymph nodes. Miscellaneous: No inguinal hernias are seen. Bones: No aggressive osseous abnormality. IMPRESSION: Appendix is normal. No hydronephrosis. Diverticulosis. Dictated by: Justine Bañuelos M.D. on 03/26/2024 at 19:26 Approved by: Justine Bañuelos M.D. on 03/26/2024 at 19:28
--- NOTE | 2024-03-26 18:32 | PC.NURSE ---
Patient returned from CT, pain at IV site with administration of IV contrast in CT. cartography/mapping technician brought patient back to room, reported infiltration of IV. Heat applied to site with compression. New IV will be started.
[2024-03-26] MEDS: ACETAMINOPHEN IV 1,000 MG/100 ML VIAL 400 MG IV (19:11)
--- NOTE | 2024-03-26 19:42 | ED.GENADULT ---
HPI - General Adult General Chief complaint: Abdominal Pain Stated complaint: abd and back px, sob Time Seen by Provider: 03/26/24 18:08 Source: patient Mode of arrival: Family Vehicle History of Present Illness HPI narrative: Patient is a 68-year-old female who is here for evaluation of right sided back and right-sided abdominal pain. She was also having bruising along her lower abdomen. She was also having intermittent issues with rashes and itching. The itching in the rash has been present for the past several months. She has seen Dermatology. She was taking Zyrtec. She also has topical cream that she can use. She states she was told that she needs to see an floor covering layer. No new medications or exposures. About 3 weeks ago she started to develop some bruising along her lower abdomen. No trauma. She states that it is still there but it is improving. The past couple days she was noticed some pain in the right side of her abdomen and right flank. She has kidney stones in the past. No fevers. No vomiting. No recent illnesses. No sore throat. No bruising other than on her lower abdomen. Related Data Home Medications Medication Instructions Recorded Confirmed atenolol 25 mg tablet 12.5 mg PO DAILY 09/16/21 11/17/23 budesonide 160 mcg-glycopyr 9 2 inh inhalation BID 09/16/21 11/17/23 mcg-formot 4.8 mcg/actuation HFA inhaler (Breztri Aerosphere) rosuvastatin 20 mg tablet 20 mg PO DAILY 02/16/23 11/17/23 esomeprazole magnesium 20 mg 20 mg PO DAILY 11/17/23 11/17/23 capsule,delayed release losartan 25 mg tablet 25 mg PO DAILY 11/17/23 11/17/23 losartan 50 mg tablet 50 mg PO DAILY 11/17/23 11/17/23 desoximetasone 0.25 % topical cream applic topical 03/21/24 03/21/24 hydroxyzine pamoate 25 mg capsule 25 mg PO DAILY PRN 03/21/24 03/21/24 Previous Rx's Medication Instructions Recorded estradiol 0.01% (0.1 mg/gram) 1 g vaginal 2XW #42.5 grams 09/21/23 vaginal cream (Estrace) naproxen 500 mg tablet 500 mg PO BID #40 tabs 11/17/23 clotrimazole-betamethasone 1 1 applic topical BID 2 weeks #45 03/21/24 %-0.05 % topical cream grams Allergies Allergy/AdvReac Type Severity Reaction Status Date / Time Sulfa (Sulfonamide Allergy Unknown Hives Verified 11/17/23 11:53 Antibiotics) Penicillins Allergy Verified 03/21/24 11:15 Quinolones AdvReac Intermediate Verified 11/17/23 11:53 Review of Systems Review of Systems ROS Unobtainable: All systems reviewed & are unremarkable except as noted in HPI and below Patient History Medical History Vaginal voiding Postmenopausal atrophic vaginitis History of UTI History of nephrolithiasis Retained ureteral stent Right ureteral calculus Osteoarthritis (~2014) Sleep apnea (~2018) COPD (chronic obstructive pulmonary disease) (~2016) Asthma (~2009) Shoulder pain (~2018) Osteoporosis (~2014) Chronic back pain (~2011) Carpal tunnel syndrome (~1994) Gastric reflux (~2019) Gastric ulcer (~2019) Diverticular disease (~2009) Gonsales's esophagus (~2019) Lung cancer (~2016) Surgical History History of ureter stent Anesthesia History of knee surgery (~2009) Status post lobectomy of lung (~2017) History of carotid endarterectomy (~2017) History of hysterectomy (~2002) History of carpal tunnel release (~1994) Family History Father History of heart disease Hypertension Hyperlipidemia Mother History of heart disease Alzheimer's disease Brother History of heart disease Grandmother Cancer Sister Cancer Social History number of children: 2 household members: spouse Smoking Status: Former smoker alcohol intake: never Smoking Status: Former smoker Substance Use Type: does not use Exam Initial Vital Signs Initial Vital Signs: Vital Signs Temperature 97.7 F 03/26/24 13:59 Pulse Rate 67 03/26/24 13:59 Respiratory Rate 20 03/26/24 13:59 Blood Pressure 166/72 H 03/26/24 13:59 Pulse Oximetry 98 03/26/24 13:59 Oxygen Delivery Method Room Air 03/26/24 13:59 Const General: cooperative, comfortable and No ill appearing [facility] Head: normal to inspection and normocephalic Resp Effort & Inspection: normal respiratory effort Cardio Rate: regular rate GI Inspection: normal to inspection and non-distended Palpation: soft, No firm, No guarding and tender (Mild tenderness right side abdomen) Back/Spine/Pelvis Back: No CVA tenderness Skin Other: No rashes noted. She does have what appears to be bruising on both sides of her lower abdomen. No signs of cellulitis. No urticaria noted. Neuro General: patient alert, patient awake, patient oriented x3 and moves all extremities Extrem General: No edema Course Orders Ordered: ED Orders 03/26/24 15:56 Urine Microscopic Stat 03/26/24 16:09 Comprehensive Metabolic Panel Stat Lipase Stat 03/26/24 16:42 Complete Blood Count AUTO DIFF Stat 03/26/24 18:10 CT abdomen pelvis w con Stat 03/26/24 19:48 PTT Partial Thromboplastin Earnest Stat Prothrombin Time INR Stat Discontinued Medications Acetaminophen (Ofirmev) 1,000 mg in 100 mls @ 400 mls/hr IV NOW ONE Stop: 03/26/24 19:01 Last Infusion: 03/26/24 19:32 Dose: Infused Documented By: Admin: 03/26/24 19:11 Dose: 400 mls/hr Documented By: RICARDO Ondansetron HCl (Ondansetron 4 Mg/2 Ml Inj) 4 mg IV NOW PRN PRN Reason: Nausea And Vomiting Ondansetron HCl (Ondansetron 4 Mg Odt) 4 mg PO NOW PRN PRN Reason: Nausea And Vomiting Vital Signs Vital signs: Vital Signs - 8 hr 03/26/24 18:07 03/26/24 18:08 03/26/24 18:08 Pulse Rate 68 66 Blood Pressure 138/69 Pulse Oximetry 90 L 97 03/26/24 19:07 03/26/24 19:30 03/26/24 20:00 Pulse Rate 78 68 67 Blood Pressure Pulse Oximetry 97 99 99 03/26/24 20:30 Pulse Rate 71 Blood Pressure Pulse Oximetry 98 Medical Decision Making Lab Data Lab results reviewed: Yes I reviewed the patient's lab results. 03/26/24 16:42 03/26/24 16:09 Labs: Lab Results 03/26/24 03/26/2403/26/24 Range/Units 15:56 16:09 16:42 WBC 8.9 (4.5-11.0) X10^3/uL RBC 5.05 (4.0-5.2) X10^6/uL Hgb 16.5 H (12.0-16.0) g/dL Hct 47.9 H (36-46) % MCV 95.0 (80-100) fL MCH 32.7 (26-34) PG MCHC 34.4 (30-36) % RDW 13.8 (11.6-14.8) % Plt Count 237 (150-400) X10^3/uL Neut % (Auto) 65.9 (50-75) % Lymph % (Auto) 23.6 L (25-40) % Parke % (Auto) 8.0 (3-14) % Eos % (Auto) 1.8 L (2-4) % Baso % (Auto) 0.7 (0-2) % Neut # (Auto) 5900 (4443-1851) /uL Lymph # (Auto) 2100 (8245-2403) /uL Parke # (Auto) 700 (0-900) /uL Eos # (Auto) 200 (0-450) /uL Baso # (Auto) 100 (0-100) /uL PT (9.4-12.5) SECONDS INR (0.9-1.3) APTT (25.1-36.5) SECONDS Sodium 139 (137-145) mmol/L Potassium 3.9 (3.4-5.1) mmol/L Chloride 107 (98-107) mmol/L Carbon Dioxide 25 (22-32) mmol/L BUN 13 (7-17) mg/dL Creatinine 0.83 (0.52-1.04) mg/dL Estimated GFR > 60 (>60) mL/min BUN/Creatinine Ratio 15.7 (6-22) Glucose 96 (80-110) mg/dL Calcium 9.5 (8.4-10.2) mg/dL Total Bilirubin 1.4 H (0.2-1.3) mg/dL AST 48 H (14-36) IU/L ALT 33 (<35) IU/L Alkaline Phosphatase 75 (38-126) U/L Total Protein 8.0 (6.3-8.2) g/dL Albumin 4.6 (3.5-5.0) g/dL Globulin 3.4 (1.7-4.1) g/dL Albumin/Globulin Ratio 1.4 (1.0-2.8) Lipase 72 (23-300) U/L Urine RBC None seen (0-5/HPF) Urine WBC None seen (0-5/HPF) Ur Squamous Epith Cells None seen (0-5/HPF) Urine Bacteria None seen (None) Ur Culture Indicated? Cult not indicated Vol Urine Centrifuged 10ml (spun) 03/26/24 Range/Units 19:48 WBC (4.5-11.0) X10^3/uL RBC (4.0-5.2) X10^6/uL Hgb (12.0-16.0) g/dL Hct (36-46) % MCV (80-100) fL MCH (26-34) PG MCHC (30-36) % RDW (11.6-14.8) % Plt Count (150-400) X10^3/uL Neut % (Auto) (50-75) % Lymph % (Auto) (25-40) % Parke % (Auto) (3-14) % Eos % (Auto) (2-4) % Baso % (Auto) (0-2) % Neut # (Auto) (4347-7402) /uL Lymph # (Auto) (3424-6017) /uL Parke # (Auto) (0-900) /uL Eos # (Auto) (0-450) /uL Baso # (Auto) (0-100) /uL PT 11.5 (9.4-12.5) SECONDS INR 1.0 (0.9-1.3) APTT 35 (25.1-36.5) SECONDS Sodium (137-145) mmol/L Potassium (3.4-5.1) mmol/L Chloride (98-107) mmol/L Carbon Dioxide (22-32) mmol/L BUN (7-17) mg/dL Creatinine (0.52-1.04) mg/dL Estimated GFR (>60) mL/min BUN/Creatinine Ratio (6-22) Glucose (80-110) mg/dL Calcium (8.4-10.2) mg/dL Total Bilirubin (0.2-1.3) mg/dL AST (14-36) IU/L ALT (<35) IU/L Alkaline Phosphatase (38-126) U/L Total Protein (6.3-8.2) g/dL Albumin (3.5-5.0) g/dL Globulin (1.7-4.1) g/dL Albumin/Globulin Ratio (1.0-2.8) Lipase (23-300) U/L Urine RBC (0-5/HPF) Urine WBC (0-5/HPF) Ur Squamous Epith Cells (0-5/HPF) Urine Bacteria (None) Ur Culture Indicated? Vol Urine Centrifuged Urine Dip Bedside Urine Glucose Negative Bedside Urine Bilirubin - Negative Bedside Urine Ketone - Negative Urine Specific [place] 1.005 Bedside Urine Occult Blood +/- Bedside Urine pH 6.0 Bedside Urine Protein - Negative Bedside Urine Urobilinogen - Negative Bedside Urine Nitrite - Negative Bedside Urine Leukocytes - Negative Esterase Point of care testing: Urine Dip Bedside Urine Glucose Negative Bedside Urine Bilirubin - Negative Bedside Urine Ketone - Negative Urine Specific [place] 1.005 Bedside Urine Occult Blood +/- Bedside Urine pH 6.0 Bedside Urine Protein - Negative Bedside Urine Urobilinogen - Negative Bedside Urine Nitrite - Negative Bedside Urine Leukocytes - Negative Esterase Imaging Data CT scan - abdomen/pelvis: Radiologist's Impression: PROCEDURE: CT ABDOMEN PELVIS W CON INDICATIONS: R abdominal pain hx of stones TECHNIQUE: After the administration of intravenous contrast, axial sections acquired from the lung bases to the pubic symphysis. Coronal and sagittal reformats were performed. For radiation dose reduction, the following was used: automated exposure control, adjustment of mA and/or kV according to patient size. COMPARISON: [facility], CT, CT ABDOMEN PELVIS W CON, 01/25/2023, 15:32. FINDINGS: Image quality: Diagnostic. Lower Chest: No significant findings. ABDOMEN: Liver: No solid mass. Steatosis. Gallbladder: No radiopaque gallstones or wall thickening. Biliary ducts: No biliary dilation. Pancreas: No ductal dilation. Spleen: Size is within normal limits. Adrenal Glands: No adrenal nodules. Kidneys and Ureters: No hydronephrosis. No solid mass. No complex renal cystic lesion which requires follow up. Stomach and Bowel: Normal colonic caliber, without significant wall thickening. Prominent colonic diverticula are present without appreciable inflammatory change. Appendix is normal. Peritoneum: No abnormal intraperitoneal fluid. No free air. Ventral Wall: No significant ventral hernia. Abdominal Nodes: No retroperitoneal or mesenteric adenopathy by size criteria. Vessels: Aorta demonstrates aneurysmal dilation of the distal abdominal aorta immediately superior to the iliac bifurcation, unchanged. PELVIS: Pelvic Organs: Unremarkable. Bladder: No bladder wall thickening, accounting for underdistention. Pelvic Nodes: No enlarged lymph nodes. Miscellaneous: No inguinal hernias are seen. Bones: No aggressive osseous abnormality. IMPRESSION: Appendix is normal. No hydronephrosis. Diverticulosis. MDM Narrative Medical decision making narrative: CT scan of abdomen pelvis shows no acute pathology. Her platelets are unremarkable. Coags unremarkable. Kidney functions unremarkable. She does have bruising in her lower abdomen but there was no signs of intra-abdominal hemorrhage. No signs of cellulitis. Unsure with the exact etiology of the bruising. There was no indication for further imaging studies. I do think that she would benefit from a follow-up with an floor covering layer. She can talk with her primary doctor about a referral for this. No fevers. She does not have thrombocytopenia. We discussed the use of Benadryl as needed when her symptoms are at their worse. She was given strict return precautions. She expressed understanding and agreement with plan. Discharge Plan Departure Patient Disposition: Home Clinical Impression: Abnormal bruising, Pruritus Instructions: DI for Itching Activity Restrictions/Additional Instructions: Continue to take all of your medications as directed. I do think that you would benefit from a follow-up with an floor covering layer. You may need a referral from your primary doctor for this. Can try Benadryl when the itching is at its worse. I would recommend keeping warm compresses over the area of your left arm where the IV infiltrated. You may develop some bruising over this area. Return to the emergency department for new or worsening symptoms. Prescriptions: No Action esomeprazole magnesium 20 mg capsule,delayed release(DR/EC) 20 mg PO DAILY losartan 25 mg tablet 25 mg PO DAILY losartan 50 mg tablet 50 mg PO DAILY naproxen 500 mg tablet 500 mg PO BID Qty: 40 0RF desoximetasone 0.25 % cream topical hydroxyzine pamoate 25 mg capsule 25 mg PO DAILY PRN clotrimazole-betamethasone 1-0.05 % cream 1 applic topical BID 14 Days Qty: 45 0RF atenolol 25 mg Tablet 12.5 mg PO DAILY Breztri Aerosphere 160-9-4.8 mcg/actuation Hfa Aerosol Inhaler 2 inh INHALATION BID rosuvastatin 20 mg tablet 20 mg PO DAILY estradiol [Estrace] 0.01 % (0.1 mg/gram) cream 1 g vaginal 2XW Qty: 42.5 3RF Rx Instructions: Insert 1 g intravaginally twice weekly lifelong. Referrals: Devan Jason MD [Primary Care Provider] - Stand Alone Forms: Patient Portal/API/Survey
[2024-03-26 20:03] LABS: Prothrombin Time 11.5 SECONDS (9.4-12.5)
[2024-03-26 20:05] LABS: PTT Partial Thromboplastin Tim 35 SECONDS (25.1-36.5)
== END 2024-03-26 20:49 | disposition home or self-care (01) ==
PROVIDERS: Emergency Medicine; Emergency Provider Emergency Medicine; PCP Internal Medicine
DX: R23.3 Spontaneous ecchymoses (principal); L29.9 Pruritus, unspecified; R10.9 Unspecified abdominal pain; M54.9 Dorsalgia, unspecified
CPT/HCPCS: 36415; 74177; 80053; 81003; 81015; 83690; 85025; 85610; 85730; 96365; 99284; J0134

== ENCOUNTER → 2024-09-17 12:58 | Outpatient (CLI) | payer MEDICARE, SELFPAY ==
[2023-01-25 21:41] VITALS: BMI 27.3
--- NOTE | 2024-09-17 12:59 | DI.RAD.S_ITS ---
PROCEDURE: XR KUB INDICATIONS: History of urinary calculi TECHNIQUE: One view of the abdomen acquired. COMPARISON: [facility], , XR KUB, 02/15/2023, 12:36. FINDINGS: Moderate vascular calcifications of the aorta and iliac vessels. Degenerative changes lower thoracic, lumbar spine with mild S-shaped scoliosis. Pattern of constipation. Right renal shadow is partially obscured by overlying bowel gas. No gross radiographic evidence of left renal calculus. Degenerative changes bilateral sacroiliac joints and hips. IMPRESSION: No radiographic evidence of acute abnormality. If symptoms persist or worsen, or there is high clinical suspicion of abdominal pelvic abnormality, CT without then with IV contrast or CT KUB could be performed. Dictated by: Avtar Mcmullen M.D. on 09/17/2024 at 15:00 Approved by: Avtar Mcmullen M.D. on 09/17/2024 at 15:03
== END ==
LOC: RAD 12:59
PROVIDERS: PCP Internal Medicine; Referring Provider Urology; Visit Provider Urology
DX: N20.2 Calculus of kidney with calculus of ureter (principal)
CPT/HCPCS: 74018

== ENCOUNTER → 2024-10-18 13:27 | Outpatient (CLI) | payer MEDICARE, SELFPAY ==
[2023-01-25 21:41] VITALS: BMI 27.3
--- NOTE | 2024-10-18 13:28 | DI.US.S_ITS ---
PROCEDURE: US CAROTID DOPPLER BI INDICATIONS: Abdominal aortic aneurysm without rupture TECHNIQUE: Color and pulse Doppler interrogation was performed of both carotid systems, with image documentation and velocity measurements. COMPARISON: [facility], [place], US CAROTID DOPPLER BI, 06/22/2023, 15:37. FINDINGS: Stenosis calculations are based on SRU (Society of Radiologists in Ultrasound) criteria. Right side: Brachial blood pressure: 159/71 mm Hg. Common carotid artery peak systolic velocity: 65 cm/sec. Internal carotid artery peak systolic velocity: 287 cm/sec. Internal carotid artery end diastolic velocity: 91 cm/sec. External carotid artery peak systolic velocity: 59 cm/sec. ICA/CCA peak systolic ratio: 4.4 . Mckeon scale imaging description: Mild mixed calcified and noncalcified plaque mid common carotid artery. Heavy mixed calcified and noncalcified plaque in the carotid bulb extending into the ICA origin causing a significant stenosis. Distally, there is spectral broadening of the waveform and increased velocity. Maintenance of forward diastolic flow at an elevated velocity. Percent internal carotid artery stenosis: Greater than 70% . Vertebral artery: Flow direction is antegrade. Left side: Brachial blood pressure: 152/67 mm Hg. Common carotid artery peak systolic velocity: 148 cm/sec. Internal carotid artery peak systolic velocity: 98 cm/sec. Internal carotid artery end diastolic velocity: 23 cm/sec. External carotid artery peak systolic velocity: 105 cm/sec. ICA/CCA peak systolic ratio: 0.66 . Mckeon scale imaging description: Trace amount of sessile calcification in the common carotid and carotid bulb. Percent internal carotid artery stenosis: Less than 50% . Vertebral artery: Flow direction is antegrade. IMPRESSION: 1. In the right carotid artery, there is a probably hemodynamically significant stenosis at the internal carotid artery origin based on peak systolic velocity criteria. This has significantly progressed since the previous exam. 2. In the left carotid artery, there is less than 50% stenosis based on peak systolic velocity criteria. The patient has undergone left carotid endarterectomy. 3. Antegrade vertebral arteries. Dictated by: Becca Sam M.D. on 10/19/2024 at 15:29 Approved by: Becca Sam M.D. on 10/19/2024 at 15:40
== END ==
PROVIDERS: PCP Internal Medicine; Referring Provider Internal Medicine Cardiovascular Disease; Visit Provider Internal Medicine Cardiovascular Disease
DX: I71.40 Abdominal aortic aneurysm, without rupture, unspecified (principal); R05.1 Acute cough; I65.23 Occlusion and stenosis of bilateral carotid arteries
CPT/HCPCS: 93880

== ENCOUNTER → 2024-10-18 13:29 | Outpatient (CLI) | payer MEDICARE, SELFPAY ==
[2023-01-25 21:41] VITALS: BMI 27.3
--- NOTE | 2024-10-18 13:30 | DI.US.S_ITS ---
PROCEDURE: US RETRO PERITONEAL LIMITED INDICATIONS: Abdominal aortic aneurysm without rupture TECHNIQUE: Real time scanning was performed of the aorta and iliac arteries, with image documentation. COMPARISON: None. FINDINGS: Aorta: Proximal aortic diameter measures 2.3 cm. Mid-aorta measures 2.0 cm. Distal aortic diameter is 4.0 cm. Distal aortic aneurysm contains circumferential, noncalcified intramural thrombus reducing aortic lumen. Iliac arteries: Right common iliac artery measures 0.8 cm. Left common iliac artery measures 0.6 cm. IMPRESSION: 4.0 cm distal abdominal aortic aneurysm with intraluminal thrombus. The aneurysm is minimally increased in size compared to three years ago where it measured 3.7 cm maximally. One year follow-up is recommended. Dictated by: Becca Sam M.D. on 10/19/2024 at 14:25 Approved by: Becca Sam M.D. on 10/19/2024 at 15:21
== END ==
PROVIDERS: PCP Internal Medicine; Referring Provider Internal Medicine Cardiovascular Disease; Visit Provider Internal Medicine Cardiovascular Disease
DX: I71.40 Abdominal aortic aneurysm, without rupture, unspecified (principal); I65.23 Occlusion and stenosis of bilateral carotid arteries
CPT/HCPCS: 76775; 93880

== ENCOUNTER → 2024-10-29 13:56 | Outpatient (CLI) | payer MEDICARE, SELFPAY ==
[2023-01-25 21:41] VITALS: BMI 27.3
[2024-10-29 14:21] LABS: Estimated Glomerular Filt Rate > 60 mL/min (>60)
== END ==
PROVIDERS: PCP Internal Medicine; Referring Provider Internal Medicine; Visit Provider Internal Medicine
DX: R06.02 Shortness of breath (principal)
CPT/HCPCS: 36415; 82565

== ENCOUNTER → 2024-11-01 11:29 | Outpatient (CLI) | payer MEDICARE, SELFPAY ==
[2023-01-25 21:41] VITALS: BMI 27.3
--- NOTE | 2024-11-01 11:31 | DI.CT.S_ITS ---
PROCEDURE: CT CHEST W CON INDICATIONS: SOB TECHNIQUE: After the administration of intravenous contrast, 5 mm thick sections acquired from the pulmonary apices to the posterior costophrenic angles. 1 mm axial lung, 5 mm thick coronal and sagittal reformats and 7 mm axial MIP were acquired. For radiation dose reduction, the following was used: automated exposure control, adjustment of mA and/or kV according to patient size. COMPARISON: [facility], CT, CT CHEST WO CON, 05/06/2023, 12:20. FINDINGS: Image quality: Diagnostic Lungs and pleura: Severe emphysema. Presumed areas of scarring including some thick areas at the apices, similar to prior imaging. No airspace consolidation. No pleural effusions. No new or enlarging suspicious pulmonary nodule. Left lung postsurgical changes. Mediastinum, heart, and esophagus: Small hiatal hernia. Coronary calcifications. Overall normal heart size. No enlarged lymph nodes by size criteria Chest wall and thyroid: Unremarkable Upper abdomen: No gross abnormality, partially visualized. Possible hepatic steatosis Bones: There are degenerative osseous changes. IMPRESSION: Left lung postsurgical changes. Severe background emphysema. No new or enlarging suspicious pulmonary nodules. Scattered areas of scarring and atelectasis, including thickened areas at the apices appear similar. Coronary calcifications. Other findings above. Dictated by: Jason Carmichael M.D. on 11/03/2024 at 8:48 Approved by: Jason Carmichael M.D. on 11/03/2024 at 8:52
== END ==
PROVIDERS: PCP Internal Medicine; Referring Provider Internal Medicine; Visit Provider Internal Medicine
DX: J43.9 Emphysema, unspecified (principal); R06.02 Shortness of breath; R05.1 Acute cough; K44.9 Diaphragmatic hernia without obstruction or gangrene; I25.10 Atherosclerotic heart disease of native coronary artery without angina pectoris
CPT/HCPCS: 71260; Q9967

== ENCOUNTER → 2024-12-12 11:52 | Outpatient (CLI) | payer MEDICARE, SELFPAY ==
[2023-01-25 21:41] VITALS: BMI 27.3
--- NOTE | 2024-12-12 11:53 | DI.US.S_ITS ---
PROCEDURE: US EXTREMELY NONVASC UPPER RT INDICATIONS: Soft tissue US, lump of Rt thigh TECHNIQUE: Real-time scanning was performed of the right thigh at the area of concern , with image documentation. COMPARISON: None. FINDINGS: There is a hyperechoic in capsulated mass lesion at the area of concern without internal vascularity measuring 1.8 x 1.3 x 1.0 cm IMPRESSION: Probable soft tissue lipoma Approved by: Kenny Flores M.D. on 12/13/2024 at 15:15
== END ==
LOC: US 11:52
PROVIDERS: PCP Student in an Organized Health Care Education/Training Program; Referring Provider Student in an Organized Health Care Education/Training Program; Visit Provider Student in an Organized Health Care Education/Training Program
DX: R22.41 Localized swelling, mass and lump, right lower limb (principal)
CPT/HCPCS: 76882

== ENCOUNTER → 2025-01-31 10:51 | Outpatient (CLI) | payer MEDICARE, SELFPAY ==
[2023-01-25 21:41] VITALS: BMI 27.3
--- NOTE | 2025-01-31 10:55 | DI.MG.S_ITS ---
MM screening mammo BI: 01/31/2025. BI-RADS: 1 CLINICAL: 69-year old female for bilateral screening mammogram. Tyrer-Cuzick lifetime risk of 6.5%. Current reported family history of breast cancer: maternal grandmother and sister. PRIOR EXAMS 01/31/2024, 01/20/2023, 01/18/2022. MAMMOGRAPHY TECHNIQUE: 2D and 3D (tomosynthesis) digital mammographic views obtained, with additional images as needed for full coverage. Current study was also evaluated with a Computer Aided Detection (CAD) system. DENSITY A. The breasts are almost entirely fatty. MAMMOGRAPHY FINDINGS Bilateral: No suspicious mass, asymmetry, microcalcification, or other abnormality seen. IMPRESSION: * No evidence of malignancy. RECOMMENDATIONS Bilateral * Annual screening mammography. OVERALL ASSESSMENT CATEGORY BI-RADS-1: Negative. The [employer] recommends annual screening mammography beginning at age 40 for women with average risk of breast cancer. ELECTRONICALLY SIGNED: Ermelinda Sarabia M.D. on 02/01/2025 at 11:43:15 PM PT Interpreting Station ID: [id number]
[2025-01-31 12:08] LABS: Add Manual Diff / Slide Review NO; Hematocrit 43.3 % (36-46); Hemoglobin 14.7 g/dL (12.0-16.0); Lymphocytes Absolute Auto 1400 /uL (1100-4500); Mean Corpuscular HGB Conc 34.0 % (30-36); Mean Corpuscular Hemoglobin 32.8 PG (26-34); Mean Corpuscular Volume 96.4 fL (80-100); Platelet Count 240 X10^3/uL (150-400)
[2025-01-31 12:37] LABS: Alanine Aminotransferase 24 IU/L (<35); Albumin 4.4 g/dL (3.5-5.0); Albumin Globulin Ratio 1.6 (1.0-2.8); Alkaline Phosphatase 71 U/L (38-126); Blood Urea Nitrogen 15 mg/dL (7-17); Calcium 9.1 mg/dL (8.4-10.2); Carbon Dioxide 23 mmol/L (22-32); Chloride 107 mmol/L (98-107); Cholesterol 236 mg/dL (140-199); Estimated Glomerular Filt Rate > 60 mL/min (>60); Globulin 2.8 g/dL (1.7-4.1); Glucose 106 mg/dL (70-99); HDL Cholesterol 96 mg/dL (40-60); HEMOLYSIS < 15 (0-50); Potassium 4.5 mmol/L (3.4-5.1); Sodium 138 mmol/L (137-145); Total Protein 7.2 g/dL (6.3-8.2); Triglycerides 114 mg/dL (35-150)
[2025-01-31 15:50] LABS: Thyroid Stimulating Hormone 0.993 uIU/mL (0.47-4.68)
== END ==
LOC: MAMMO 10:52
PROVIDERS: PCP Student in an Organized Health Care Education/Training Program; Referring Provider Student in an Organized Health Care Education/Training Program; Visit Provider Student in an Organized Health Care Education/Training Program
DX: Z12.31 Encounter for screening mammogram for malignant neoplasm of breast (principal); I71.9 Aortic aneurysm of unspecified site, without rupture; I10 Essential (primary) hypertension; Z80.3 Family history of malignant neoplasm of breast; R92.313 Mammographic fatty tissue density, bilateral breasts
CPT/HCPCS: 36415; 77063; 77067; 80053; 80061; 84443; 85025

== ENCOUNTER → 2025-01-31 13:21 | Outpatient (CLI) | payer MEDICARE, SELFPAY ==
[2023-01-25 21:41] VITALS: BMI 27.3
[2025-01-31 14:31] LABS: Microalbumi Creatinin Ratio Ur 28.0 ug/mg CR (<30)
== END ==
PROVIDERS: PCP Student in an Organized Health Care Education/Training Program; Referring Provider Student in an Organized Health Care Education/Training Program; Visit Provider Student in an Organized Health Care Education/Training Program
DX: I10 Essential (primary) hypertension (principal); I71.9 Aortic aneurysm of unspecified site, without rupture
CPT/HCPCS: 82043; 82570

== ENCOUNTER → 2025-02-28 11:32 | Outpatient (CLI) | payer MEDICARE, SELFPAY ==
[2023-01-25 21:41] VITALS: BMI 27.3
--- NOTE | 2025-02-28 11:36 | DI.RAD.S_ITS ---
PROCEDURE: XR DEXA AXIAL SKELETON INDICATIONS: Bilateral kidney COMPARISON: None. FINDINGS: Lumbar Spine: Bone mineral density 0.979 g/cm2, T score -0.6. Left Femoral Neck: Bone mineral density 0.552 g/cm2, T score -2.7. Left Hip: Bone mineral density 0.740 g/cm2, T score -1.7. Fracture Risk Calculation (when applicable): 10-year fracture risk of a major osteoporotic fracture 15 percent and of a hip fracture 3.6 percent. (T score greater or equal to -1.0 to: NORMAL) (T score from -1.1 to -2.4: OSTEOPENIA) (T score less than or equal to -2.5: OSTEOPOROSIS) IMPRESSION: Osteoporosis by WHO classification. Follow-up guidelines as follows: Osteoporosis: Consider a repeat DEXA and Vertebral Fracture Assessment (VFA) exam in 2 years or sooner if medically necessary, to reassess this patient's status. Osteopenia: Consider a repeat DEXA in 2-3 years to reassess this patient's status, or if there is a new clinical indication. Normal: Consider a repeat DEXA in 5 years or sooner, or if there is a new clinical indication. All treatment decisions require clinical judgment and consideration of individual patient factors, including patient preferences, comorbidities, previous drug use, risk factors not captured in the FRAX model (e.g., frailty, falls, vitamin D deficiency, increased bone turnover, interval significant decline in bone density ) and possible under- or over-estimation of fracture risk by FRAX. In addition, the NOF Guide recommends that FDA-approved medical therapies be considered in postmenopausal women and men age >= 50 years with a: * Hip or vertebral (clinical or morphometric) fracture * T-score of <=-2.5 at the spine or hip * Ten-year fracture probability by FRAX of >= 3% for hip fracture or >=20% for major osteoporotic fracture. Dictated by: Robert Schneider M.D. on 03/01/2025 at 14:59 Approved by: Robert Schneider M.D. on 03/01/2025 at 15:00
--- NOTE | 2025-02-28 11:36 | DI.US.S_ITS ---
PROCEDURE: US RENAL COMPLETE INDICATIONS: Bilateral flank pain TECHNIQUE: Real-time scanning was performed of the kidneys and bladder, with image documentation. COMPARISON: None. FINDINGS: Kidneys: Kidneys are normal in size. Right kidney measures 9.5 cm long; left kidney measures 9.0 cm long. Right renal cortical thickness is 1.8 cm; left renal cortical thickness is 1.9 cm. Renal cortical echotexture is normal. No hydronephrosis. 1 centimeter nonobstructing stone is seen in lower pole left kidney. 6 millimeter nonobstructing stone is seen in upper pole left kidney. No suspicious solid mass lesions. Bladder: Pre-void bladder volume is 65 mL. Post-void residual is 0 mL. Pre- void images demonstrate no intraluminal masses or stones. On pre-void images, bilateral ureteral jets are noted with color Doppler interrogation. (Of note, ureteral jets may not be detectable in up to 25% of cases due to insufficient differences in specific gravity between ureteral and bladder urine). Miscellaneous: No free pelvic fluid. IMPRESSION: 1. Nonobstructing stones in left kidney as above. No hydronephrosis or solid appearing renal lesion. 2. Normal appearing right kidney and urinary bladder. Dictated by: Sonny Kebede M.D. on 03/01/2025 at 11:18 Approved by: Sonny Kebede M.D. on 03/01/2025 at 11:19
[2025-02-28 13:43] LABS: Alanine Aminotransferase 19 IU/L (<35); Cholesterol 186 mg/dL (140-199); HDL Cholesterol 87 mg/dL (40-60); Triglycerides 143 mg/dL (35-150)
== END ==
LOC: RAD 11:34
PROVIDERS: PCP Student in an Organized Health Care Education/Training Program; Referring Provider Student in an Organized Health Care Education/Training Program; Visit Provider Student in an Organized Health Care Education/Training Program
DX: N20.0 Calculus of kidney (principal); R10.A0 Flank pain, unspecified side; M81.0 Age-related osteoporosis without current pathological fracture; E78.00 Pure hypercholesterolemia, unspecified; R74.01 Elevation of levels of liver transaminase levels
CPT/HCPCS: 36415; 76770; 77080; 80061; 82172; 84450; 84460

== ENCOUNTER → 2025-03-08 13:00 | Outpatient (CLI) | payer MEDICARE, SELFPAY ==
[2023-01-25 21:41] VITALS: BMI 27.3
--- NOTE | 2025-03-08 13:01 | DI.CT.S_ITS ---
PROCEDURE: CT KIDNEY URETER BLADDER (KUB) INDICATIONS: Kidney stones TECHNIQUE: CT of the abdomen and pelvis was obtained without intravenous contrast. Coronal and sagittal reformats were performed. For radiation dose reduction, the following was used: automated exposure control, adjustment of mA and/or kV according to patient size. COMPARISON: [facility], CT, CT ABDOMEN PELVIS W CON, 03/26/2024, 18:59. FINDINGS: Image quality: Diagnostic. Lower Chest: Clear lung bases. Normal size heart. ABDOMEN: Liver: No contour-deforming mass. Gallbladder: No wall thickening or calcified stones. Biliary ducts: Nondilated. Pancreas: Normal size and morphology without visible ductal dilatation or inflammation. Spleen: Size is within normal limits. Occasional punctate calcification. Adrenal Glands: No adrenal nodules. Kidneys and Ureters: No hydronephrosis or nephrolithiasis. There is a wispy hyperdensity in the parenchyma of the lower pole left kidney. No contour deforming mass or perinephric inflammation. Nondilated ureters. Stomach and Bowel: Numerous large diverticula throughout the sigmoid colon. Several are impacted. None appear inflamed. The remainder of the colon appears normal. Normal appendix. Non dilated small bowel are stomach. Peritoneum: No free fluid, fluid collections, free air, or significant intraperitoneal fat stranding. Ventral Wall: No significant hernia. Abdominal Nodes: No retroperitoneal or mesenteric adenopathy by size criteria. Vessels: Fusiform distal abdominal aorta to the level of the iliac bifurcation measuring 5 cm in length. Cross-sectional diameter measures 4.4 x 4.0 cm. Heavy peripheral calcification proximally and in the splenic artery. Moderate calcification in the common in external iliac vessels. PELVIS: Pelvic Organs: Surgically absent. Bladder: No stones or wall thickening. Pelvic Nodes: No enlarged lymph nodes. Miscellaneous: No inguinal hernias are seen. Bones: No aggressive osseous abnormality. Degenerative disc height loss and vacuum phenomenon L4-5 and L5-S1. IMPRESSION: No urinary calcifications. Minimal calcification seen in the left lower pole kidney is in the parenchyma, outside the collecting system. No secondary signs of urinary obstruction. Abdominal aortic aneurysm. Stable in the past year. Large sigmoid colon diverticula. No inflammation. Dictated by: Becca Sam M.D. on 03/08/2025 at 13:52 Approved by: Becca Sam M.D. on 03/08/2025 at 14:00
[2025-03-08 13:23] LABS: Estimated Glomerular Filt Rate > 60 mL/min (>60)
== END ==
PROVIDERS: PCP Student in an Organized Health Care Education/Training Program; Referring Provider Student in an Organized Health Care Education/Training Program; Visit Provider Urology
DX: R10.A3 Flank pain, bilateral (principal); N20.1 Calculus of ureter; N13.30 Unspecified hydronephrosis; N20.0 Calculus of kidney; I71.40 Abdominal aortic aneurysm, without rupture, unspecified; K57.30 Diverticulosis of large intestine without perforation or abscess without bleeding
CPT/HCPCS: 36415; 74176; 82565

== ENCOUNTER → 2025-03-12 12:26 | Outpatient (CLI) | payer MEDICARE, SELFPAY ==
[2023-01-25 21:41] VITALS: BMI 27.3
[2025-03-12 13:13] LABS: Appearance Urine UA CLEAR; Bilirubin Urine UA NEGATIVE (NEGATIVE); Color Urine UA YELLOW; Glucose Urine UA NEGATIVE (Negative); Ketones Urine UA NEGATIVE (NEGATIVE); Leukocyte Esterase Urine UA NEGATIVE (NEGATIVE); Nitrite Urine UA NEGATIVE (Negative); Occult Blood Urine UA TRACE-INTACT (Negative); Protein Urine UA NEGATIVE (Negative); Specific Gravity Urine UA 1.010 (1.000-1.035); Urobilinogen Urine UA 0.2 E.U./dL (0.2)
[2025-03-12 13:14] LABS: pH Urine UA 6.0 (4.5-8.0)
[2025-03-12 13:24] LABS: Culture Indicated Urine Cult Not Indicated
== END ==
PROVIDERS: PCP Student in an Organized Health Care Education/Training Program; Referring Provider Student in an Organized Health Care Education/Training Program; Visit Provider Urology
DX: R39.9 Unspecified symptoms and signs involving the genitourinary system (principal); Z87.442 Personal history of urinary calculi
CPT/HCPCS: 81001